=== PATIENT | female | born 1945 | race Caucasian/White ===

== ENCOUNTER 2017-11-12 19:32 | Observation (INO) | payer MEDICARE, SELFPAY ==
[2017-11-12] VITALS (8 sets, daily range): BP systolic 110–133; BP diastolic 57–79; PULSE 63–80; RESP 15–27; TEMP 36.5–36.6; O2SAT 94–100; BMI 25.4; BMI 25.2
--- NOTE | 2017-11-12 19:45 | RAD_ITS ---
STUDY: X-RAY CHEST REASON FOR EXAM: Female, 72 years old. CHEST PAIN TECHNIQUE: Single frontal view of the chest. COMPARISON: June 14, 2017 FINDINGS: Chronic appearing increased interstitial lung markings. There are multiple median sternotomy wires. There is an elevated right hemidiaphragm. There is bilateral basilar infiltrate / atelectasis. There are small bilateral pleural effusions. Normal heart size. Normal mediastinum and mario. Normal visualized pulmonary arteries. There is atherosclerotic calcification of the aortic arch with tortuosity. There are diffuse degenerative changes of the visualized thoracic spine. There is degenerative osteoarthritis of the bilateral shoulders. There is no demonstrated abnormality of the visualized soft tissue structures of the upper abdomen. RAD/Chest 1 View (Portable) IMPRESSION: There is bilateral basilar infiltrate / atelectasis. There are small bilateral pleural effusions. There has been improvement in the size of the bilateral pleural effusion. Electronically Signed: Mohit Duque MD at 20:17 EST , Service support ,
--- NOTE | 2017-11-12 19:45 | EKG12_ITS ---
Test Reason : CP Blood Pressure : / mmHG Vent. Rate : 075 BPM Atrial Rate : 075 BPM P-R Int : 118 ms QRS Dur : 080 ms QT Int : 378 ms P-R-T Axes : 046 040 116 degrees QTc Int : 422 ms Normal sinus rhythm Septal infarct , age undetermined T wave abnormality, consider lateral ischemia Abnormal ECG Confirmed by MONE DONAHUE, PATRICE ([id number]), communications editor RACQUEL MERA ([id number]) on 11/15/2017 3:49:09 PM Referred By: SUSAN Confirmed By:PATRICE SHORE MD
[2017-11-12 19:57] LABS: Absolute Neutrophil Count 6.2 X10^3/uL (2.0-7.7); Basophil# 0.01 X10^3/uL; Basophil% 0.1 % (0-1); Eosinophil# 0.09 X10^3/uL; Eosinophils% 1.1 % (0-5); Hematocrit 43.1 % (37-47); Hemoglobin 13.1 g/dl (12.0-15.0); Mean Corp Hgb Conc 30.4 g/gl (32-36); Mean Corpuscular Hgb 33.2 pg (27.0-32.0); Mean Corpuscular Volume 109.1 fL (81-99); Mean Platelet Vol. 10.9 fl (6.2-12.0); Monocyte# 0.56 X10^3/uL; Monocyte% 6.6 % (0-10); Neutrophil # 6.15 X10^3/uL (2.7-7.7); Neutrophil % 72.2 % (47-70); Platelet Count 170 K/mm3 (150-450); RBC Distribution Width CV 14.1 % (11.6-14.6); RBC Distribution Width SD 56.2 fl (35.1-43.9); Red Blood Count 3.95 M/mm3 (4.2-5.4); White Blood Count 8.5 K/mm3 (4.4-11.0)
[2017-11-12 19:58] LABS: POSITIVE COUNT NO; POSITIVE DIFFERENTIAL NO; POSITIVE MORPHOLOGY NO
--- NOTE | 2017-11-12 20:12 | ED.VISSUMM ---
- ER Visit Summary Date of Service: 11/12/17 Chief Complaint: Chest pain History of Present Illness: The patient is a 72 F who presents with right lower chest pain for the past hour and a half. It started while she was at rest. She describes as sharp and on the right side. Nothing makes it worse or better. She took nitroglycerin at home but it did not help. Denies dyspnea. EMS administered one nitroglycerin and 4 baby aspirin. It lowered her blood pressure but it did not help her symptoms. She has a history of coronary artery disease with a CABG a few years ago. She states it feels similar to right before she had her CABG. Physical Examination: Vital signs reviewed. HEENT exam unremarkable. Heart is regular rate and rhythm without murmurs. Lungs are clear to auscultation. Wall is nontender to palpation. Abdomen is soft and nontender. Extremities reveal no edema. Peripheral pulses are equal. Skin exam normal. Neurologic exam normal. Test Results: EKG is normal sinus rhythm with rate 75. Nonspecific lateral ST changes noted. Chest x-ray reveals bibasilar atelectasis. Laboratory studies show troponin 0 0.04. Patient was given aspirin by EMS. Has a NUNU score of 4. I feel she requires admission for her chest pain due to her history. Discussed the case with the hospitalist for admission Emergency Department Course and Treatment: [] Treatment Plan: Admit Disposition: [] Impression: Chest pain This note was generated with [employer] dictation software. It may contain incorrect words, spelling, and punctuation that were not noted in review of the chart prior to signing ED Disposition - Plan for ED Patient: Chief Complaint: Chest Pain Referrals: Kulwinder Chew MD [Primary Care Provider] -
[2017-11-12 20:14] LABS: Anion Gap 2 (5-15); BUN 15 mg/dL (7-18); BUN/Creat Ratio 34.9 RATIO (10-20); Calcium,Total 8.8 mg/dL (8.5-10.1); Chloride 98 mmol/L (98-107); Creatinine, Serum 0.43 mg/dL (0.55-1.02); EST Glomerular Filtration Rate 153 mL/min (>60); Est Glom Filt Rate - Afr Amer 185 mL/min (>60); Estimated Creatinine Clearance 35.99 ml/min; Glucose 96 mg/dL (74-106); Potassium 4.2 mmol/L (3.5-5.1); Sodium Level 143 mmol/L (136-145)
--- NOTE | 2017-11-12 23:38 | PCM.HP.STD ---
Problem List (1) Essential hypertension Status: Chronic (2) Gallbladder disease Status: Chronic (3) NSTEMI (non-ST elevated myocardial infarction) Status: Acute (4) OAB (overactive bladder) Status: Chronic History of Present Illness Date of Admission: 11/12/17 Chief Complaint: Chest pain The patient is a 72 year old female w/ h/o CAD s/p 2 vessels CABG in May 2017, HTN and overactive bladder admitted for chest pain. She was recently admitted for NSTEMI and had a two vessel CABG in May. After the surgery, she had right sided lower rib pain off and on. However, today pain was persistent and severe. The pain was similar to what she felt when she had the NSTEMI that required CABG. Nothing appeared to make it better or worse. Pain was nonexertional and started at rest. Pain was not improved with nitro or ASA. She has no other symptoms. No cough. No palpitation. . Past Medical History Past Medical History (Chronic Problems): Chronic Problems OAB (overactive bladder) (Chronic) Essential hypertension (Chronic) Gallbladder disease (Chronic) Allergies homatropine Allergy (Verified 11/12/17 19:57) Hives carisoprodol [From Soma] Adverse Reaction (Verified 11/12/17 19:57) DIZZY hydrocodone Adverse Reaction (Verified 11/12/17 19:57) DIZZY metronidazole Adverse Reaction (Verified 11/12/17 19:57) DIZZY pregabalin [From Lyrica] Adverse Reaction (Verified 11/12/17 19:57) MUSCLE ACHES propoxyphene [From Darvon] Adverse Reaction (Verified 11/12/17 19:57) DIZZY Home Medications: Ambulatory Orders Medication Instructions Recorded Atorvastatin Calcium [Lipitor] 40 mg PO QHS 11/12/17 Carvedilol [Coreg] 3.125 mg PO BID 11/12/17 Fomotidine 20 mg PO PRN PRN 11/12/17 Furosemide [Lasix] 20 mg PO DAILY 11/12/17 Lisinopril [Zestril] 10 mg PO DAILY 11/12/17 Oxybutynin [Ditropan] 5 mg PO DAILY 11/12/17 Surgical History: no surgical history Smoking Status: Never smoker - *Family History Maternal History Items: - - Non-contributory. Review of Systems Constitutional: Denies: Chills, Fever, Weight Change HEENT: Denies: Head Aches, Sinus Congestion, Sinus Drainage Cardiovascular: Reports: Chest Pain. Denies: Palpitations Respiratory: Denies: Cough, Shortness of breath at rest, Sputum production Gastrointestinal: Denies: Abdominal Pain, Nausea, Vomiting Genitourinary: Denies: Dysuria Musculoskeletal: Denies: Joint Pain, Joint Tenderness Skin: Denies: Rash, Wounds Neurological: Denies: Numbness, Tingling, Focal weakness Psychiatric: Denies: Anxiety, Depression, Homicidal Ideations, Suicidal Ideations Hematologic/ Lymphatic: Denies: Easy Bruising, Easy Bleeding VTE Information - Inpt Only VTE Present on Admission: No VTE Mechan Device Prophylaxis: SCD's VTE Pharm Prophylaxis ordered?: Yes - Physical Exam General: Alert, Oriented x3, Cooperative HEENT: Atraumatic, PERRLA, EOMI, Normocephalic Neck: Supple, No JVD, Negative Carotid Bruits Lungs: Clear to auscultation, Normal air movement Cardiovascular: Regular rate, No murmurs Abdomen: Bowel Sounds Present, Soft, Non Tender Extremities: No edema, Capillary Refill Less than 3 Seconds Skin: No rashes, No breakdown Musculoskeletal: No Tenderness to Palpation of Joints or Extremities Neurological: Cranial nerves II-XII grossly intact Psych/Mental Status: Normal Affect, Appropriate Vital Signs Temp Pulse Resp BP Pulse Ox 97.7 F L 79 18 133/76 H 99 11/12/17 23:15 11/12/17 23:15 11/12/17 23:15 11/12/17 23:15 11/12/17 23:15 Oxygen Flow Rate 2 Oxygen Delivery Method Nasal Cannula Weight: 56.7 kg Body Mass Index (BMI) 25.2 Assessment/Plan 72 year old female w/ h/o CAD s/p 2 vessels CABG in May 2017, HTN and overactive bladder admitted for chest pain. 1) Chest pain: Heart score [address] elevation / depression. Chest xray disclosed bibasilar atelectasis. Otherwise, unremarkable. Trops negative. Will get serial trops. ECHO in AM. Consulted cards and will defer if she needs stress test to cards given that she recently had CABG. C/w conservative medical management. 2) CAD s/p 2 vessel CABG: C/w meds. Monitor. 3) HTN: Resume home meds. 4) Prophylaxis: Heparin / SCD
[2017-11-13 00:45] LABS: Magnesium 2.4 mg/dL (1.6-2.6)
[2017-11-13 03:00] VITALS: PULSE 85
[2017-11-13 04:51] LABS: Absolute Lymphocyte Count 1.48 X10^3/ul (0.83-4.51); Absolute Neutrophil Count 5.2 X10^3/uL (2.0-7.7); Basophil# 0.01 X10^3/uL; Basophil% 0.1 % (0-1); Eosinophil# 0.09 X10^3/uL; Eosinophils% 1.2 % (0-5); Hematocrit 39.8 % (37-47); Hemoglobin 12.3 g/dl (12.0-15.0); Lymphocyte # 1.48 X10^3/ul (4.0); Lymphocyte % 20.2 % (19-41); Mean Corp Hgb Conc 30.9 g/gl (32-36); Mean Corpuscular Hgb 33.7 pg (27.0-32.0); Mean Platelet Vol. 11.3 fl (6.2-12.0); Monocyte# 0.54 X10^3/uL; Monocyte% 7.4 % (0-10); Neutrophil # 5.18 X10^3/uL (2.7-7.7); Platelet Count 145 K/mm3 (150-450); RBC Distribution Width SD 56.1 fl (35.1-43.9); Red Blood Count 3.65 M/mm3 (4.2-5.4); White Blood Count 7.3 K/mm3 (4.4-11.0)
[2017-11-13 05:01] LABS: POSITIVE COUNT NO; POSITIVE DIFFERENTIAL NO; POSITIVE MORPHOLOGY NO
[2017-11-13 05:04] LABS: ALB/GLOB Ratio 0.5 RATIO (0.9-2.4); AST(SGOT) 27 U/L (15-37); Alanine Aminotransfer ALT/SGPT 34 U/L (13-56); Albumin, Serum 2.5 g/dL (3.2-5.0); Alkaline Phosphatase 52 U/L (45-117); Anion Gap 0 (5-15); BUN 12 mg/dL (7-18); BUN/Creat Ratio 38.3 RATIO (10-20); Calcium,Total 8.3 mg/dL (8.5-10.1); Chloride 102 mmol/L (98-107); Cholesterol 101 mg/dL (200); Creatinine, Serum 0.31 mg/dL (0.55-1.02); EST Glomerular Filtration Rate 220 mL/min (>60); Est Glom Filt Rate - Afr Amer 267 mL/min (>60); Estimated Creatinine Clearance 44.85 ml/min; Globulin 4.6 g/dL (2.2-4.2); Glucose 97 mg/dL (74-106); High Density Lipoprotein 50 mg/dL; Potassium 3.8 mmol/L (3.5-5.1); Protein, Total 7.1 g/dL (6.4-8.2); Sodium Level 143 mmol/L (136-145); Thyroid Stim Hormone (TSH) 0.92 uIU/mL (0.358-3.74); Triglycerides 57 mg/dL; Very Low Density Lipoprotein 11 mg/dL (5-40)
[2017-11-13 05:15] VITALS: BP 97/52; PULSE 77; RESP 18; TEMP 36.5; O2SAT 98
--- NOTE | 2017-11-13 06:58 | PCM.PN.HOSP ---
Subjective: Patient with no acute events overnight per self and RN report. She had not marked telemetry events. She notes still discomfort to her R lower chest, worse with palpation but improved from admission presentation. She was evaluated also per Cardiology and they agreed her discomfort was atypical and likely musculoskeletal in etiology. She notes planned follow-up outpatient to establish with Dr. Marquez. Patient denies fevers, chills, nausea, emesis, abdominal pain or dyspnea. Objective: Physical Examination: General: awake, alert, oriented x 3 and cooperative, seated upright in bedside chair, in no apparent distress. Skin: normal color, turgor, no icterus, cyanosis. HEENT: AT/NC, EOMI, PERRLA, MMM. Lungs: Diminished BS BL, > bases, moderate effort, no rales, ronchi or wheezing. Heart: Regular rate and rhythm; no gallop, rub audible, reproducible R lower lateral chest/rib, intercostal discomfort with palpation. Abdomen: soft, NTTP, ND, normal BS. Extremities: no cyanosis, clubbing, or edema. Neurological: patient awake, alert, oriented x 3; cognitive function intact; pupils equally reactive to light and accomodation; cranial nerves II-XII grossly normal, moving all 4 extremities, no focal deficits, strength mildly globally decreased. Psychiatric: affect appears normal, no acute evidence of depressive or anxiety feelings. Vitals/I&O's: Vital Signs Temp Pulse Resp BP Pulse Ox 97.7 F L 77 18 97/52 L 98 11/13/17 05:15 11/13/17 05:15 11/13/17 05:15 11/13/17 05:15 11/13/17 05:15 Oxygen Flow Rate 2 Oxygen Delivery Method Nasal Cannula Weight: 125 lb 0.034 oz Body Mass Index (BMI) 25.2 Intake and Output for Last 24 Hours 11/11/17 11/12/17 11/13/17 23:59 23:59 23:59 Intake Total / Balance Laboratory Results 11/12/17 23:40: Magnesium 2.4 11/12/17 23:40: Troponin I 0.05 11/13/17 03:42: WBC 7.3, RBC 3.65 L, Hgb 12.3, Hct 39.8, MCV 109.0 H, MCH 33.7 H, MCHC 30.9 L, RDW 14.0, RDW Differential 56.1 H, Plt Count 145 L, MPV 11.3, Immature Gran % (Auto) 0.100, Neut % (Auto) 71.0 H, Lymph % (Auto) 20.2, [place] % (Auto) 7.4, Eos % (Auto) 1.2, Baso % (Auto) 0.1, Absolute Neuts (auto) 5.2, Absolute Lymphs (auto) 1.48, Total Counted Not Reportable 11/13/17 03:42: Sodium Cancelled, Potassium Cancelled, Chloride Cancelled, Carbon Dioxide Cancelled, Anion Gap Cancelled, BUN Cancelled, Creatinine Cancelled, Estim Creat Clear Calc Cancelled, Est GFR (MDRD) Af Amer Cancelled, Est GFR (MDRD) Non-Af Cancelled, BUN/Creatinine Ratio Cancelled, Glucose Cancelled, Calcium Cancelled, Total Bilirubin Cancelled, AST Cancelled, ALT Cancelled, Alkaline Phosphatase Cancelled, Total Protein Cancelled, Albumin Cancelled, Globulin Cancelled, Albumin/Globulin Ratio Cancelled, Triglycerides Cancelled, Cholesterol Cancelled, LDL Cholesterol Cancelled, VLDL Cholesterol Cancelled, HDL Cholesterol Cancelled, TSH Cancelled 11/13/17 03:42: Sodium 143, Potassium 3.8, Chloride 102, Carbon Dioxide 41.0 H, Anion Gap 0 L, BUN 12, Creatinine 0.31 L, Estim Creat Clear Calc 44.85, Est GFR (MDRD) Af Amer 267, Est GFR (MDRD) Non-Af 220, BUN/Creatinine Ratio 38.3 H, Glucose 97, Calcium 8.3 L, Total Bilirubin 0.40, AST 27, ALT 34, Alkaline Phosphatase 52, Troponin I 0.05, Total Protein 7.1, Albumin 2.5 L, Globulin 4.6 H, Albumin/Globulin Ratio 0.5 L, Triglycerides 57, Cholesterol 101, LDL Cholesterol 40, VLDL Cholesterol 11, HDL Cholesterol 50, TSH 0.92 Current Medications Atorvastatin Calcium (Lipitor) 40 mg PO QHS [facility] Carvedilol (Coreg) 3.125 mg PO BID [facility] Furosemide (Lasix) 20 mg PO DAILY [facility] Heparin Sodium (Porcine) (Heparin Na) 5,000 unit SC Q8 [facility] Last Admin: 11/13/17 05:19 Dose: 5,000 units Lisinopril (Zestril) 10 mg PO DAILY [facility] Nutritional Formula (Lactose Free) (Ensure Enlive) 120 ml PO 4X/DAY [facility] Oxybutynin Chloride (Ditropan) 5 mg PO DAILY [facility] Sodium Chloride () 5 - 30 ml IV UD PRN PRN Reason: SALINE FLUSH Assessment/Plan The patient is a 72 y/o F w/ PMHx: HTN, HLD, Hx NSTEMI, OAB, CAD s/p CABG with following intermittent R sided lower rib pain (05/2017) who presents to the [facility] ED on 11/12/17 with persistent severe R lower rib pain which she notes is similar to when she had her NSTEMI onset, started at rest, no improvement w/ ASA or NG administration. (1) Chest Pain w/ Recent NSTEMI, CAD s/p CABG: EKG in ED w/ no acute evidence of ischemia, CXR w/ no acute findings, trop series remains normal 0.04-->0.05-->0.05. Admitted to the PCU, maintained on a monitored bed, continued serial cardiac enzymes and EKGs which remained unchanged and normal/stable, magnesium normal level. Continued medical management w/ asa, BB, statin w/ AM FLP. Cardiology consulted and felt chest pain/rib discomfort was atypical and consistent with muscle pain, not cardiac in etiology with recommendation for discharge with follow-up with [employer] in the office to review admission and consider follow-up echocardiogram as needed with last noted performed 05/2017. During the admission, blood pressure was low normal range therefore lisinopril dose was decreased. Patient discharged to home with encouraged PCP follow-up to further assess and treat her right lower rib pain on an outpatient basis. (2) Hypertension: Continue home regimen including Coreg, Lasix, lisinopril with change as noted, PRN hydralazine. (3) Hyperlipidemia: Continue home statin regimen. (4) JUAN: Maintain on home ditropan regimen. (5) DVT Prophylaxis: SCDs, heparin.
--- NOTE | 2017-11-13 07:03 | PN_ITS ---
Subjective: Patient with no acute events overnight per self and RN report. She had not marked telemetry events. She notes still discomfort to her R lower chest, worse with palpation but improved from admission presentation. She was evaluated also per Cardiology and they agreed her discomfort was atypical and likely musculoskeletal in etiology. She notes planned follow-up outpatient to establish with Dr. Marquez. Patient denies fevers, chills, nausea, emesis, abdominal pain or dyspnea. Objective: Physical Examination: General: awake, alert, oriented x 3 and cooperative, seated upright in bedside chair, in no apparent distress. Skin: normal color, turgor, no icterus, cyanosis. HEENT: AT/NC, EOMI, PERRLA, MMM. Lungs: Diminished BS BL, > bases, moderate effort, no rales, ronchi or wheezing. Heart: Regular rate and rhythm; no gallop, rub audible, reproducible R lower lateral chest/rib, intercostal discomfort with palpation. Abdomen: soft, NTTP, ND, normal BS. Extremities: no cyanosis, clubbing, or edema. Neurological: patient awake, alert, oriented x 3; cognitive function intact; pupils equally reactive to light and accomodation; cranial nerves II-XII grossly normal, moving all 4 extremities, no focal deficits, strength mildly globally decreased. Psychiatric: affect appears normal, no acute evidence of depressive or anxiety feelings. Vitals/I&O's: Vital Signs Temp Pulse Resp BP Pulse Ox 97.7 F L 77 18 97/52 L 98 11/13/17 05:15 11/13/17 05:15 11/13/17 05:15 11/13/17 05:15 11/13/17 05:15 Oxygen Flow Rate 2 Oxygen Delivery Method Nasal Cannula Weight: 125 lb 0.034 oz Body Mass Index (BMI) 25.2 Intake and Output for Last 24 Hours 11/11/17 11/12/17 11/13/17 23:59 23:59 23:59 Intake Total / Balance Laboratory Results 11/12/17 23:40: Magnesium 2.4 11/12/17 23:40: Troponin I 0.05 11/13/17 03:42: WBC 7.3, RBC 3.65 L, Hgb 12.3, Hct 39.8, MCV 109.0 H, MCH 33.7 H , MCHC 30.9 L, RDW 14.0, RDW Differential 56.1 H, Plt Count 145 L, MPV 11.3, Immature Gran % (Auto) 0.100, Neut % (Auto) 71.0 H, Lymph % (Auto) 20.2, [place] % (Auto) 7.4, Eos % (Auto) 1.2, Baso % (Auto) 0.1, Absolute Neuts (auto) 5.2, Absolute Lymphs (auto) 1.48, Total Counted Not Reportable 11/13/17 03:42: Sodium Cancelled, Potassium Cancelled, Chloride Cancelled, Carbon Dioxide Cancelled, Anion Gap Cancelled, BUN Cancelled, Creatinine Cancelled, Estim Creat Clear Calc Cancelled, Est GFR (MDRD) Af Amer Cancelled, Est GFR (MDRD) Non-Af Cancelled, BUN/Creatinine Ratio Cancelled, Glucose Cancelled, Calcium Cancelled, Total Bilirubin Cancelled, AST Cancelled, ALT Cancelled, Alkaline Phosphatase Cancelled, Total Protein Cancelled, Albumin Cancelled, Globulin Cancelled, Albumin/Globulin Ratio Cancelled, Triglycerides Cancelled, Cholesterol Cancelled, LDL Cholesterol Cancelled, VLDL Cholesterol Cancelled, HDL Cholesterol Cancelled, TSH Cancelled 11/13/17 03:42: Sodium 143, Potassium 3.8, Chloride 102, Carbon Dioxide 41.0 H, Anion Gap 0 L, BUN 12, Creatinine 0.31 L, Estim Creat Clear Calc 44.85, Est GFR (MDRD) Af Amer 267, Est GFR (MDRD) Non-Af 220, BUN/Creatinine Ratio 38.3 H, Glucose 97, Calcium 8.3 L, Total Bilirubin 0.40, AST 27, ALT 34, Alkaline Phosphatase 52, Troponin I 0.05, Total Protein 7.1, Albumin 2.5 L, Globulin 4.6 H, Albumin/Globulin Ratio 0.5 L, Triglycerides 57, Cholesterol 101, LDL Cholesterol 40, VLDL Cholesterol 11, HDL Cholesterol 50, TSH 0.92 Current Medications Atorvastatin Calcium (Lipitor) 40 mg PO QHS [facility] Carvedilol (Coreg) 3.125 mg PO BID [facility] Furosemide (Lasix) 20 mg PO DAILY [facility] Heparin Sodium (Porcine) (Heparin Na) 5,000 unit SC Q8 [facility] Last Admin: 11/13/17 05:19 Dose: 5,000 units Lisinopril (Zestril) 10 mg PO DAILY [facility] Nutritional Formula (Lactose Free) (Ensure Enlive) 120 ml PO 4X/DAY [facility] Oxybutynin Chloride (Ditropan) 5 mg PO DAILY [facility] Sodium Chloride () 5 - 30 ml IV UD PRN PRN Reason: SALINE FLUSH Assessment/Plan The patient is a 72 y/o F w/ PMHx: HTN, HLD, Hx NSTEMI, OAB, CAD s/p CABG with following intermittent R sided lower rib pain (05/2017) who presents to the [facility] ED on 11/12/17 with persistent severe R lower rib pain which she notes is similar to when she had her NSTEMI onset, started at rest, no improvement w/ ASA or NG administration. (1) Chest Pain w/ Recent NSTEMI, CAD s/p CABG: EKG in ED w/ no acute evidence of ischemia, CXR w/ no acute findings, trop series remains normal 0.04-->0.05--> 0.05. Admitted to the PCU, maintained on a monitored bed, continued serial cardiac enzymes and EKGs which remained unchanged and normal/stable, magnesium normal level. Continued medical management w/ asa, BB, statin w/ AM FLP. Cardiology consulted and felt chest pain/rib discomfort was atypical and consistent with muscle pain, not cardiac in etiology with recommendation for discharge with follow-up with [employer] in the office to review admission and consider follow-up echocardiogram as needed with last noted performed 2016. During the admission, blood pressure was low normal range therefore lisinopril dose was decreased. Patient discharged to home with encouraged PCP follow-up to further assess and treat her right lower rib pain on an outpatient basis. (2) Hypertension: Continue home regimen including Coreg, Lasix, lisinopril with change as noted, PRN hydralazine. (3) Hyperlipidemia: Continue home statin regimen. (4) JUAN: Maintain on home ditropan regimen. (5) DVT Prophylaxis: SCDs, heparin.
[2017-11-13 07:07] VITALS: PULSE 74
[2017-11-13 07:36] VITALS: O2SAT 99
--- NOTE | 2017-11-13 09:22 | CON.PCM_ITS ---
Problem List (1) Chest pain Status: Acute Qualifiers: Chest pain type: precordial pain Qualified Code(s): R07.2 - Precordial pain Reason for Consult Date of Consultation: 11/13/17 History of Present Illness: The patient is a 72 year old F with past medical history significant for coronary artery disease status post coronary artery bypass graft surgery in May of last year. He also has history of hypertension and ischemic cardiomyopathy. She presented to the emergency room yesterday with complaints of right lower rib/chest pain. Ordering to the patient, it was sharp. She could not identify any precipitating, exacerbating or relieving factors. According to her, she had symptoms like these when she was diagnosed with non- ST elevation myocardial infarction last year. However upon review of chart, at that time she was having anterior chest discomfort radiating into the neck and shoulders. Per patient, her right lower chest pain was not exacerbated with exertion. She could not tell me if it was pleuritic in nature on not. Associated shortness of breath. No diaphoresis. No nausea or vomiting. Presently asymptomatic. [] Past Medical History Allergies/Adverse Reactions: Allergies homatropine Allergy (Verified 11/12/17 19:57) Hives carisoprodol [From Soma] Adverse Reaction (Verified 11/12/17 19:57) DIZZY hydrocodone Adverse Reaction (Verified 11/12/17 19:57) DIZZY metronidazole Adverse Reaction (Verified 11/12/17 19:57) DIZZY pregabalin [From Lyrica] Adverse Reaction (Verified 11/12/17 19:57) MUSCLE ACHES propoxyphene [From Darvon] Adverse Reaction (Verified 11/12/17 19:57) DIZZY Home Medications: Ambulatory Orders Medication Instructions Recorded Atorvastatin Calcium [Lipitor] 40 mg PO QHS 11/12/17 Carvedilol [Coreg] 3.125 mg PO BID 11/12/17 Fomotidine 20 mg PO PRN PRN 11/12/17 Furosemide [Lasix] 20 mg PO DAILY 11/12/17 Lisinopril [Zestril] 10 mg PO DAILY 11/12/17 Oxybutynin [Ditropan] 5 mg PO DAILY 11/12/17 Past Medical History (Chronic Problems): Chronic Problems OAB (overactive bladder) (Chronic) Essential hypertension (Chronic) Gallbladder disease (Chronic) Surgical History: no surgical history, - - CABG - *Family History Maternal History Items: - - Non-contributory. Smoking Status: Never smoker Review of Systems - Review of Systems General: Denies: Fever, Chills Cardiovascular: Reports: - - Right lower rib/chest pain as noted in history of presenting illness. Denies: Shortness of Breath, Shortness of Breath at Rest, Shortness of Breath with Exertion, Orthopnea, PND, Peripheral Edema Genitourinary: Reports: - - Overactive bladder Neurological: Denies: History of TIA, History of CVA Hematologic/ Lymphatic: Denies: Easy Brusing, Easy Bleeding Objective: Vital Signs Temp Pulse Resp BP Pulse Ox 97.7 F L 74 18 97/52 L 99 11/13/17 05:15 11/13/17 07:07 11/13/17 05:15 11/13/17 05:15 11/13/17 07:36 Oxygen Flow Rate 2 Oxygen Delivery Method Nasal Cannula Weight: 56.7 kg Body Mass Index (BMI) 25.2 Intake and Output for Last 24 Hours 11/11/17 11/12/17 11/13/17 23:59 23:59 23:59 Intake Total 90 / 90 Balance 90 / 90 General: Healthy Appearing, Awake, Alert, Oriented x 3, No Acute Distress HEENT: Atraumatic Oral: Moist Mucosa Neck: Supple Chest Wall: - - Positive reproducible tenderness on palpation of the right lower chest. Per patient, this is the same discomfort that brought her to the hospital Lungs: Diminished [place] Bases Cardiovascular: Regular Rhythm, Normal S1, Normal S2 Abdomen: Bowel Sounds Present, Soft, Non Tender Extremities: No edema Neurological: No Focal Motor or Sensory Deficit Psych/Mental Status: Appropriate 11/12/17 23:40: Magnesium 2.4 11/12/17 23:40: Troponin I 0.05 11/13/17 03:42: WBC 7.3, RBC 3.65 L, Hgb 12.3, Hct 39.8, MCV 109.0 H, MCH 33.7 H , MCHC 30.9 L, RDW 14.0, RDW Differential 56.1 H, Plt Count 145 L, MPV 11.3, Immature Gran % (Auto) 0.100, Neut % (Auto) 71.0 H, Lymph % (Auto) 20.2, [place] % (Auto) 7.4, Eos % (Auto) 1.2, Baso % (Auto) 0.1, Absolute Neuts (auto) 5.2, Total Counted Not Reportable 11/13/17 03:42: Sodium Cancelled, Potassium Cancelled, Chloride Cancelled, Carbon Dioxide Cancelled, Anion Gap Cancelled, BUN Cancelled, Creatinine Cancelled, Est GFR (MDRD) Af Amer Cancelled, Est GFR (MDRD) Non-Af Cancelled, BUN/Creatinine Ratio Cancelled, Glucose Cancelled, Calcium Cancelled, Total Bilirubin Cancelled, Triglycerides Cancelled, Cholesterol Cancelled, LDL Cholesterol Cancelled, VLDL Cholesterol Cancelled, HDL Cholesterol Cancelled 11/13/17 03:42: Sodium 143, Potassium 3.8, Chloride 102, Carbon Dioxide 41.0 H, Anion Gap 0 L, BUN 12, Creatinine 0.31 L, Est GFR (MDRD) Af Amer 267, Est GFR ( MDRD) Non-Af 220, BUN/Creatinine Ratio 38.3 H, Glucose 97, Calcium 8.3 L, Total Bilirubin 0.40, Troponin I 0.05, Triglycerides 57, Cholesterol 101, LDL Cholesterol 40, VLDL Cholesterol 11, HDL Cholesterol 50 Rhythm: Normal sinus rhythm EKG: Normal sinus rhythm. Changes consistent with her previous anterolateral myocardial infarction are noted. Same changes noted on EKG from 2017 Assessment/Plan 1. Atypical chest pain. Reproducible. Right lower ribs. Consider musculoskeletal. Also noted bibasilar infiltrates/atelectasis on chest x-ray with small pleural effusions. Manage as per internal medicine 2. History of coronary artery disease status post two-vessel CABG in May of last year. Negative troponin. Atypical pain as noted above. No further workup at present 3. Ischemic cardiomyopathy. Last EF was 25%. An echo has been pending next 4. Dyslipidemia
[2017-11-13 10:05] VITALS: BP 99/58; PULSE 79; RESP 16; TEMP 36.4; O2SAT 99
[2017-11-13] MEDS: Oxybutynin 5 MG Tablet PO (10:11)
[2017-11-13] MEDS: Furosemide 20 MG Tablet PO (10:11)
--- NOTE | 2017-11-13 10:53 | PCM.DC ---
- Discharge Diagnoses Current Active Problems: (1) Chest Pain, Atypical, Reproducible, Musculoskeletal Right Lower Intracostal Pain (2) Recent NSTEMI, CAD s/p CABG (2) Hypertension (3) Hyperlipidemia (4) Overactive Bladder (5) Ischemic Cardiomyopathy (EF prior 25%) You will use the following diet at home:: Cardiac Your food should be the consistency of: Regular Your liquids should be the consistency of: Regular/Thin Discharge Activity: Return to Normal Activity May resume sexual activity in: No Restrictions Weight Bearing Status: Weight bearing as tolerated Call your doctor if you observe: Fever of 101 or Higher, Inability to urinate, Inability to have a bowel movement, Shortness of breath, Dizziness, Fainting spells, Chest pain, Uncontrolled pain Instructions: ED Chest Pain NonCardiac, ED Strain Chest Wall Additional Instructions: During the admission you were evaluated per Cardiology and they felt your chest pain/rib discomfort was atypical and consistent with muscle pain, not cardiac in etiology. Your cardiac enzymes remained normal and your telemetry monitoring was unremarkable. Please plan to follow-up with your Date Puller in the office to review admission and consider follow-up echocardiogram as needed with last noted performed 05/2017. During the admission, your blood pressure was low normal range therefore your lisinopril dose was decreased and script was sent to your pharmacy. Allergies/Adverse Reactions: Allergies homatropine Allergy (Verified 11/12/17 19:57) Hives carisoprodol [From Soma] Adverse Reaction (Verified 11/12/17 19:57) DIZZY hydrocodone Adverse Reaction (Verified 11/12/17 19:57) DIZZY metronidazole Adverse Reaction (Verified 11/12/17 19:57) DIZZY pregabalin [From Lyrica] Adverse Reaction (Verified 11/12/17 19:57) MUSCLE ACHES propoxyphene [From Darvon] Adverse Reaction (Verified 11/12/17 19:57) DIZZY Medications to take at Discharge Atorvastatin Calcium [Lipitor] 40 mg PO QHS 11/12/17 Carvedilol [Coreg (Beta Ron)] 3.125 mg PO BID 11/12/17 Fomotidine 20 mg PO PRN PRN 11/12/17 Furosemide [Lasix] 20 mg PO DAILY 11/12/17 Oxybutynin [Ditropan] 5 mg PO DAILY 11/12/17 Aspirin [Aspirin, Baby] 81 mg PO DAILY@0800 #30 tab.chew 11/13/17 Lisinopril [Zestril] 5 mg PO DAILY #30 tab 11/13/17 The following prescriptions were given: Aspirin [Aspirin, Baby] 81 mg PO DAILY@0800 #30 tab.chew Lisinopril [Zestril] 5 mg PO DAILY #30 tab Primary Care Physician: Kulwinder Chew MD [Primary Care Provider] - Please follow up with your Primary Care Physician in: Follow-up within 3-5 days to review admission. Please Follow Up With: Date Puller When: Please follow-up with your Cardiology office within 1-2 weeks, may see SALES AND MARKETING COORDINATOR. Proposed Discharge Date: 11/13/17
--- NOTE | 2017-11-13 11:00 | PCM.DC.SUM ---
Discharge Date and Diagnosis Date of Admission: 11/12/17 Date of Discharge: 11/13/17 - Primary Discharge Diagnosis (1) Chest Pain, Atypical, Reproducible, Musculoskeletal Right Lower Intracostal Pain (2) Recent NSTEMI, CAD s/p CABG (2) Hypertension (3) Hyperlipidemia (4) Overactive Bladder (5) Ischemic Cardiomyopathy (EF prior 25%) - Secondary Discharge Diagnosis Chronic Problems OAB (overactive bladder) (Chronic) Essential hypertension (Chronic) Gallbladder disease (Chronic) Hospital Course and Treatment Imaging Results: 11/13/17 05:55 Echo Complete [ECHO] AM (NON MEDS) Dr. Abdalla Cardiology Operations: None Procedures: EKG Summary of Care Provided: The patient is a 72 y/o F w/ PMHx: HTN, HLD, Hx NSTEMI, OAB, CAD s/p CABG with following intermittent R sided lower rib pain (05/2017) who presented to the [facility] ED on 11/12/17 with persistent severe R lower rib pain which she notes is similar to when she had her NSTEMI onset, started at rest, no improvement w/ ASA or NG administration. EKG in ED w/ no acute evidence of ischemia, CXR w/ no acute findings, trop series remains normal 0.04-->0.05-->0.05. Admitted to the PCU, maintained on a monitored bed, continued serial cardiac enzymes and EKGs which remained unchanged and normal/stable, magnesium normal level. Continued medical management w/ asa, BB, statin w/ AM FLP. Cardiology consulted and felt chest pain/rib discomfort was atypical and consistent with muscle pain, not cardiac in etiology with recommendation for discharge with follow-up with your Network Engineering Advisor in the office to review admission and consider follow-up echocardiogram as needed with last noted performed 05/2017. During the admission, blood pressure was low normal range therefore lisinopril dose was decreased. Patient discharged to home with encouraged PCP follow-up to further assess and treat her right lower rib pain on an outpatient basis. Discharge Activity: Return to Normal Activity May resume sexual activity in: No Restrictions Weight Bearing Status: Weight bearing as tolerated Call your doctor if you observe: Fever of 101 or Higher, Inability to urinate, Inability to have a bowel movement, Shortness of breath, Dizziness, Fainting spells, Chest pain, Uncontrolled pain Home Medications: Medications to take at Discharge Atorvastatin Calcium [Lipitor] 40 mg PO QHS 11/12/17 Carvedilol [Coreg (Beta Ron)] 3.125 mg PO BID 11/12/17 Fomotidine 20 mg PO PRN PRN 11/12/17 Furosemide [Lasix] 20 mg PO DAILY 11/12/17 Oxybutynin [Ditropan] 5 mg PO DAILY 11/12/17 Aspirin [Aspirin, Baby] 81 mg PO DAILY@0800 #30 tab.chew 11/13/17 Lisinopril [Zestril] 5 mg PO DAILY #30 tab 11/13/17 Following Prescrptions Were Given to Patient: Aspirin [Aspirin, Baby] 81 mg PO DAILY@0800 #30 tab.chew Lisinopril [Zestril] 5 mg PO DAILY #30 tab Primary Care Physician: Kulwinder Chew MD [Primary Care Provider] - Please follow up with your Primary Care Physician in: Follow-up within 3-5 days to review admission. Please Follow Up With: Network Engineering Advisor When: Please follow-up with your Cardiology office within 1-2 weeks, may see REIMBURSEMENT ANALYST. Patient Instructions: ED Chest Pain NonCardiac, ED Strain Chest Wall Disposition: Home Minutes spent on discharge:: 25 Patient Condition:: Fair Meaningful Use Info Meaningful Use Diagnoses (Choose all that apply): None applicable Code Visit OBSV E&M: 48298 Observation care discharge
--- NOTE | 2017-11-13 11:05 | DS.PCM_ITS ---
Discharge Date and Diagnosis Date of Admission: 11/12/17 Date of Discharge: 11/13/17 - Primary Discharge Diagnosis (1) Chest Pain, Atypical, Reproducible, Musculoskeletal Right Lower Intracostal Pain (2) Recent NSTEMI, CAD s/p CABG (2) Hypertension (3) Hyperlipidemia (4) Overactive Bladder (5) Ischemic Cardiomyopathy (EF prior 25%) - Secondary Discharge Diagnosis Chronic Problems OAB (overactive bladder) (Chronic) Essential hypertension (Chronic) Gallbladder disease (Chronic) Hospital Course and Treatment Imaging Results: 11/13/17 05:55 Echo Complete [ECHO] AM (NON MEDS) Dr. Abdalla Cardiology Operations: None Procedures: EKG Summary of Care Provided: The patient is a 72 y/o F w/ PMHx: HTN, HLD, Hx NSTEMI, OAB, CAD s/p CABG with following intermittent R sided lower rib pain (05/2017) who presented to the [facility] ED on 11/12/17 with persistent severe R lower rib pain which she notes is similar to when she had her NSTEMI onset, started at rest, no improvement w/ ASA or NG administration. EKG in ED w/ no acute evidence of ischemia, CXR w/ no acute findings, trop series remains normal 0.04-->0.05-->0.05. Admitted to the PCU, maintained on a monitored bed, continued serial cardiac enzymes and EKGs which remained unchanged and normal/stable, magnesium normal level. Continued medical management w/ asa, BB, statin w/ AM FLP. Cardiology consulted and felt chest pain/rib discomfort was atypical and consistent with muscle pain, not cardiac in etiology with recommendation for discharge with follow-up with your Pension Adviser in the office to review admission and consider follow-up echocardiogram as needed with last noted performed 05/2017. During the admission , blood pressure was low normal range therefore lisinopril dose was decreased. Patient discharged to home with encouraged PCP follow-up to further assess and treat her right lower rib pain on an outpatient basis. Discharge Activity: Return to Normal Activity May resume sexual activity in: No Restrictions Weight Bearing Status: Weight bearing as tolerated Call your doctor if you observe: Fever of 101 or Higher, Inability to urinate, Inability to have a bowel movement, Shortness of breath, Dizziness, Fainting spells, Chest pain, Uncontrolled pain Home Medications: Medications to take at Discharge Atorvastatin Calcium [Lipitor] 40 mg PO QHS 11/12/17 Carvedilol [Coreg (Beta Ron)] 3.125 mg PO BID 11/12/17 Fomotidine 20 mg PO PRN PRN 11/12/17 Furosemide [Lasix] 20 mg PO DAILY 11/12/17 Oxybutynin [Ditropan] 5 mg PO DAILY 11/12/17 Aspirin [Aspirin, Baby] 81 mg PO DAILY@0800 #30 tab.chew 11/13/17 Lisinopril [Zestril] 5 mg PO DAILY #30 tab 11/13/17 Following Prescrptions Were Given to Patient: Aspirin [Aspirin, Baby] 81 mg PO DAILY@0800 #30 tab.chew Lisinopril [Zestril] 5 mg PO DAILY #30 tab Primary Care Physician: Kulwinder Chew MD [Primary Care Provider] - Please follow up with your Primary Care Physician in: Follow-up within 3-5 days to review admission. Please Follow Up With: Pension Adviser When: Please follow-up with your Cardiology office within 1-2 weeks, may see LEAD BUSINESS ANALYST. Patient Instructions: ED Chest Pain NonCardiac, ED Strain Chest Wall Disposition: Home Minutes spent on discharge:: 25 Patient Condition:: Fair Meaningful Use Info Meaningful Use Diagnoses (Choose all that apply): None applicable Code Visit OBSV E&M: 52679 Observation care discharge
[2017-11-13 11:24] VITALS: PULSE 81
== END 2017-11-13 13:19 | disposition home or self-care (01) ==
LOC: ED 20:28 → PCU 23:02
PROVIDERS: Admitting Provider Internal Medicine; Emergency Provider Emergency Medicine; Family Provider Family Medicine; PCP Family Medicine; Visit Provider Family Medicine
DX: R07.89 Other chest pain (principal); I25.2 Old myocardial infarction; I25.10 Atherosclerotic heart disease of native coronary artery without angina pectoris; I10 Essential (primary) hypertension; E78.5 Hyperlipidemia, unspecified; N32.81 Overactive bladder; I25.5 Ischemic cardiomyopathy; Z95.1 Presence of aortocoronary bypass graft; Z79.899 Other long term (current) drug therapy
CPT/HCPCS: 36415; 71045; 80048; 80053; 80061; 83735; 84443; 84484; 85025; 93005; 96372; 97162; 97166; 97802; 99218; 99285; A4216; G0378; G8978; G8979; G8987; G8988

== ENCOUNTER → 2018-01-04 12:56 | Outpatient (CLI) | payer MEDICARE, SELFPAY ==
--- NOTE | 2018-01-04 12:59 | PCM.CR.HP2 ---
CR - History & Physical - General Arrival date:: 01/04/18 Arrival time:: 13:00 Date of Referral:: 12/30/17 Date of CR Evaluation:: 01/04/18 Referring Physician: Dr. Konstantin Marquez Primary Diagnosis: Z95.1 Presence of aortocoronary bypass 06/01/2017 - History of Present Cardiac Event Onset Date: Enter Onset Date of cardiac illnesses in Comment field below Acute Myocardial Infarction within 12 months:: Yes Coronary Artery Bypass Graft:: Yes Were there any complications?: During the initial eval pt complained of CP. Pt taken to ED. HG notified. - Medications Home Medications: Ambulatory Orders Medication Instructions Recorded Atorvastatin Calcium [Lipitor] 40 mg PO QHS 11/12/17 Carvedilol [Coreg (Beta Ron)] 3.125 mg PO BID 11/12/17 Furosemide [Lasix] 20 mg PO DAILY 11/12/17 Oxybutynin [Ditropan] 5 mg PO DAILY 11/12/17 Aspirin [Aspirin, Baby] 81 mg PO DAILY@0800 #30 tab.chew 11/13/17 Lisinopril [Zestril] 5 mg PO DAILY #30 tab 11/13/17 famotidine 20 mg tablet 20 mg PO QDAY PRN 11/16/17 meclizine 25 mg tablet 25 mg PO Q6H PRN tab 11/16/17 escitalopram 5 mg tablet 5 mg PO QDAY 12/29/17 - Allergies Allergies/Adverse Reactions: Allergies homatropine Allergy (Verified 12/29/17 13:38) Hives carisoprodol [From Soma] Adverse Reaction (Verified 12/29/17 13:38) DIZZY hydrocodone Adverse Reaction (Verified 12/29/17 13:38) DIZZY metronidazole Adverse Reaction (Verified 12/29/17 13:38) DIZZY pregabalin [From Lyrica] Adverse Reaction (Verified 12/29/17 13:38) MUSCLE ACHES propoxyphene [From Darvon] Adverse Reaction (Verified 12/29/17 13:38) DIZZY - Sleep Disorder Evaluation Hx of Sleep Apnea: No Do you snore loudly (louder than talking or can be heard through closed doors)?: No Do you often feel tired/ fatigued/ sleepy during daytime?: No Has anyone observed you stop breathing during sleep?: No History of Hypertension (for STOP score): Yes STOP Results: Negative Advanced Directives - Advanced Directives Power of Psychological Assistant: Yes Living Will: Yes Advance Directives Information Provided: Yes Advance Directives on File: No DNR Order?:: No Past Medical History - Past Medical Illness Medical History: Past Medical History (Last Reviewed 12/29/17 @ 13:45 by Kmai Tucker) Chronic systolic congestive heart failure (Chronic) I50.22 Atherosclerotic heart disease of [place] coronary artery without angina pectoris (Chronic) I25.10 CABG x2- ACHARYA to LAD and SVG to OM 05/29/17 Chest pain (Acute) R07.9 Essential hypertension (Chronic) I10 NSTEMI (non-ST elevated myocardial infarction) (Acute) I21.4 History of basal cell carcinoma Z85.828 right calf and lower back Respiratory failure J96.90 Gallbladder disease K82.9 OAB (overactive bladder) N32.81 Spinal stenosis M48.00 Pleural effusion, bilateral J90 - Past Surgical History Surgical History: Past Surgical History (Last Reviewed 12/29/17 @ 13:45 by Kami Tucker) S/P CABG (coronary artery bypass graft) (Chronic) Onset Date: ~05/29/17 Z95.1 CABG x2- ACHARYA to LAD and SVG to OM 05/29/17 History of tonsillectomy Z98.890, Z90.89 History of back surgery Z98.890 History of thoracentesis Z98.890 Surgical History: no surgical history, - - CABG - Family History Summary Family History: Family History (Last Reviewed 12/29/17 @ 13:45 by Kami Tucker) Father Heart disease Hypertension Social History - Smoking History Smoking Status: Never smoker Hx Tobacco Use: No Hx Smoking Exposure: No - Alcohol Use Alcohol Usage: No - Substance Abuse Hx Substance Use: No - Occupation Occupation (List type of work in comments):: Retired - Hobbies, Recreation, Social Activities Hobbies: Sewing, Reading, Other - gardening Recreational Activities: I am able to engage in a few activities Social Environment - Status Marital Status: - Current Living Arrangements Living Environment:: Alone - Children Do any of your children live nearby?: Yes - Safety Do you feel safe in your surroundings?: Yes - Assistance Do you need any assistance at home?: has friends and neighbors Review of Systems - Review of Systems Hints: Right click = Denies ([place]ash). Left click = Reports ([place]) Review of Present Symptoms: Reports: Shortness of Breath with Exertion, Angina, Fatigue, Sleep - Normal. Denies: Shortness of Breath at Rest, PVD, Operative Discomfort, Wound Healing, Dizziness/Lightheadedness, Heart Arrhythmia/Irregularities, Appetite - Normal, Appetite - Special Diet, Sexual Changes - Pain Is Patient Pain Free?: No Pain Location: chest, back Pain Level: 01/19 Risk Factor Assessment - Chief Complaint Chief Complaint: CABG - Vital Signs Pulse Ox: 98 - Pulse Pulse Rate: 74 Pulse Rhythm: Regular - Hypertension Blood Pressure Sitting - Left Arm: 80/48 - Diabetes Nutrition Referral for Diabetes: No - Obesity Height: 1.5 m Weight:: 53.977 kg Weight in Pounds: 119.0 lbs Body Mass Index (BMI): 24.0 Nutritional Referral for Obesity: No - Physical Inactivity Physical Inactivity: Recreational activity - Risk Stratification Risk Guidelines: Lowest Risk: Risk Factor for Smoking, Risk Factor for Diabetes, Risk Factor for Obesity, Risk Factor for Depression, Moderate Risk: Risk Factor for Dyslipidemia, Risk Factor for Hypertension, Risk Factor for Sedentary Lifestyle - For Smoking Smoking Risk Guidelines: Smoking Low Risk: None or quit greater than 6 months ago. Smoking Moderate Risk: Smoker or quit 6 months or less ago. Smoking High Risk: Smoker - For Dyslipidemia Dyslipidemia Risk Guidelines: Low Risk: Moderate Risk: High Risk: 15-25% fat 25.1-29% fat >/= 30% fat. <7% sat fat 7-9% sat fat >9% sat fat. <150 mg chol 150-299 mg chol >/= 300 mg chol. LDL <100 LDL 100-129 LDL >/= 130. Chol/HDL ratio <5.0 Chol/HDL ratio 5.0-6.0 Chol/HDL ratio >6.0. Triglycerides <100 Triglycerides 100-149 Triglycerides >/= 150 - For Diabetes Mellitus Diabetes Risk Guidelines: Diabetes Low Risk: HgA1c <6.5% and/or FBG <120. Diabetes Moderate Risk: HgA1c 6.6-7.9% and/or FBG 120-180. Diabetes High Risk: HgA1c >/= 8% and/or FBG >180 - For Obesity/Overweight Obesity/Overweight Risk Guidelines: Obesity Low Risk: BMI <25.0. Obesity Moderate Risk: BMI 25-29.9. Obesity High Risk: BMI >/= 30.0 - For Hypertension Hypertension Risk Guidelines: Hypertension Low Risk: Systolic <120 and Diastolic <80. Hypertension Moderate Risk: Systolic 120-139 and Diastolic 80-89. Hypertension High Risk: Systolic >/= 140 and Diastolic >/= 90 - For Sedentary Lifestyle Sedentary Lifestyle Risk Guidelines: Sedentary Lifestyle Low Risk: >/= 1,500 kcal/week. Sedentary Lifestyle Moderate Risk: 700-1,499 kcal/week. Sedentary Lifestyle High Risk: < 700 kcal/week - For Depression Depression Risk Guidelines: Depression Low Risk: Not clinically depressed. Depression Moderate Risk: Mildly depressed. Depression High Risk: Clinically depressed - Family History Family History: Family History (Last Reviewed 12/29/17 @ 13:45 by Kami Tucker) Father Heart disease Hypertension Motivation - Motivation to Participate On a scale of 1 to 10, how prepared are you to commit to attending program?: 8 What do you see as barriers to successfully being able to complete the program?: lack of motivation What do you see as the benefits of succesfully completing the program? In other words, what do you hope to get out of participating in the program?: off of O2 Are there issues you are dealing with that will interfere with completing the program?: none Do you have a spouse or signficant other, family or friends who will help support you to complete the program?: yes
--- NOTE | 2018-01-04 13:09 | CR.ITP_ITS ---
General Information - General Information Admitting Diagnosis: Z95.1 Presence of aortocoronary bypass 06/01/2017 Special Needs: Pt developed CP during eval. Pt to ED. HG notified. - Education/Goals Barriers to Learning: Vision Impairment Individual Counseling: Initial Assessment: Abnormal Cholesterol Levels, High Blood Pressure Cardiac Rehabilitation Goals: 1. Maintain the individual as the primary focus of care. 2. To improve the patient's quality of life. 3. Identification of cardiac risk factors and provide cardiac risk factor management. 4. Enhance the psychosocial status of the patient. 5. Reconditioning enough to allow the patient to resume customary activities. 6. Control symptoms of cardiac disease Scale for measuring improvement of personal goals: Enter appropriate number in Comments. 2 = Unchanged. 3 = Slightly Better. 4 = Moderate Improvement. 5 = Met my Goal Exercise - Initial Assessment - Visit Date of Eval: 01/04/18 - initial eval - Stages of Change Stages of Change:: Contemplate - Exercise Prescription Mode:: Biodyne, NuStep, Arm Ergometer Angina with exercise?: No Target Heart Rate:: 94-109 - Hypertension Do any of the following apply?: Yes - Intervention Home Exercise/Activity Goal:: Sitting Time <3 hrs/day - Education Goals:: Warm-up, RPE CHUNG Scale, S/S, Safe Exercise, Self-Monitoring - Exercise Program Goals Exercise Program Goals: Aerobic Activity >30 min, B/P <130/80 Nutrition - Initial Assessment - Program Goals Nutrition Program Goals: LDL <70. Total Cholesterol <200. HDL >45. Triglycerides <150. HgbA1C <7%. BMI <25 - Visit Date of Assessment:: 01/04/18 - Stages of Change Stages of Change:: Contemplate - Diabetes Diabetes:: No - Weight Management Height: 1.5 m Weight:: 53.977 kg - Intervention Referral to dietitian:: No Referral to Diabetic Clinic:: No Will attend diet classes:: Yes - Education Gave educational materials for:: Signs & symptoms of hypoglycemia, Signs & symptoms of hyperglycemia, Relate diabetes to coronary artery disease, Healthy eating Tobacco - Initial Assessment - Program Goals Tobacco Program Goals: Complete smoking cessation. Attend education classes. Improve Knowledge Test score - Stage of Change Stages of Change:: Contemplate - Learning Barriers Learning Barriers: Vision - Family Support Do you have family support?: Yes - Tobacco Use Tobacco Use: Non-smoker Do you use smokeless tobacco?: No - Intervention Smoking Cessation Referral:: No Individual Education/Counseling:: No Education Schedule Given:: Yes - Education Gave educational material for:: Tobacco triggers, Coronary artery disease, Risk factors, Sexuality, Medical compliance, Cardiac A&P, Angina signs & symptoms Psychosocial - Initial Assess - Target Goals Target Goals: Assess presence or absence of depression. Using a valid screening tool, maximizes coping skills. Positive support system - Stages of Change Stages of Change:: Contemplate - Psychosocial Test Tool Used:: HANDS Depression Questionnaire - Intervention PS - Interventions: Yes Attend Stress Management Classes, Yes Uses Stress Management Skills, No Referral to Mental Health, No Referral to [facility] Case Management, No Referral to Physician - Education Gave educational materials for:: Coping techniques, Signs & symptoms of depression, Stress management, Relaxation techniques - Assistive Devices Assistive Devices:: None Fall Risk Assessed:: Yes
--- NOTE | 2018-01-04 13:10 | CR.HP_ITS ---
CR - History & Physical - General Arrival date:: 01/04/18 Arrival time:: 13:00 Date of Referral:: 12/30/17 Date of CR Evaluation:: 01/04/18 Referring Physician: Dr. Konstantin Marquez Primary Diagnosis: Z95.1 Presence of aortocoronary bypass 06/01/2017 - History of Present Cardiac Event Onset Date: Enter Onset Date of cardiac illnesses in Comment field below Acute Myocardial Infarction within 12 months:: Yes Coronary Artery Bypass Graft:: Yes Were there any complications?: During the initial eval pt complained of CP. Pt taken to ED. HG notified. - Medications Home Medications: Ambulatory Orders Medication Instructions Recorded Atorvastatin Calcium [Lipitor] 40 mg PO QHS 11/12/17 Carvedilol [Coreg (Beta Ron)] 3.125 mg PO BID 11/12/17 Furosemide [Lasix] 20 mg PO DAILY 11/12/17 Oxybutynin [Ditropan] 5 mg PO DAILY 11/12/17 Aspirin [Aspirin, Baby] 81 mg PO DAILY@0800 #30 tab.chew 11/13/17 Lisinopril [Zestril] 5 mg PO DAILY #30 tab 11/13/17 famotidine 20 mg tablet 20 mg PO QDAY PRN 11/16/17 meclizine 25 mg tablet 25 mg PO Q6H PRN tab 11/16/17 escitalopram 5 mg tablet 5 mg PO QDAY 12/29/17 - Allergies Allergies/Adverse Reactions: Allergies homatropine Allergy (Verified 12/29/17 13:38) Hives carisoprodol [From Soma] Adverse Reaction (Verified 12/29/17 13:38) DIZZY hydrocodone Adverse Reaction (Verified 12/29/17 13:38) DIZZY metronidazole Adverse Reaction (Verified 12/29/17 13:38) DIZZY pregabalin [From Lyrica] Adverse Reaction (Verified 12/29/17 13:38) MUSCLE ACHES propoxyphene [From Darvon] Adverse Reaction (Verified 12/29/17 13:38) DIZZY - Sleep Disorder Evaluation Hx of Sleep Apnea: No Do you snore loudly (louder than talking or can be heard through closed doors)? : No Do you often feel tired/ fatigued/ sleepy during daytime?: No Has anyone observed you stop breathing during sleep?: No History of Hypertension (for STOP score): Yes STOP Results: Negative Advanced Directives - Advanced Directives Power of Talent Program Manager: Yes Living Will: Yes Advance Directives Information Provided: Yes Advance Directives on File: No DNR Order?:: No Past Medical History - Past Medical Illness Medical History: Past Medical History (Last Reviewed 12/29/17 @ 13:45 by Kami Tucker) Chronic systolic congestive heart failure (Chronic) I50.22 Atherosclerotic heart disease of [place] coronary artery without angina pectoris (Chronic) I25.10 CABG x2- ACHARYA to LAD and SVG to OM 05/29/17 Chest pain (Acute) R07.9 Essential hypertension (Chronic) I10 NSTEMI (non-ST elevated myocardial infarction) (Acute) I21.4 History of basal cell carcinoma Z85.828 right calf and lower back Respiratory failure J96.90 Gallbladder disease K82.9 OAB (overactive bladder) N32.81 Spinal stenosis M48.00 Pleural effusion, bilateral J90 - Past Surgical History Surgical History: Past Surgical History (Last Reviewed 12/29/17 @ 13:45 by Kami Tucker) S/P CABG (coronary artery bypass graft) (Chronic) Onset Date: ~05/29/17 Z95.1 CABG x2- ACHARYA to LAD and SVG to OM 05/29/17 History of tonsillectomy Z98.890, Z90.89 History of back surgery Z98.890 History of thoracentesis Z98.890 Surgical History: no surgical history, - - CABG - Family History Summary Family History: Family History (Last Reviewed 12/29/17 @ 13:45 by Kami Tucker) Father Heart disease Hypertension Social History - Smoking History Smoking Status: Never smoker Hx Tobacco Use: No Hx Smoking Exposure: No - Alcohol Use Alcohol Usage: No - Substance Abuse Hx Substance Use: No - Occupation Occupation (List type of work in comments):: Retired - Hobbies, Recreation, Social Activities Hobbies: Sewing, Reading, Other - gardening Recreational Activities: I am able to engage in a few activities Social Environment - Status Marital Status: - Current Living Arrangements Living Environment:: Alone - Children Do any of your children live nearby?: Yes - Safety Do you feel safe in your surroundings?: Yes - Assistance Do you need any assistance at home?: has friends and neighbors Review of Systems - Review of Systems Hints: Right click = Denies (Slash). Left click = Reports ([place]) Review of Present Symptoms: Reports: Shortness of Breath with Exertion, Angina, Fatigue, Sleep - Normal. Denies: Shortness of Breath at Rest, PVD, Operative Discomfort, Wound Healing, Dizziness/Lightheadedness, Heart Arrhythmia/ Irregularities, Appetite - Normal, Appetite - Special Diet, Sexual Changes - Pain Is Patient Pain Free?: No Pain Location: chest, back Pain Level: 01/19 Risk Factor Assessment - Chief Complaint Chief Complaint: CABG - Vital Signs Pulse Ox: 98 - Pulse Pulse Rate: 74 Pulse Rhythm: Regular - Hypertension Blood Pressure Sitting - Left Arm: 80/48 - Diabetes Nutrition Referral for Diabetes: No - Obesity Height: 1.5 m Weight:: 53.977 kg Weight in Pounds: 119.0 lbs Body Mass Index (BMI): 24.0 Nutritional Referral for Obesity: No - Physical Inactivity Physical Inactivity: Recreational activity - Risk Stratification Risk Guidelines: Lowest Risk: Risk Factor for Smoking, Risk Factor for Diabetes , Risk Factor for Obesity, Risk Factor for Depression, Moderate Risk: Risk Factor for Dyslipidemia, Risk Factor for Hypertension, Risk Factor for Sedentary Lifestyle - For Smoking Smoking Risk Guidelines: Smoking Low Risk: None or quit greater than 6 months ago. Smoking Moderate Risk: Smoker or quit 6 months or less ago. Smoking High Risk: Smoker - For Dyslipidemia Dyslipidemia Risk Guidelines: Low Risk: Moderate Risk: High Risk: 15-25% fat 25.1-29% fat >/= 30% fat. <7% sat fat 7-9% sat fat >9% sat fat. <150 mg chol 150-299 mg chol >/= 300 mg chol. LDL <100 LDL 100-129 LDL >/= 130. Chol/HDL ratio <5.0 Chol/HDL ratio 5.0-6.0 Chol/HDL ratio >6.0. Triglycerides <100 Triglycerides 100-149 Triglycerides >/= 150 - For Diabetes Mellitus Diabetes Risk Guidelines: Diabetes Low Risk: HgA1c <6.5% and/or FBG <120. Diabetes Moderate Risk: HgA1c 6.6-7.9% and/or FBG 120-180. Diabetes High Risk: HgA1c >/= 8% and/or FBG >180 - For Obesity/Overweight Obesity/Overweight Risk Guidelines: Obesity Low Risk: BMI <25.0. Obesity Moderate Risk: BMI 25-29.9. Obesity High Risk: BMI >/= 30.0 - For Hypertension Hypertension Risk Guidelines: Hypertension Low Risk: Systolic <120 and Diastolic <80. Hypertension Moderate Risk: Systolic 120-139 and Diastolic 80-89. Hypertension High Risk: Systolic >/= 140 and Diastolic >/= 90 - For Sedentary Lifestyle Sedentary Lifestyle Risk Guidelines: Sedentary Lifestyle Low Risk: >/= 1 ,500 kcal/week. Sedentary Lifestyle Moderate Risk: 700-1,499 kcal/week. Sedentary Lifestyle High Risk: < 700 kcal/week - For Depression Depression Risk Guidelines: Depression Low Risk: Not clinically depressed. Depression Moderate Risk: Mildly depressed. Depression High Risk: Clinically depressed - Family History Family History: Family History (Last Reviewed 12/29/17 @ 13:45 by Kami Tucker) Father Heart disease Hypertension Motivation - Motivation to Participate On a scale of 1 to 10, how prepared are you to commit to attending program?: 8 What do you see as barriers to successfully being able to complete the program? : lack of motivation What do you see as the benefits of succesfully completing the program? In other words, what do you hope to get out of participating in the program?: off of O2 Are there issues you are dealing with that will interfere with completing the program?: none Do you have a spouse or signficant other, family or friends who will help support you to complete the program?: yes
[2018-01-04 14:00] VITALS: BP 80/48; PULSE 74; O2SAT 98; BMI 24.0
== END ==
PROVIDERS: Family Provider Family Medicine; PCP Family Medicine; Visit Provider Internal Medicine Cardiovascular Disease
DX: I25.10 Atherosclerotic heart disease of native coronary artery without angina pectoris (principal); I25.2 Old myocardial infarction; Z95.1 Presence of aortocoronary bypass graft

== ENCOUNTER 2018-01-04 13:55 | Emergency (ER) | payer MEDICARE, SELFPAY ==
[2018-01-04 13:55] VITALS: BP 126/83; PULSE 72; RESP 25; TEMP 36.8; O2SAT 96; BMI 24.0
--- NOTE | 2018-01-04 14:47 | EKG12_ITS ---
Test Reason : CP Blood Pressure : / mmHG Vent. Rate : 066 BPM Atrial Rate : 066 BPM P-R Int : 126 ms QRS Dur : 088 ms QT Int : 396 ms P-R-T Axes : 051 057 102 degrees QTc Int : 415 ms Normal sinus rhythm Septal infarct , age undetermined T wave abnormality, consider anterolateral ischemia Abnormal ECG Confirmed by MONE DONAHUE, PATRICE ([id number]), editorial assistant RACQUEL MERA ([id number]) on 01/06/2018 1:09:03 PM Referred By: MELANY Confirmed By:PATRICE SHORE MD
--- NOTE | 2018-01-04 14:47 | RAD_ITS ---
STUDY: X-RAY CHEST REASON FOR EXAM: Female, 72 years old. Short of breath and dyspnea. Status post CABG in May 2017. TECHNIQUE: Single portable frontal chest. COMPARISON: November 12, 2017. FINDINGS: Again seen is mild asymmetric elevation of the right hemidiaphragm of indeterminate etiology and unknown clinical significance. There is a small amount of atelectasis versus early pneumonitis in the peridiaphragmatic right lateral lung base there is a stable when considering differences in technique opacity within the left lung base with partial obscuration of the left hemidiaphragm and blunting of the left lateral costophrenic angle. There is no pneumothorax. Sternal cerclage wires and vascular clips are present from a prior sternotomy and coronary artery bypass graft procedure (CABG). There is no demonstrated mediastinal lymphadenopathy or mediastinal mass lesion. There is no vascular congestion. There is atherosclerotic tortuosity of the aortic arch and descending thoracic aorta. There is no evident acute osseous abnormality. There is no demonstrated abnormality of the visualized soft tissue structures of the upper abdomen. RAD/Chest 1 View (Portable) IMPRESSION: Mild improvement of previously identified right basilar atelectasis. Stable left basilar atelectasis versus pneumonitis. Small left basal pleural effusion. No pneumothorax. Status post CABG. Senescent changes of the descending thoracic aorta. Electronically Signed: Austin Parker MD at 15:56 EDT , Service support ,
[2018-01-04 14:49] VITALS: O2SAT 98
[2018-01-04 15:00] LABS: Absolute Lymphocyte Count 1.49 X10^3/ul (0.83-4.51); Absolute Neutrophil Count 4.9 X10^3/uL (2.0-7.7); Basophil# 0.01 X10^3/uL; Basophil% 0.1 % (0-1); Eosinophil# 0.08 X10^3/uL; Eosinophils% 1.1 % (0-5); Hemoglobin 13.7 g/dl (12.0-15.0); Lymphocyte # 1.49 X10^3/ul (4.0); Lymphocyte % 21.4 % (19-41); Mean Corp Hgb Conc 31.1 g/gl (32-36); Mean Corpuscular Hgb 33.2 pg (27.0-32.0); Mean Corpuscular Volume 106.5 fL (81-99); Mean Platelet Vol. 10.9 fl (6.2-12.0); Monocyte# 0.47 X10^3/uL; Monocyte% 6.7 % (0-10); Neutrophil # 4.91 X10^3/uL (2.7-7.7); Neutrophil % 70.6 % (47-70); POSITIVE COUNT NO; POSITIVE DIFFERENTIAL NO; POSITIVE MORPHOLOGY NO; Platelet Count 152 K/mm3 (150-450); RBC Distribution Width CV 13.3 % (11.6-14.6); RBC Distribution Width SD 51.6 fl (35.1-43.9); Red Blood Count 4.13 M/mm3 (4.2-5.4)
[2018-01-04] MEDS: Aspirin 81 MG TAB.CHEW 324 MG PO (15:00)
[2018-01-04] MEDS: 0.9% Normal Saline 1,000 ML 150 ML IV (15:00)
[2018-01-04 15:01] VITALS: BP 141/84; PULSE 79; RESP 30; O2SAT 98
[2018-01-04 15:13] LABS: Anion Gap -1 (5-15); BUN 19 mg/dL (7-18); BUN/Creat Ratio 44.7 RATIO (10-20); Calcium,Total 8.7 mg/dL (8.5-10.1); Chloride 97 mmol/L (98-107); Creatinine, Serum 0.42 mg/dL (0.55-1.02); EST Glomerular Filtration Rate 155 mL/min (>60); Est Glom Filt Rate - Afr Amer 187 mL/min (>60); Estimated Creatinine Clearance 42.69 ml/min; Glucose 108 mg/dL (74-106); Potassium 4.1 mmol/L (3.5-5.1); Sodium Level 140 mmol/L (136-145)
[2018-01-04 15:48] LABS: D-Dimer Quantitative (DVT/PE) 1.15 FEU/ug/m (0.27-0.49)
--- NOTE | 2018-01-04 15:50 | CT_ITS ---
STUDY: CTA CHEST REASON FOR EXAM: Female, 72 years old. RADIATION DOSAGE (If Supplied By Facility): CTDIvol = ( 10.56 ) mGy, DLP = ( 265.36 ) mGycm TECHNIQUE: The examination was performed with the intravenous administration of 75 ml of Isovue 370 contrast material. Post-processing of the angiographic images was performed, with multiplanar reformation and 3D reconstruction. Individualized dose optimization techniques were used for this CT. COMPARISON: 06/14/2017. FINDINGS: Normal enhancement of the main pulmonary artery and right and left pulmonary arteries. Normal enhancement of the bilateral peripheral pulmonary arteries. There is no demonstrated pulmonary embolism. Normal thoracic aorta and visualized great vessels. There is no demonstrated aortic dissection. There is mild cardiomegaly. Normal mediastinum. Normal hilar regions. Normal visualized trachea and bronchi. There is elevation of the right hemidiaphragm and only moderate lung volumes. There is a jijwu-pn-chrawocb left pleural effusion. There is mild atelectasis in the right lung base and moderate atelectasis in the left lower lobe. Normal chest wall structures. There are degenerative changes of thoracic spine. Normal visualized upper abdomen. CT/CTA Chest W/WO Contrast IMPRESSION: Normal CTA chest examination, without a demonstrated pulmonary embolism or arterial dissection. [id number] left pleural effusion. Atelectasis in both lower lobes especially on the left. Electronically Signed: Hung Johns MD at 16:46 EDT , Service support ,
--- NOTE | 2018-01-04 15:52 | ED.RN ---
PER SHELDON DEWITT D-DIMER=1.15. SHELDON DEWITT REPORTS SHE INFORMED DR MOSLEY.
[2018-01-04 16:26] VITALS: BP 130/73; PULSE 84; RESP 27; O2SAT 100
--- NOTE | 2018-01-04 16:27 | ED.DCSUM_ITS ---
- ER Visit Summary Date of Service: 01/04/18 Chief Complaint: [Chest pain] History of Present Illness: The patient is a 72 F [presents with chest pain that started around 1:45 PM today. Patient states that she was registering upstairs for cardiac rehab when she developed discomfort in her chest that kind of radiated into her neck. Patient has a hard time describing the pain but did feel somewhat short of breath with it. Patient denies any nausea or vomiting with it. Patient states that since her two-vessel CABG in May she has had some intermittent discomfort in her chest. Patient does not seem to think the pain is been exertional. Patient denies recent travel or surgery. She denies any fever or cough.] Physical Examination: [HEENT-PERRLA, EOMI. Cranial nerves II through XII grossly intact. TMs clear. Mucous membranes moist. No adenopathy. Cardiovascular-regular rate and rhythm without murmur or ectopy Lungs-clear to auscultation, chest wall stable without crepitus or subcu emphysema Abdomen-normoactive bowel sounds, soft, nontender, no rebound or rigidity, no peritoneal signs. Extremities-intact ?4, normal range of motion, normal pulses, atraumatic] Test Results: [EKG obtained on arrival showed a sinus rhythm with a ventricular rate of 66 bpm with old septal infarct noted and nonspecific ST changes. When compared with prior EKG from November 12, 2017 no new changes noted.] CBC with differential 7.0, hemoglobin 13.7, hematocrit 44, platelets 152. Chemistries unremarkable. Troponin was 0.03. D-dimer was elevated 1.15. Chest x-ray showed nothing acute. CTA chest pending Emergency Department Course and Treatment: [Patient received aspirin in the emergency department ] Treatment Plan: [Admits pending results of CT scan] Disposition: [Pending results of CT scan] Impression: [Chest pain] This note was generated with [employer] dictation software. It may contain incorrect words, spelling, and punctuation that were not noted in review of the chart prior to signing ED Disposition - Plan for ED Patient: Chief Complaint: Chest Pain Referrals: Kulwinder Chew MD [Primary Care Provider] -
[2018-01-04 17:15] VITALS: BP 127/79; PULSE 84; RESP 22; O2SAT 100
--- NOTE | 2018-01-04 18:03 | ED.DCSUM_ITS ---
- ER Visit Summary Date of Service: 01/04/18 Chief Complaint: [] History of Present Illness: The patient is a 72 F [] Physical Examination: [] Test Results: [] Emergency Department Course and Treatment: [] Treatment Plan: [] Disposition: [] Impression: [] This note was generated with [employer] dictation software. It may contain incorrect words, spelling, and punctuation that were not noted in review of the chart prior to signing ED Disposition - Plan for ED Patient: Disposition: Home or Assisted Living Chief Complaint: Chest Pain Instructions: ED Chest Pain Atypical Unkn Cause Referrals: Kulwinder Chew MD [Primary Care Provider] - 3-5 Days
== END 2018-01-04 18:19 | disposition home or self-care (01) ==
PROVIDERS: Emergency Provider Emergency Medicine; Family Provider Family Medicine; PCP Family Medicine
DX: R07.89 Other chest pain (principal); R06.02 Shortness of breath; I25.10 Atherosclerotic heart disease of native coronary artery without angina pectoris; I10 Essential (primary) hypertension; I25.2 Old myocardial infarction; Z95.1 Presence of aortocoronary bypass graft; Z79.899 Other long term (current) drug therapy
CPT/HCPCS: 71045; 71275; 80048; 84484; 85025; 85379; 93005; 96360; 96361; 99285; J7030; Q9967; A4216

== ENCOUNTER → 2018-01-23 08:47 | Outpatient (CLI) | payer MEDICARE, SELFPAY ==
--- NOTE | 2018-01-23 08:48 | RAD_ITS ---
STUDY: X-RAY CHEST REASON FOR EXAM: Female, 72 years old. Increasing shortness of breath. TECHNIQUE: AP and lateral views of the chest. COMPARISON: Comparison is made with prior study dated January 04, 2018. FINDINGS: Stable pleural parenchymal changes of the left lung base suggestive of small left pleural effusion with underlying infiltration and/or atelectasis. Stable blunting of the right costophrenic angle. Sternal cerclage wires and vascular clips are present from a prior sternotomy and coronary artery bypass graft procedure (CABG). Normal mediastinum and mario. Normal visualized pulmonary arteries. There is atherosclerotic tortuosity of the aortic arch and descending thoracic aorta. Normal visualized thoracic spine. Normal visualized ribs, clavicles, and shoulders. There is no demonstrated abnormality of the visualized soft tissue structures of the upper abdomen. RAD/Chest PA and Lateral IMPRESSION: Stable pleural parenchymal changes at the left lung base. Electronically Signed: Lewis Bruner MD at 14:32 EDT Tel [phone], Service support ,
--- NOTE | 2018-01-23 09:00 | ECHOD_ITS ---
Reason For Study: CAD/ASHD Procedure This was a 2D Doppler, Color Flow transthoracic echocardiogram. The exam was of fair technical quality due to diminished acoustic windows. The study was technically difficult. Exam performed in department. Left Ventricle Normal LV size. Moderate segmental systolic dysfunction (see wall motion). The estimated ejection fraction is 35 %. There is evidence of diastolic dysfunction. Anterio-Basal: Hypokinetic. Basal inferoseptal: Hypokinetic. Basal anteroseptal: Severely Hypokinetic. Mid-Anterior : Akinetic. Mid- Lateral : Hypokinetic. Mid-Inferior: Hypokinetic. Mid-inferoseptal : Hypokinetic. Mid- anteroseptal : Akinetic. [place] : Akinetic. Right Ventricle Normal RV size. Normal systolic function. Atria The left atrium is mildly enlarged. Normal right atrium. No doppler evidence for ASD. Mitral Valve There is no mitral annular calcification. Mild diffuse mitral valve thickening. Mild focal mitral valve calcification, bileaflet. Trivial mitral valve insufficiency. Tricuspid Valve Normal tricuspid valve. Mild tricuspid valve insufficiency. Right ventricular systolic pressure estimated to be 32 mmHg. Aortic Valve Trisinus/trileaflet aortic valve. Mild diffuse aortic valve thickening. Pulmonic Valve The pulmonic valve is not well visualized. Trivial pulmonic valve insufficiency. Great Vessels Normal sized aortic root. Pericardium/Pleural No pericardial effusion. MMode/2D Measurements & Calculations LVIDd: 4.8 cm IVSd: 1.0 cm Ao root diam: 3.2 cm LVIDs: 3.5 cm LVPWd: 0.92 cm RVDd: 2.8 cm FS: 26.9 % LAV(MOD-bp): 39.7 ml EDV(MOD-sp4): 66.8 ml EDV(MOD-sp2): 78.8 ml LAV(MOD-bp) Indexed: 26.5 ml/m2 ESV(MOD-sp4): 45.1 ml EF(MOD-sp2): 37.5 % LAV(MOD-sp2): 42.6 ml EF(MOD-sp4): 32.5 % LAV(MOD-sp4): 36.4 ml SV(MOD-sp4): 21.7 ml SV(MOD-sp2): 29.6 ml LA A4 area: 14.5 cm2 RA A4 area: 9.8 cm2 Time Measurements MV dec time: 0.17 sec Doppler Measurements & Calculations MV E max marcel: 69.1 cm/sec Lat Peak E' Marcel: 8.3 cm/sec Med Peak E' Marcel: 4.9 cm/sec MV A max marcel: 64.3 cm/sec E/E' lat: 8.3 E/E' med: 14.1 MV E/A: 1.1 Ao V2 max: 125.6 cm/sec LV V1 max: 98.0 cm/sec PA V2 max: 99.4 cm/sec Ao max P.3 mmHg LV V1 max P.8 mmHg TR max marcel: 241.9 cm/sec TR max P.5 mmHg Interpretation Summary The study was technically difficult. Moderate segmental systolic dysfunction (see wall motion). The estimated ejection fraction is 35 %. The left atrium is mildly enlarged. Mild diffuse mitral valve thickening. Mild focal mitral valve calcification, bileaflet. Trivial mitral valve insufficiency. Mild tricuspid valve insufficiency. Mild diffuse aortic valve thickening. Trivial pulmonic valve insufficiency. Right ventricular systolic pressure estimated to be 32 mmHg. There is evidence of diastolic dysfunction. Ordering Physician: Konstantin Marquez Referring Physician: RAZA LOPEZ Performed By: Megan Hess RDCS
== END ==
PROVIDERS: Family Provider Family Medicine; PCP Family Medicine; Visit Provider Internal Medicine Cardiovascular Disease
DX: I50.22 Chronic systolic (congestive) heart failure (principal); I25.10 Atherosclerotic heart disease of native coronary artery without angina pectoris; Z95.1 Presence of aortocoronary bypass graft; I25.2 Old myocardial infarction
CPT/HCPCS: 71046; 93306

== ENCOUNTER 2018-02-09 17:19 | Inpatient (IN) | payer MEDICARE, SELFPAY ==
[2018-02-09] VITALS (13 sets, daily range): BP systolic 129–164; BP diastolic 75–99; PULSE 80–91; RESP 12–36; TEMP 36.6–37.2; O2SAT 82–100; BMI 21.2; BMI 22.4
--- NOTE | 2018-02-09 17:48 | EKG12_ITS ---
Test Reason : SOB Blood Pressure : / mmHG Vent. Rate : 083 BPM Atrial Rate : 083 BPM P-R Int : 120 ms QRS Dur : 090 ms QT Int : 362 ms P-R-T Axes : 068 060 093 degrees QTc Int : 425 ms Normal sinus rhythm T wave abnormality, consider lateral ischemia Abnormal ECG Confirmed by ELIANA SHARP ([id number]), assistant film editor RACQUEL MERA ([id number]) on 02/20/2018 6:28:03 PM Referred By: JULES Confirmed By:ELIANA SHARP
--- NOTE | 2018-02-09 17:48 | RAD_ITS ---
STUDY: X-RAY CHEST REASON FOR EXAM: Female, 72 years old. Short of breath TECHNIQUE: Frontal view of the chest COMPARISON: 01/23/2018 FINDINGS: There is stable opacity at the left lung base. The lungs are otherwise clear. There is no right pleural effusion. There is no pneumothorax. The heart is normal in size. The patient is status post sternotomy. The visualized osseous structures are within normal limits. RAD/Chest 1 View (Portable) IMPRESSION: Stable opacity at the left lung base which may be due to atelectasis, infiltrate and/or effusion. Electronically Signed: Murali Gonzalez, at 18:54 EDT Tel , Service support ,
[2018-02-09] MEDS: Ipratropium/Albuterol Sulfate 3 ML AMPUL.NEB INHALATION ×2 (18:07→22:58)
[2018-02-09 18:15] LABS: Absolute Lymphocyte Count 1.11 X10^3/ul (0.83-4.51); Absolute Neutrophil Count 5.7 X10^3/uL (2.0-7.7); Basophil# 0.01 X10^3/uL; Basophil% 0.1 % (0-1); Eosinophil# 0.06 X10^3/uL; Eosinophils% 0.8 % (0-5); Hematocrit 43.2 % (37-47); Hemoglobin 13.9 g/dl (12.0-15.0); Lymphocyte # 1.11 X10^3/ul (4.0); Lymphocyte % 14.8 % (19-41); Mean Corp Hgb Conc 32.2 g/gl (32-36); Mean Corpuscular Hgb 34.5 pg (27.0-32.0); Mean Corpuscular Volume 107.2 fL (81-99); Mean Platelet Vol. 10.2 fl (6.2-12.0); Monocyte# 0.61 X10^3/uL; Monocyte% 8.1 % (0-10); Neutrophil # 5.71 X10^3/uL (2.7-7.7); Neutrophil % 76.1 % (47-70); Platelet Count 144 K/mm3 (150-450); RBC Distribution Width CV 13.7 % (11.6-14.6); RBC Distribution Width SD 53.9 fl (35.1-43.9); Red Blood Count 4.03 M/mm3 (4.2-5.4); White Blood Count 7.5 K/mm3 (4.4-11.0)
[2018-02-09 18:25] LABS: POSITIVE COUNT NO; POSITIVE DIFFERENTIAL NO; POSITIVE MORPHOLOGY NO
[2018-02-09 18:29] LABS: BUN 21 mg/dL (7-18); BUN/Creat Ratio 51.3 RATIO (10-20); Calcium,Total 9.4 mg/dL (8.5-10.1); Chloride 92 mmol/L (98-107); Creatinine, Serum 0.41 mg/dL (0.55-1.02); EST Glomerular Filtration Rate 162 mL/min (>60); Est Glom Filt Rate - Afr Amer 196 mL/min (>60); Estimated Creatinine Clearance 35.99 ml/min; Glucose 136 mg/dL (74-106); Potassium 3.4 mmol/L (3.5-5.1); Sodium Level 140 mmol/L (136-145)
[2018-02-09 18:30] LABS: Carbon Dioxide > 45.0 mmol/L (21.0-32.0)
[2018-02-09 18:53] LABS: BNP,B-Type NATRIURETIC PEPTIDE 146.4 pg/mL (0-100)
--- NOTE | 2018-02-09 19:19 | PCM.HP.STD ---
Problem List (1) Elevation of cardiac enzymes Status: Acute (2) Acute respiratory failure with hypoxia and hypercapnia Status: Acute (3) Ischemic cardiomyopathy Status: Chronic (4) Chronic systolic congestive heart failure Status: Chronic (5) Atherosclerotic heart disease of [place] coronary artery without angina pectoris Status: Chronic Qualifiers: [place] vs. transplanted heart: unspecified whether hopi or transplanted heart Qualified Code(s): I25.10 - Atherosclerotic heart disease of hop[place] coronary artery without angina pectoris Comment: CABG x2- ACHARYA to LAD and SVG to OM 05/29/17 (6) S/P CABG (coronary artery bypass graft) Status: Chronic Comment: CABG x2- ACHARYA to LAD and SVG to OM 05/29/17 (7) Essential hypertension Status: Chronic (8) JUAN (obstructive sleep apnea) Status: Chronic History of Present Illness Date of Admission: 02/09/18 Chief Complaint: Shortness of breath, abdominal pain. The patient is a 72 y/o F w/ PMHx: HTN, HLD, Hx NSTEMI, OAB, CAD s/p CABG (ACHARYA to LAD and SVG to OM 05/29/17) w/ chronic R sided rib discomfort, Ischemic Mediated Cardiomyopathy, CHF Chronic Systolic, Chronic Hypoxic Respiratory Failure following w/ Dr. Francois Pulmonary Medicine who presents to the [facility] ED on 02/09/18 with worsening dyspnea from baseline over the last several days with progressively increasing weakness, noted to require family assist w/ wheelchair to even make it to the ED and currently residing by herself. In the ED work-up included T 98.9, HR 89, BP 134/95, RR 18-->32, 82% on 2L NC-->99% on 2L NC, CBC w/ WBC 7.5, Hgb 13.9, Plts 144 without marked shift, BMP w/ K 3.4, Chl 92, CO2 >45, BUN/Cr 21/0.41, glucose 136, trop 0.047, BNP 146.4, CXR w/ stable opacity at the left lung base which may be due to atelectasis infiltrate and/or effusion, EKG w/ V2-V4 elevations w/ lateral T wave inversions similar to prior. 01/23/18 ECHO w/ moderate segmental systolic dysfunction, EF 35%, mildly enlarged LA, mild diffuse MV thickening, mild focal MV calcification, bileaflet, trivial MV insufficiency, mild TV insufficiency, mild diffuse AV thickening, trivial PV insufficiency, RVSP 32 mmHg, evidence of diastolic dysfunction. In the ED patient administered duoneb and IV lasix for possible mild overload although ED physician suspected moreso atelectasis. ABG obtained and notable PCO2 in the 90s following transition from ED to floor. Past Medical History Past Medical History (Chronic Problems): Chronic Problems (Last Updated 01/30/18 @ 11:45 by Kami Tucker) JUAN (obstructive sleep apnea) (Chronic) Ischemic cardiomyopathy (Chronic) Chronic systolic congestive heart failure (Chronic) Atherosclerotic heart disease of hopi coronary artery without angina pectoris (Chronic) CABG x2- ACHARYA to LAD and SVG to OM 05/29/17 S/P CABG (coronary artery bypass graft) (Chronic ~05/29/17) CABG x2- ACHARYA to LAD and SVG to OM 05/29/17 Essential hypertension (Chronic) Medical History: Medical History (Last Updated 01/30/18 @ 11:45 by Kami Tucker) Ischemic cardiomyopathy (Chronic) I25.5 Chronic systolic congestive heart failure (Chronic) I50.22 Atherosclerotic heart disease of hopi coronary artery without angina pectoris (Chronic) I25.10 CABG x2- ACHARYA to LAD and SVG to OM 05/29/17 Essential hypertension (Chronic) I10 NSTEMI (non-ST elevated myocardial infarction) (Acute) I21.4 History of basal cell carcinoma Z85.828 right calf and lower back Respiratory failure J96.90 Gallbladder disease K82.9 OAB (overactive bladder) N32.81 Spinal stenosis M48.00 Pleural effusion, bilateral J90 Allergies homatropine Allergy (Verified 02/09/18 17:21) Hives carisoprodol [From Soma] Adverse Reaction (Verified 02/09/18 17:21) DIZZY escitalopram Adverse Reaction (Verified 02/09/18 17:25) Other hydrocodone Adverse Reaction (Verified 02/09/18 17:21) DIZZY metronidazole Adverse Reaction (Verified 02/09/18 17:21) DIZZY pregabalin [From Lyrica] Adverse Reaction (Verified 02/09/18 17:21) MUSCLE ACHES propoxyphene [From Darvon] Adverse Reaction (Verified 02/09/18 17:21) DIZZY Home Medications: Ambulatory Orders Medication Instructions Recorded Atorvastatin Calcium [Lipitor] 40 mg PO QHS 11/12/17 Carvedilol [Coreg (Beta Ron)] 3.125 mg PO BID 11/12/17 Furosemide [Lasix] 20 mg PO DAILY 11/12/17 Oxybutynin [Ditropan] 5 mg PO TID 11/12/17 Aspirin [Aspirin, Baby] 81 mg PO DAILY@0800 #30 tab.chew 11/13/17 Lisinopril [Zestril] 5 mg PO DAILY #30 tab 11/13/17 famotidine 20 mg tablet 20 mg PO QDAY PRN 11/16/17 Calcium Carbonate [Calcium] 500 mg PO DAILY 01/04/18 Psyllium Husk [Metamucil] 0.4 gm PO DAILY 01/04/18 Priddy-3 Fatty Acids [Fish Oil] 500 mg PO DAILY 02/09/18 Surgical History: Surgical History (Last Reviewed 12/29/17 @ 13:45 by Kami Tucker) S/P CABG (coronary artery bypass graft) (Chronic) Onset Date: ~05/29/17 Z95.1 CABG x2- ACHARYA to LAD and SVG to OM 05/29/17 History of tonsillectomy Z98.890, Z90.89 History of back surgery Z98.890 History of thoracentesis Z98.890 Surgical History: - - CABG x 2, bilateral ring trigger finger intervention, herniated lumbar disc surgery, tonsillectomy. Psychiatric History: No pertinent psych hx [employer]ING ENG[employer]ER History: No pertinent [employer]ING [employer]ER history Lives: Alone Smoking Status: Never smoker Tobacco Use: Non-smoker Alcohol: None Drugs: None - *Family History Maternal Family History: Family History (Last Reviewed 12/29/17 @ 13:45 by Kami Tucker) Father Heart disease Hypertension History Items: - - Noted eye disease specifically corneal disease. Paternal Family History: Family History (Last Reviewed 12/29/17 @ 13:45 by Kami Tucker) Father Heart disease Hypertension History Items: Heart Disease, Hypertension Review of Systems Constitutional: Reports: Malaise, Weakness, Fatigue. Denies: Chills, Fever, Weight Change HEENT: Reports: - - Bilateral eye discharge and irritation.. Denies: Head Aches, Sinus Congestion, Sinus Drainage Cardiovascular: Denies: Chest Pain, Palpitations Respiratory: Reports: Shortness of Breath, Shortness of breath at rest, Shortness of breath upon exertion. Denies: Cough, Sputum production Gastrointestinal: Denies: Abdominal Pain, Nausea, Vomiting Genitourinary: Denies: Dysuria Musculoskeletal: Reports: Back Pain. Denies: Joint Pain, Joint Tenderness Skin: Denies: Rash, Wounds Neurological: Denies: Numbness, Tingling, Focal weakness Psychiatric: Denies: Anxiety, Depression, Homicidal Ideations, Suicidal Ideations Hematologic/ Lymphatic: Denies: Easy Bruising, Easy Bleeding VTE Information - Inpt Only VTE Present on Admission: No VTE Mechan Device Prophylaxis: SCD's VTE Pharm Prophylaxis ordered?: Yes Patient Problems: Active and Suspected Problems (Last Updated 01/30/18 @ 11:45 by Kami Tucker) Acute respiratory failure with hypoxia and hypercapnia (Acute) Elevation of cardiac enzymes (Acute) Subjective: Seated upright in the ED bed, fatigued appearance, notes minimal improvement with aerosols ministrations. Objective: Physical Examination: General: awake, alert, oriented x 3 and cooperative, seated upright in the ED bed in no apparent distress, markedly fatigued appearance. Skin: normal color, turgor, no icterus, cyanosis. HEENT: AT/NC, EOMI, PERRLA, MMM, no carotid bruits or JVD noted,, bilateral eye scleral mild injection and discharge noted bilaterally. Lungs: Severely diffusely diminished, greater bilateral bases, mild effort, occasional distant wheezes noted, no rales. Heart: regular rate and rhythm; no gallop, rub audible. Abdomen: soft, NTTP, ND, normal BS, no HSM. Extremities: no cyanosis, clubbing, or edema. Neurological: patient awake, alert, oriented x 3; cognitive function intact; pupils equally reactive to light and accomodation; cranial nerves II-XII grossly normal, moving all 4 extremities, no focal deficits, strength severely globally decreased secondary to acute presentation. Psychiatric: affect appears fatigued, no acute evidence of depressive or anxiety feelings. - Physical Exam Vital Signs Temp Pulse Resp BP Pulse Ox 98.9 F 89 32 H 149/92 H 99 02/09/18 17:22 02/09/18 18:52 02/09/18 18:52 02/09/18 18:52 02/09/18 18:52 Oxygen Flow Rate (L/min) 2 Oxygen Delivery Method Nasal Cannula Weight: 108 lb 14.534 oz Body Mass Index (BMI) 21.2 Laboratory Tests Past 24 Hrs 02/09/18 02/09/18 02/09/18 17:35 17:35 17:35 WBC 7.5 RBC 4.03 L Hgb 13.9 Hct 43.2 MCV 107.2 H MCH 34.5 H MCHC 32.2 RDW 13.7 RDW Differential 53.9 H Plt Count 144 L MPV 10.2 Immature Gran % (Auto) 0.100 Neut % (Auto) 76.1 H Lymph % (Auto) 14.8 L [place] % (Auto) 8.1 Eos % (Auto) 0.8 Baso % (Auto) 0.1 Absolute Neuts (auto) 5.7 Absolute Lymphs (auto) 1.11 Total Counted Not Reportable Sodium 140 Potassium 3.4 L Chloride 92 L Carbon Dioxide > 45.0 H* Anion Gap TNP BUN 21 H Creatinine 0.41 L Estim Creat Clear Calc 35.99 Est GFR (MDRD) Af Amer 196 Est GFR (MDRD) Non-Af 162 BUN/Creatinine Ratio 51.3 H Glucose 136 H Calcium 9.4 Troponin I 0.047 H B-Natriuretic Peptide 146.4 H Assessment/Plan All Active Problems (Last Updated 01/30/18 @ 11:45 by Kami Tucker) Acute respiratory failure with hypoxia and hypercapnia (Acute) Elevation of cardiac enzymes (Acute) NSTEMI (non-ST elevated myocardial infarction) (Acute) The patient is a 72 y/o F w/ PMHx: HTN, HLD, Hx NSTEMI, OAB, CAD s/p CABG (ACHARYA to LAD and SVG to OM 05/29/17) w/ chronic R sided rib discomfort, Ischemic Mediated Cardiomyopathy, CHF Chronic Systolic, Chronic Hypoxic Respiratory Failure following w/ Dr. Francois Pulmonary Medicine who presents to the [facility] ED on 02/09/18 with worsening dyspnea from baseline over the last several days with progressively increasing weakness, noted to require family assist w/ wheelchair to even make it to the ED and currently residing by herself. (1) Acute on Chronic Hypoxic and Hypercarbic Respiratory Failure: Unclear Etiology, following w/ Dr. Francois, worsening status from baseline, CBC w/ WBC 7.5, Hgb 13.9, Plts 144 without marked shift, BMP w/ K 3.4, Chl 92, CO2 >45, BUN/Cr 21/0.41, glucose 136, trop 0.047, BNP 146.4, CXR w/ stable opacity at the left lung base which may be due to atelectasis infiltrate and/or effusion, EKG w/ V2-V4 elevations w/ lateral T wave inversions similar to prior. Will admit to PCU, , obtained ABG and notable elevation pCO2 w/ placement on BIPAP and transition once improvement to NC oxygen with wean as tolerated to home oxygen supplementation, continue ATC duonebs, PRN albuterol, HOB, IS parameters, obtain sputum cx, obtain respiratory viral panel. Dr. Francois consulted, pending. (2) Indeterminant Cardiac Enzyme: Trop 0.047, BNP 146.4, CXR w/ stable opacity at the left lung base which may be due to atelectasis infiltrate and/or effusion, EKG w/ V2-V4 elevations w/ lateral T wave inversions similar to prior. Will place on a monitored bed to assure no acute myocardial infarction with serial cardiac enzymes and EKGs. ASA, NG, morphine. Cardiology consulted, pending. (3) Hx NSTEMI, CAD, Ischemic Mediated Cardiomyopathy: s/p CABG w/ ACHARYA to LAD and SVG to OM 05/29/17 w/ chronic R sided rib discomfort, maintain on aspirin, statin, Coreg. As noted trending cardiac enzymes secondary to indeterminate cardiac enzymes although has been more elevated prior. (4) CHF Chronic Systolic: Given IV lasix x 1 in the ED, low suspicion per ED physician for exacerbation, trop 0.047, BNP 146.4, CXR w/ stable opacity at the left lung base which may be due to atelectasis infiltrate and/or effusion, EKG w/ V2-V4 elevations w/ lateral T wave inversions similar to prior. 01/23/18 ECHO w/ moderate segmental systolic dysfunction, EF 35%, mildly enlarged LA, mild diffuse MV thickening, mild focal MV calcification, bileaflet, trivial MV insufficiency, mild TV insufficiency, mild diffuse AV thickening, trivial PV insufficiency, RVSP 32 mmHg, evidence of diastolic dysfunction. Will repeat ECHO, continue home regimen aspirin, statin, Coreg, Lasix, lisinopril regimen. (5) Hypertension: Continue home regimen including Coreg, Lasix, lisinopril, PRN hydralazine. (6) Hyperlipidemia: Continue home statin regimen. AM FLP. (7) Chronic Hypoxic Respiratory Failure following w/ Dr. Francois Pulmonary Medicine (8) JUAN: Will place on BIPAP given ABG as noted. (9) Acute bilateral conjunctivitis: Notable discharge and mild scleral icterus, ongoing for several weeks intermittently she notes, start erythromycin ointment bilaterally, supposed to have upcoming eye surgery which will need to be deferred until infection cleared. (10) DVT Prophylaxis: SCDs, lovenox. (11) CODE status: Discussed CODE status at length including difference between FULL code, DNR-CCA and DNR-CC status. Following discussions about the differences in these status, requested FULL CODE status. Advanced Care Planning Face to Face Time: 20 minutes. Code Visit Inpatient E&M: 59598 Init Hosp L3 Procedures: 75846 Advncd Care Plan 30 Min
--- NOTE | 2018-02-09 19:39 | HP.PCM_ITS ---
Problem List (1) Elevation of cardiac enzymes Status: Acute (2) Acute respiratory failure with hypoxia and hypercapnia Status: Acute (3) Ischemic cardiomyopathy Status: Chronic (4) Chronic systolic congestive heart failure Status: Chronic (5) Atherosclerotic heart disease of [place] coronary artery without angina pectoris Status: Chronic Qualifiers: [place] vs. transplanted heart: unspecified whether [place] or transplanted heart Qualified Code(s): I25.10 - Atherosclerotic heart disease of [place] coronary artery without angina pectoris Comment: CABG x2- ACHARYA to LAD and SVG to OM 05/29/17 (6) S/P CABG (coronary artery bypass graft) Status: Chronic Comment: CABG x2- ACHARYA to LAD and SVG to OM 05/29/17 (7) Essential hypertension Status: Chronic (8) JUAN (obstructive sleep apnea) Status: Chronic History of Present Illness Date of Admission: 02/09/18 Chief Complaint: Shortness of breath, abdominal pain. The patient is a 72 y/o F w/ PMHx: HTN, HLD, Hx NSTEMI, OAB, CAD s/p CABG (ACHARYA to LAD and SVG to OM 05/29/17) w/ chronic R sided rib discomfort, Ischemic Mediated Cardiomyopathy, CHF Chronic Systolic, Chronic Hypoxic Respiratory Failure following w/ Dr. Farncois Pulmonary Medicine who presents to the [facility] ED on 02/09/18 with worsening dyspnea from baseline over the last several days with progressively increasing weakness, noted to require family assist w/ wheelchair to even make it to the ED and currently residing by herself. In the ED work-up included T 98.9, HR 89, BP 134/95, RR 18-->32, 82% on 2L NC-->99% on 2L NC, CBC w/ WBC 7.5, Hgb 13.9, Plts 144 without marked shift, BMP w/ K 3.4, Chl 92, CO2 > 45, BUN/Cr 21/0.41, glucose 136, trop 0.047, BNP 146.4, CXR w/ stable opacity at the left lung base which may be due to atelectasis infiltrate and/or effusion , EKG w/ V2-V4 elevations w/ lateral T wave inversions similar to prior. ECHO w/ moderate segmental systolic dysfunction, EF 35%, mildly enlarged LA, mild diffuse MV thickening, mild focal MV calcification, bileaflet, trivial MV insufficiency, mild TV insufficiency, mild diffuse AV thickening, trivial PV insufficiency, RVSP 32 mmHg, evidence of diastolic dysfunction. In the ED patient administered duoneb and IV lasix for possible mild overload although ED physician suspected moreso atelectasis. ABG obtained and notable PCO2 in the 90s following transition from ED to floor. Past Medical History Past Medical History (Chronic Problems): Chronic Problems (Last Updated 01/30/18 @ 11:45 by Kami Tucker) JUAN (obstructive sleep apnea) (Chronic) Ischemic cardiomyopathy (Chronic) Chronic systolic congestive heart failure (Chronic) Atherosclerotic heart disease of [place] coronary artery without angina pectoris (Chronic) CABG x2- ACHARYA to LAD and SVG to OM 05/29/17 S/P CABG (coronary artery bypass graft) (Chronic ~05/29/17) CABG x2- ACHARYA to LAD and SVG to OM 05/29/17 Essential hypertension (Chronic) Medical History: Medical History (Last Updated 01/30/18 @ 11:45 by Kami Tucker) Ischemic cardiomyopathy (Chronic) I25.5 Chronic systolic congestive heart failure (Chronic) I50.22 Atherosclerotic heart disease of [place] coronary artery without angina pectoris (Chronic) I25.10 CABG x2- ACHARYA to LAD and SVG to OM 05/29/17 Essential hypertension (Chronic) I10 NSTEMI (non-ST elevated myocardial infarction) (Acute) I21.4 History of basal cell carcinoma Z85.828 right calf and lower back Respiratory failure J96.90 Gallbladder disease K82.9 OAB (overactive bladder) N32.81 Spinal stenosis M48.00 Pleural effusion, bilateral J90 Allergies homatropine Allergy (Verified 02/09/18 17:21) Hives carisoprodol [From Soma] Adverse Reaction (Verified 02/09/18 17:21) DIZZY escitalopram Adverse Reaction (Verified 02/09/18 17:25) Other hydrocodone Adverse Reaction (Verified 02/09/18 17:21) DIZZY metronidazole Adverse Reaction (Verified 02/09/18 17:21) DIZZY pregabalin [From Lyrica] Adverse Reaction (Verified 02/09/18 17:21) MUSCLE ACHES propoxyphene [From Darvon] Adverse Reaction (Verified 02/09/18 17:21) DIZZY Home Medications: Ambulatory Orders Medication Instructions Recorded Atorvastatin Calcium [Lipitor] 40 mg PO QHS 11/12/17 Carvedilol [Coreg (Beta Ron)] 3.125 mg PO BID 11/12/17 Furosemide [Lasix] 20 mg PO DAILY 11/12/17 Oxybutynin [Ditropan] 5 mg PO TID 11/12/17 Aspirin [Aspirin, Baby] 81 mg PO DAILY@0800 #30 tab.chew 11/13/17 Lisinopril [Zestril] 5 mg PO DAILY #30 tab 11/13/17 famotidine 20 mg tablet 20 mg PO QDAY PRN 11/16/17 Calcium Carbonate [Calcium] 500 mg PO DAILY 01/04/18 Psyllium Husk [Metamucil] 0.4 gm PO DAILY 01/04/18 [place]-3 Fatty Acids [Fish Oil] 500 mg PO DAILY 02/09/18 Surgical History: Surgical History (Last Reviewed 12/29/17 @ 13:45 by Kami Tucker) S/P CABG (coronary artery bypass graft) (Chronic) Onset Date: ~05/29/17 Z95.1 CABG x2- ACHARYA to LAD and SVG to OM 05/29/17 History of tonsillectomy Z98.890, Z90.89 History of back surgery Z98.890 History of thoracentesis Z98.890 Surgical History: - - CABG x 2, bilateral ring trigger finger intervention, herniated lumbar disc surgery, tonsillectomy. Psychiatric History: No pertinent psych hx [employer] History: No pertinent [employer] history Lives: Alone Smoking Status: Never smoker Tobacco Use: Non-smoker Alcohol: None Drugs: None - *Family History Maternal Family History: Family History (Last Reviewed 12/29/17 @ 13:45 by Kami Tucker) Father Heart disease Hypertension History Items: - - Noted eye disease specifically corneal disease. Paternal Family History: Family History (Last Reviewed 12/29/17 @ 13:45 by Kami Tucker) Father Heart disease Hypertension History Items: Heart Disease, Hypertension Review of Systems Constitutional: Reports: Malaise, Weakness, Fatigue. Denies: Chills, Fever, Weight Change HEENT: Reports: - - Bilateral eye discharge and irritation.. Denies: Head Aches , Sinus Congestion, Sinus Drainage Cardiovascular: Denies: Chest Pain, Palpitations Respiratory: Reports: Shortness of Breath, Shortness of breath at rest, Shortness of breath upon exertion. Denies: Cough, Sputum production Gastrointestinal: Denies: Abdominal Pain, Nausea, Vomiting Genitourinary: Denies: Dysuria Musculoskeletal: Reports: Back Pain. Denies: Joint Pain, Joint Tenderness Skin: Denies: Rash, Wounds Neurological: Denies: Numbness, Tingling, Focal weakness Psychiatric: Denies: Anxiety, Depression, Homicidal Ideations, Suicidal Ideations Hematologic/ Lymphatic: Denies: Easy Bruising, Easy Bleeding VTE Information - Inpt Only VTE Present on Admission: No VTE Mechan Device Prophylaxis: SCD's VTE Pharm Prophylaxis ordered?: Yes Patient Problems: Active and Suspected Problems (Last Updated 01/30/18 @ 11:45 by Kami Tucker ) Acute respiratory failure with hypoxia and hypercapnia (Acute) Elevation of cardiac enzymes (Acute) Subjective: Seated upright in the ED bed, fatigued appearance, notes minimal improvement with aerosols ministrations. Objective: Physical Examination: General: awake, alert, oriented x 3 and cooperative, seated upright in the ED bed in no apparent distress, markedly fatigued appearance. Skin: normal color, turgor, no icterus, cyanosis. HEENT: AT/NC, EOMI, PERRLA, MMM, no carotid bruits or JVD noted,, bilateral eye scleral mild injection and discharge noted bilaterally. Lungs: Severely diffusely diminished, greater bilateral bases, mild effort, occasional distant wheezes noted, no rales. Heart: regular rate and rhythm; no gallop, rub audible. Abdomen: soft, NTTP, ND, normal BS, no HSM. Extremities: no cyanosis, clubbing, or edema. Neurological: patient awake, alert, oriented x 3; cognitive function intact; pupils equally reactive to light and accomodation; cranial nerves II-XII grossly normal, moving all 4 extremities, no focal deficits, strength severely globally decreased secondary to acute presentation. Psychiatric: affect appears fatigued, no acute evidence of depressive or anxiety feelings. - Physical Exam Vital Signs Temp Pulse Resp BP Pulse Ox 98.9 F 89 32 H 149/92 H 99 02/09/18 17:22 02/09/18 18:52 02/09/18 18:52 02/09/18 18:52 02/09/18 18:52 Oxygen Flow Rate (L/min) 2 Oxygen Delivery Method Nasal Cannula Weight: 108 lb 14.534 oz Body Mass Index (BMI) 21.2 Laboratory Tests Past 24 Hrs 02/09/18 02/09/18 02/09/18 17:35 17:35 17:35 WBC 7.5 RBC 4.03 L Hgb 13.9 Hct 43.2 MCV 107.2 H MCH 34.5 H MCHC 32.2 RDW 13.7 RDW Differential 53.9 H Plt Count 144 L MPV 10.2 Immature Gran % (Auto) 0.100 Neut % (Auto) 76.1 H Lymph % (Auto) 14.8 L [place] % (Auto) 8.1 Eos % (Auto) 0.8 Baso % (Auto) 0.1 Absolute Neuts (auto) 5.7 Absolute Lymphs (auto) 1.11 Total Counted Not Reportable Sodium 140 Potassium 3.4 L Chloride 92 L Carbon Dioxide > 45.0 H* Anion Gap TNP BUN 21 H Creatinine 0.41 L Estim Creat Clear Calc 35.99 Est GFR (MDRD) Af Amer 196 Est GFR (MDRD) Non-Af 162 BUN/Creatinine Ratio 51.3 H Glucose 136 H Calcium 9.4 Troponin I 0.047 H B-Natriuretic Peptide 146.4 H Assessment/Plan All Active Problems (Last Updated 01/30/18 @ 11:45 by Kami Tucker) Acute respiratory failure with hypoxia and hypercapnia (Acute) Elevation of cardiac enzymes (Acute) NSTEMI (non-ST elevated myocardial infarction) (Acute) The patient is a 72 y/o F w/ PMHx: HTN, HLD, Hx NSTEMI, OAB, CAD s/p CABG (ACHARYA to LAD and SVG to OM 05/29/17) w/ chronic R sided rib discomfort, Ischemic Mediated Cardiomyopathy, CHF Chronic Systolic, Chronic Hypoxic Respiratory Failure following w/ Dr. Francois Pulmonary Medicine who presents to the [facility] ED on 02/09/18 with worsening dyspnea from baseline over the last several days with progressively increasing weakness, noted to require family assist w/ wheelchair to even make it to the ED and currently residing by herself. (1) Acute on Chronic Hypoxic and Hypercarbic Respiratory Failure: Unclear Etiology, following w/ Dr. Francois, worsening status from baseline, CBC w/ WBC 7.5, Hgb 13.9, Plts 144 without marked shift, BMP w/ K 3.4, Chl 92, CO2 >45, BUN /Cr 21/0.41, glucose 136, trop 0.047, BNP 146.4, CXR w/ stable opacity at the left lung base which may be due to atelectasis infiltrate and/or effusion, EKG w / V2-V4 elevations w/ lateral T wave inversions similar to prior. Will admit to PCU, , obtained ABG and notable elevation pCO2 w/ placement on BIPAP and transition once improvement to NC oxygen with wean as tolerated to home oxygen supplementation, continue ATC duonebs, PRN albuterol, HOB, IS parameters, obtain sputum cx, obtain respiratory viral panel. Dr. Francois consulted, pending. (2) Indeterminant Cardiac Enzyme: Trop 0.047, BNP 146.4, CXR w/ stable opacity at the left lung base which may be due to atelectasis infiltrate and/or effusion , EKG w/ V2-V4 elevations w/ lateral T wave inversions similar to prior. Will place on a monitored bed to assure no acute myocardial infarction with serial cardiac enzymes and EKGs. ASA, NG, morphine. Cardiology consulted, pending. (3) Hx NSTEMI, CAD, Ischemic Mediated Cardiomyopathy: s/p CABG w/ ACHARYA to LAD and SVG to OM 05/29/17 w/ chronic R sided rib discomfort, maintain on aspirin, statin, Coreg. As noted trending cardiac enzymes secondary to indeterminate cardiac enzymes although has been more elevated prior. (4) CHF Chronic Systolic: Given IV lasix x 1 in the ED, low suspicion per ED physician for exacerbation, trop 0.047, BNP 146.4, CXR w/ stable opacity at the left lung base which may be due to atelectasis infiltrate and/or effusion, EKG w / V2-V4 elevations w/ lateral T wave inversions similar to prior. 01/23/18 ECHO w / moderate segmental systolic dysfunction, EF 35%, mildly enlarged LA, mild diffuse MV thickening, mild focal MV calcification, bileaflet, trivial MV insufficiency, mild TV insufficiency, mild diffuse AV thickening, trivial PV insufficiency, RVSP 32 mmHg, evidence of diastolic dysfunction. Will repeat ECHO , continue home regimen aspirin, statin, Coreg, Lasix, lisinopril regimen. (5) Hypertension: Continue home regimen including Coreg, Lasix, lisinopril, PRN hydralazine. (6) Hyperlipidemia: Continue home statin regimen. AM FLP. (7) Chronic Hypoxic Respiratory Failure following w/ Dr. Francois Pulmonary Medicine (8) JUAN: Will place on BIPAP given ABG as noted. (9) Acute bilateral conjunctivitis: Notable discharge and mild scleral icterus, ongoing for several weeks intermittently she notes, start erythromycin ointment bilaterally, supposed to have upcoming eye surgery which will need to be deferred until infection cleared. (10) DVT Prophylaxis: SCDs, lovenox. (11) CODE status: Discussed CODE status at length including difference between FULL code, DNR-CCA and DNR-CC status. Following discussions about the differences in these status, requested FULL CODE status. Advanced Care Planning Face to Face Time: 20 minutes. Code Visit Inpatient E&M: 29633 Init Hosp L3 Procedures: 30301 Advncd Care Plan 30 Min
--- NOTE | 2018-02-09 19:51 | ED.VISSUMM ---
- ER Visit Summary Date of Service: 02/09/18 Chief Complaint: Shortness of breath History of Present Illness: The patient is a [address] Francois, Dr. Marquez, and Dr. Chew. She reports that she has chronic shortness of breath is worsened over the past few days. States it is moderate currently. Is worsened with walking or laying flat, but she states it is not severe. She reports that she sleeps propped up since having pneumonia last fall. She does not take daily weights. She complains of chronic ankle swelling that is unchanged. She is on 20 mg's of Lasix a day. Friends report that they brought the patient to the emergency department today because she was so weak that she could not walk to the bathroom. They had to bring her in in a wheelchair. The patient denies any other complaints. No fever, chills, cough, chest pain. Physical Examination: Vitals: 98.9, 134/95, 89, 18, 100% on 2 L nasal cannula which is her home O2.. General: Well-nourished and well-developed. Head: Normocephalic atraumatic. Neck: Supple, no lymphadenopathy. No JVD. Nontender. Cardiovascular: Regular rate and rhythm. 2 out of 6 systolic murmur. Respiratory: No respiratory distress. Clear to auscultation bilaterally. Very poor air movement. Abdominal: Soft, nontender, nondistended, normal bowel sounds. No guarding, rebound, or peritoneal signs. Back: Nontender. Extremities: Nontender, 2+ pitting edema of her lower extremities bilaterally. Skin: Normal color, no rash. Neurologic: Alert and oriented ?3. Cranial nerves II through XII are intact. Normal strength and sensation. Psych: Normal affect. Test Results: EKG is sinus at [address] elevation in leads V2 to V4 and T-wave inversions laterally. This is unchanged from January 04, 2018. Chest x-ray shows increased markings in the left lower lung which I feel or atelectasis. CBC is more for platelets 144, 7 neutrophils 76, lymphocytes 15. Chem-7 is more frequent potassium 3.4, chloride 92, CO2 of greater than 45, glucose 136, BUN of 21, creatinine 0.41. Her CO2 was 44 January 04. Plan is 0.047. Her troponins range between 0.03 and 0.05 and 2018. PT MAINTENANCE TECHNICIAN 3RD SHIFT is 146.4. Emergency Department Course and Treatment: Initially patient was given albuterol Atrovent aerosols. She reports that she got no relief from this. She was given 40 mg of Lasix IV. Treatment Plan: Patient was discussed with Dr. Mullins. She will be admitted to the hospital for further evaluation and treatment. Disposition: Admitted in stable condition. Impression: 1. Dyspnea, uncertain cause. 2. Weakness, generalized. 3. Indeterminate troponin. This note was generated with [employer] dictation software. It may contain incorrect words, spelling, and punctuation that were not noted in review of the chart prior to signing ED Disposition - Plan for ED Patient: Chief Complaint: Shortness of Breath Referrals: Kulwinder Chew MD [Primary Care Provider] -
[2018-02-09] MEDS: Furosemide 40 MG/4 ML Vial IV (20:02)
--- NOTE | 2018-02-09 20:12 | DT_ITS ---
This patient was seen during an EMR downtime February 13, 2018 - February 20, 2018. This patient may have a combination of paper and electronic documentation or all paper documentation. All documentation is viewable within the e-chart portion of [facility] for each patient visit.
[2018-02-09 21:54] LABS: Magnesium 2.2 mg/dL (1.6-2.6)
[2018-02-10] VITALS (19 sets, daily range): BP systolic 97–131; BP diastolic 54–70; PULSE 73–101; RESP 12–26; TEMP 36.9–37.1; O2SAT 94–100
[2018-02-10] MEDS: Carvedilol 3.125 MG TABLET PO ×3 (00:26→21:34)
[2018-02-10] MEDS: Atorvastatin Calcium 40 MG Tablet PO ×2 (00:26→21:34)
[2018-02-10] MEDS: Erythromycin Base 1 OPTH.TUBE 1 APPLIC EACH EYE ×5 (00:26→21:34)
[2018-02-10] MEDS: Oxybutynin 5 MG Tablet PO ×3 (00:26→21:34)
[2018-02-10] MEDS: Famotidine 20 MG Tablet PO ×3 (00:27→21:34)
[2018-02-10] MEDS: Ipratropium/Albuterol Sulfate 3 ML AMPUL.NEB INHALATION ×6 (02:34→23:33)
[2018-02-10 05:04] LABS: Hematocrit 41.8 % (37-47); Hemoglobin 12.8 g/dl (12.0-15.0); Mean Corp Hgb Conc 30.6 g/gl (32-36); Mean Corpuscular Hgb 33.2 pg (27.0-32.0); Mean Corpuscular Volume 108.6 fL (81-99); Mean Platelet Vol. 10.4 fl (6.2-12.0); Platelet Count 145 K/mm3 (150-450); RBC Distribution Width CV 13.6 % (11.6-14.6); RBC Distribution Width SD 53.2 fl (35.1-43.9); Red Blood Count 3.85 M/mm3 (4.2-5.4); White Blood Count 7.2 K/mm3 (4.4-11.0)
[2018-02-10 05:08] LABS: Scan Indicated on CBC? Y/N NO
[2018-02-10 05:41] LABS: BUN 19 mg/dL (7-18); BUN/Creat Ratio 50.3 RATIO (10-20); Carbon Dioxide > 45.0 mmol/L (21.0-32.0); Chloride 92 mmol/L (98-107); Cholesterol 135 mg/dL (200); Creatinine, Serum 0.38 mg/dL (0.55-1.02); EST Glomerular Filtration Rate 177 mL/min (>60); Est Glom Filt Rate - Afr Amer 214 mL/min (>60); Estimated Creatinine Clearance 35.99 ml/min; Glucose 93 mg/dL (74-106); High Density Lipoprotein 54 mg/dL; Sodium Level 143 mmol/L (136-145); Triglycerides 95 mg/dL; Very Low Density Lipoprotein 19 mg/dL (5-40)
[2018-02-10 06:35] LABS: Allen Test POS; Base Excess > 30 mmol/L (-2 to +2); Bicarbonate 58.3 mmol/L (22-26); Blood Gas Specimen Type ART; O2 Delivery Device Nasal Can; PO2 146 mmHG (75-100); SITE R Radial; SO2 99 % (95-99); Time Given 2205; Total Carbon Dioxide > 50 mmol/L; pCO2 97.6 mmHg (35-45); pH 7.38 (7.35-7.45)
[2018-02-10] MEDS: Aspirin 81 MG TAB.CHEW PO (08:39)
[2018-02-10] MEDS: Furosemide 20 MG Tablet PO (08:40)
[2018-02-10] MEDS: Lisinopril 5 MG Tablet PO (08:40)
--- NOTE | 2018-02-10 08:54 | PCM.CONS.GEN ---
Problem List (1) Acute respiratory failure with hypoxia and hypercapnia Status: Acute (2) Elevation of cardiac enzymes Status: Acute (3) Ischemic cardiomyopathy Status: Chronic (4) Chronic systolic congestive heart failure Status: Chronic (5) S/P CABG (coronary artery bypass graft) Status: Chronic Comment: CABG x2- ACHARYA to LAD and SVG to OM 05/29/17 (6) Essential hypertension Status: Chronic Reason for Consult Date of Consultation: 02/10/18 Reason for Consultation: worsening respiratory failure History of Present Illness: The patient is a 72 year old F with a past medical history as below, presented to the ED on 02/09/18 with complaints of progressive shortness of breath and weakness over the last few days. Patient's friend brought her to the ED in a wheelchair secondary to inability to walk, which has been occurring intermittently at home. She has chronic orthopnea but is able to sleep with 2 pillows in bed. She denies any recent sick contacts, cough, sputum production, hemoptysis, dizziness, or chest discomfort. She denies any nocturia. She does admit to chronic mild lower extremity edema, no worsening. The patient lives home alone in the [facility] at [facility]. She does have good family/friend support. Patient has had persistent breathing issues since having pneumonia last fall and having an extensive and complicated ICU stay at [facility], including myocardial infarction, pleural effusions requiring multiple thoracentesis and pneumothorax requiring chest tube. Patient also had a bronchoscopy secondary to endotracheal mucous plugging leading to left lung collapse. Initial vital signs BP 134/95, pulse 89, RR 18, 90.9?F, and 82% on 2 L of oxygen. Blood work revealed no leukocytosis, hemoglobin of 13.9 with elevated MCV/MCH, platelet 144. Chemistry remarkable for a potassium of 3.4, chloride 92, serum bicarb greater than 45.0, BUN of 21 and creatinine 0.41. Glucose was elevated at 136. Troponin 0 0.050 and peaked at 0.059. BNP mildly elevated at 146. An ABG was obtained on the 2 L of oxygen and revealed a pH of 7.38, PCO2 97.6, PO2 of 146, and base excess greater than 30. It appears the ABG reflects patient's baseline. A plain film chest x-ray showed a stable opacity at the left lung base, likely atelectasis however may be infiltrate and/or effusion. The patient did have a recent echocardiogram on 01/23/18 that showed moderate segmental systolic dysfunction, estimated EF of 35%, mildly enlarged left atrium, mild diffuse mitral valve thickening, mild focal MV calcification, bileaflet. Trivial MVI, mild TVI, mild diffuse AV thickening, trivial PVI, and RVSP estimated at 32 mmHg. There was evidence of diastolic dysfunction. A CTA of the chest was obtained in December 2017 and demonstrated small to moderate left pleural effusion, bibasilar atelectasis, otherwise normal. She was last seen in the pulmonary clinic by Dr. Francois on 02/02/18 at which time pulmonary function tests, pulmonary exercise test, and polysomnogram were ordered. These tests have not yet been completed. Past Medical History Past Medical History (Chronic Problems): Chronic Problems (Last Updated 01/30/18 @ 11:45 by Kami Tucker) JUAN (obstructive sleep apnea) (Chronic) Ischemic cardiomyopathy (Chronic) Chronic systolic congestive heart failure (Chronic) Atherosclerotic heart disease of [place] coronary artery without angina pectoris (Chronic) CABG x2- ACHARYA to LAD and SVG to OM 05/29/17 S/P CABG (coronary artery bypass graft) (Chronic ~05/29/17) CABG x2- ACHARYA to LAD and SVG to OM 05/29/17 Essential hypertension (Chronic) Medical History: Medical History (Last Updated 01/30/18 @ 11:45 by Kami Tucker) Ischemic cardiomyopathy (Chronic) I25.5 Chronic systolic congestive heart failure (Chronic) I50.22 Atherosclerotic heart disease of [place] coronary artery without angina pectoris (Chronic) I25.10 CABG x2- ACHARYA to LAD and SVG to OM 05/29/17 Essential hypertension (Chronic) I10 NSTEMI (non-ST elevated myocardial infarction) (Acute) I21.4 History of basal cell carcinoma Z85.828 right calf and lower back Respiratory failure J96.90 Gallbladder disease K82.9 OAB (overactive bladder) N32.81 Spinal stenosis M48.00 Pleural effusion, bilateral J90 Allergies homatropine Allergy (Verified 02/09/18 17:21) Hives carisoprodol [From Soma] Adverse Reaction (Verified 02/09/18 17:21) DIZZY escitalopram Adverse Reaction (Verified 02/09/18 17:25) Other hydrocodone Adverse Reaction (Verified 02/09/18 17:21) DIZZY metronidazole Adverse Reaction (Verified 02/09/18 17:21) DIZZY pregabalin [From Lyrica] Adverse Reaction (Verified 02/09/18 17:21) MUSCLE ACHES propoxyphene [From Darvon] Adverse Reaction (Verified 02/09/18 17:21) DIZZY Home Medications: Ambulatory Orders Medication Instructions Recorded Atorvastatin Calcium [Lipitor] 40 mg PO QHS 11/12/17 Carvedilol [Coreg (Beta Ron)] 3.125 mg PO BID 11/12/17 Furosemide [Lasix] 20 mg PO DAILY 11/12/17 Oxybutynin [Ditropan] 5 mg PO TID 11/12/17 Aspirin [Aspirin, Baby] 81 mg PO DAILY@0800 #30 tab.chew 11/13/17 Lisinopril [Zestril] 5 mg PO DAILY #30 tab 11/13/17 famotidine 20 mg tablet 20 mg PO QDAY PRN 11/16/17 Calcium Carbonate [Calcium] 500 mg PO DAILY 01/04/18 Psyllium Husk [Metamucil] 0.4 gm PO DAILY 01/04/18 [place]-3 Fatty Acids [Fish Oil] 500 mg PO DAILY 02/09/18 Surgical History: Surgical History (Last Reviewed 12/29/17 @ 13:45 by Kami Tucker) S/P CABG (coronary artery bypass graft) (Chronic) Onset Date: ~05/29/17 Z95.1 CABG x2- ACHARYA to LAD and SVG to OM 05/29/17 History of tonsillectomy Z98.890, Z90.89 History of back surgery Z98.890 History of thoracentesis Z98.890 Surgical History: - - CABG x 2, bilateral ring trigger finger intervention, herniated lumbar disc surgery, tonsillectomy. Psychiatric History: No pertinent psych hx [employer] History: No pertinent [employer] history Lives: Alone Smoking Status: Never smoker Tobacco Use: Non-smoker Alcohol: None Drugs: None - *Family History Maternal Family History: Family History (Last Reviewed 12/29/17 @ 13:45 by Kami Tucker) Father Heart disease Hypertension History Items: - - Noted eye disease specifically corneal disease. Paternal Family History: Family History (Last Reviewed 12/29/17 @ 13:45 by Kami Tucker) Father Heart disease Hypertension History Items: Heart Disease, Hypertension Review of Systems Constitutional: Reports: Weakness, Fatigue - Daytime sleepiness. Denies: Anorexia, Chills, Fever, Night Sweats, Malaise, Weight Change Eyes: Reports: Cataracts, Conjunctivae Inflammation, Drainage - Clear to yellow, right eye, Redness - Right eye injected. Denies: Double vision, Pain HEENT: Denies: Difficulty Hearing, Difficulty Swallowing, Dysphasia, Nasal bleeding, Nasal Congestion, Post Nasal Drip, Sinus Congestion, Sinus Drainage, Sore Throat Cardiovascular: Reports: Edema, Orthopnea. Denies: Chest Pain, Chest Tightness, Heaviness, Light Headedness, Palpitations, Paroxysmal Noc. Dyspnea, Syncope Respiratory: Reports: Shortness of breath upon exertion. Denies: Cough, Hemoptysis, Shortness of breath at rest, Sputum production, Wheezing Gastrointestinal: Denies: Abdominal Pain, Constipation, Diarrhea, Dyspepsia, Hematemesis, Hematochezia, Nausea, Melena, Vomiting Genitourinary: Reports: Incontinence - Stress. Denies: Dysuria, Frequency, Hematuria, Nocturia, Retention Musculoskeletal: Denies: Back Pain, Leg Pain, Muscle pain, Neck Pain Skin: Denies: Rash, Wounds Neurological: Denies: Balance problems, Change in Speech, Confusion, Difficulty swallowing, Focal weakness, Headaches, Numbness, Tingling, Tremor, Seizures Psychiatric: Reports: Anxiety. Denies: Depression, Suicidal Ideations Endocrine: Denies: Change in Body Habitus, Polydipsia, Polyuria Hematologic/ Lymphatic: Reports: Easy Bruising, Hx of blood transfusion. Denies: Adenopathy, Anemia, Easy Bleeding, Hx of blood clot Patient Problems: Active and Suspected Problems (Last Updated 01/30/18 @ 11:45 by Kami Tucker) Acute respiratory failure with hypoxia and hypercapnia (Acute) Elevation of cardiac enzymes (Acute) Subjective: The patient was seen and examined. She is sitting up in the chair in no acute distress, wearing 2 L of oxygen and eating her breakfast. There is no conversational dyspnea. She has no complaints. Objective: Clinical Impression(s) from Imaging Studies Chest X-Ray 02/09/18 17:48 IMPRESSION: Stable opacity at the left lung base which may be due to atelectasis, infiltrate and/or effusion. Electronically Signed: Murali Gonzalez, at 18:54 EDT Tel , Service support , - Physical Exam General: Alert, Oriented x3, Cooperative, No apparent distress, Well developed, Well nourished HEENT: Atraumatic, Normocephalic Oral: Moist Mucosa, No Gingival or Mucosal Lesions/ Ulcerations Neck: Supple, No JVD, No Nodes, Trachea Midline Lungs: No rhonchi, No wheeze, No rales, Diminished Cardiovascular: Regular rate, Regular Rhythm, Normal S1, Normal S2, No murmurs, No rub noted, No Gallop Abdomen: Bowel Sounds Present, Soft, Non Tender, Non-Distended Extremities: No clubbing, No cyanosis, Edema - 1-2+ pitting edema bilat LEs, L>R Skin: No rashes, No breakdown Musculoskeletal: No Tenderness to Palpation of Joints or Extremities, No Muscle Wasting, Arthritic Changes Lymphatic: No Cervical, Supraclavicular, or Inguinal Adenopathy Neurological: Cranial nerves II-XII grossly intact, Neuro grossly intact, Motor Exam 5/5 strength throughout Psych/Mental Status: Alert and oriented to time, place, person, mood and affect Vital Signs Temp Pulse Resp BP Pulse Ox 98.5 F 76 22 H 109/68 95 02/10/18 03:15 02/10/18 05:40 02/10/18 05:40 02/10/18 03:15 02/10/18 05:40 Oxygen Flow Rate (L/min) 2 Oxygen Delivery Method Bi-pap Weight: 114 lb 13.773 oz Body Mass Index (BMI) 22.4 Laboratory Tests Past 24 Hrs 02/09/18 02/09/18 02/09/18 22:05 22:11 22:41 WBC RBC Hgb Hct MCV MCH MCHC RDW RDW Differential Plt Count MPV Specimen Type ART ART Sample Site R RADIAL R Radial pH 7.38 7.38 Bicarbonate Actual 58.3 H 58.3 H POC Total CO2 > 50 > 50 Base Excess > 30 H > 30 H O2 Saturation 99 99 ABG pCO2 97.6 H* 97.6 H* ABG pO2 146 H 146 H Panda Test POS POS O2 Delivery Device NC Nasal Can Liter Flow 2.0 2.0 Vent Mode O2 Blood Gas Notified Whom HOSP MD HOSP MD Blood Gas Notified Time 2204 2204 Sodium Potassium Chloride Carbon Dioxide Anion Gap BUN Creatinine Estim Creat Clear Calc Est GFR (MDRD) Af Amer Est GFR (MDRD) Non-Af BUN/Creatinine Ratio Glucose Calcium Troponin I 0.050 H Triglycerides Cholesterol LDL Cholesterol VLDL Cholesterol HDL Cholesterol 02/10/18 02/10/18 02/10/18 01:07 04:44 04:44 WBC 7.2 RBC 3.85 L Hgb 12.8 Hct 41.8 MCV 108.6 H MCH 33.2 H MCHC 30.6 L RDW 13.6 RDW Differential 53.2 H Plt Count 145 L MPV 10.4 Specimen Type Sample Site pH Bicarbonate Actual POC Total CO2 Base Excess O2 Saturation ABG pCO2 ABG pO2 Panda Test O2 Delivery Device Liter Flow Vent Mode Blood Gas Notified Whom Blood Gas Notified Time Sodium 143 Potassium 4.0 Chloride 92 L Carbon Dioxide > 45.0 H* Anion Gap TNP BUN 19 H Creatinine 0.38 L Estim Creat Clear Calc 35.99 Est GFR (MDRD) Af Amer 214 Est GFR (MDRD) Non-Af 177 BUN/Creatinine Ratio 50.3 H Glucose 93 Calcium 9.0 Troponin I 0.059 H Triglycerides 95 Cholesterol 135 LDL Cholesterol 62 VLDL Cholesterol 19 HDL Cholesterol 54 02/10/18 04:44 WBC RBC Hgb Hct MCV MCH MCHC RDW RDW Differential Plt Count MPV Specimen Type Sample Site pH Bicarbonate Actual POC Total CO2 Base Excess O2 Saturation ABG pCO2 ABG pO2 Panda Test O2 Delivery Device Liter Flow Vent Mode Blood Gas Notified Whom Blood Gas Notified Time Sodium Potassium Chloride Carbon Dioxide Anion Gap BUN Creatinine Estim Creat Clear Calc Est GFR (MDRD) Af Amer Est GFR (MDRD) Non-Af BUN/Creatinine Ratio Glucose Calcium Troponin I 0.051 H Triglycerides Cholesterol LDL Cholesterol VLDL Cholesterol HDL Cholesterol Assessment/Plan All Active Problems (Last Updated 01/30/18 @ 11:45 by Kami Tucker) Acute respiratory failure with hypoxia and hypercapnia (Acute) Elevation of cardiac enzymes (Acute) NSTEMI (non-ST elevated myocardial infarction) (Acute) RECOMMENDATIONS 1. Wean oxygen supplementation to keep saturations 88-92%, to prevent paradoxical CO2 retention. 2. BiPAP with any sleep and PRN during the day 3. Encourage incentive spirometer 4. Increase activity as tolerated, PT consult 5. Continue bronchodilators, no indication for steroids or antibiotics at this time 6. Continue home dose of Lasix 7. Ambulatory pulse ox prior to discharge 8. Follow-up and outpatient testing as previously scheduled IMPRESSIONS 1. Acute on chronic hypoxic and hypercarbic respiratory failure Chest x-ray with likely atelectasis which is chronic. Suspect element of cor pulmonale secondary to noncompliance with home oxygen, patient admits to not always wearing her 2 L with ambulation. She is a chronic CO2 retainer with her bicarb typically in the 90s. BNP was essentially normal. She did have a mild elevation in her troponins, which is likely demand ischemia secondary to hypoxia. She appears to be back to her baseline respiratory status at this time and is on her current home dose of Lasix therapy. Respiratory panel was negative. She has no cough or sputum production. Recommend obtaining pulmonary function tests, walking oximetry, and polysomnogram as an outpatient as previously planned. Patient is scheduled for follow-up in the pulmonary clinic after testing. Recommend continuing 2 L of oxygen at rest, may require higher flow with exertion. Obtain ambulatory pulse ox prior to discharge. Patient would benefit from placement in a prison facility, as she is no longer able to care for herself at home. 2. Suspected obstructive sleep apnea Patient does have excessive daytime sleepiness. She is likely hypoxic at night. Obtain PSG as previously planned. Patient will require noninvasive positive pressure therapy, whether that be PAP or Trilogy. Await studies as outpatient. If patient is placed in a skilled facility, BiPAP can be initiated there as well. 3. History of ischemic cardiomyopathy/chronic CHF/CABG/hypertension/NSTEMI/weakness Complicates care, management, recovery, and prognosis. Recommend evaluation for usp placement, patient is in agreement during our discussion. It appeared to be in an acute CHF exacerbation at this time. Continue home medications as indicated per hospitalist recommendations. Thank you for the opportunity to participate in this patient's care, please do not hesitate to contact us with any further questions or concerns. This note was generated with [employer] software. It may contain incorrect words, spelling, and punctuation that were not noted in checking the note before signing.
[2018-02-10] MEDS: Enoxaparin 40 MG/0.4 ML Syringe SC (09:16)
--- NOTE | 2018-02-10 09:54 | CASEMGMT ---
Patient Access told SW patient has [employer] and would like it canceled until she returns home. SW called [employer] and spoke with Liat letting her know patient is in the hospital so she would like to cancel her meals. SUSAN told them we will let them know when she is discharged. Carie WEEKS
--- NOTE | 2018-02-10 11:02 | PCM.CONS.C ---
Problem List (1) Elevation of cardiac enzymes Status: Acute (2) Ischemic cardiomyopathy Status: Chronic (3) Chronic systolic congestive heart failure Status: Chronic (4) Atherosclerotic heart disease of [place] coronary artery without angina pectoris Status: Chronic Qualifiers: [place] vs. transplanted heart: unspecified whether shawnee or transplanted heart Qualified Code(s): I25.10 - Atherosclerotic heart disease of [place] coronary artery without angina pectoris Comment: CABG x2- ACHARYA to LAD and SVG to OM 05/29/17 (5) S/P CABG (coronary artery bypass graft) Status: Chronic Comment: CABG x2- ACHARYA to LAD and SVG to OM 05/29/17 (6) Essential hypertension Status: Chronic (7) NSTEMI (non-ST elevated myocardial infarction) Status: Acute Reason for Consult Date of Consultation: 02/10/18 Reason for Consultation: Ischemic heart myopathy, coronary artery disease, non-STEMI, shortness of breath, LV dysfunction, CO2 retention. History of Present Illness: The patient is a 72 year old F, patient of Dr. Gilmore, with a history of cardiomyopathy with an EF of 35%, hypertension, hypercholesterolemia, severe COPD, chronic CO2 retention, who was brought to the emergency room by concerned friend on 02/09/18 for shortness of breath and weakness. She was found to have a markedly elevated PCO2 on ABG, and underwent BiPAP therapy. She is remained on BiPAP overnight and was recently taken off this morning to nasal cannula. In addition she reports she had bypass surgery in May 2017 I believe at [facility] but has not had a repeat catheterization since that time. At that time she received an urgent coronary bypass grafting with a free ACHARYA to the LAD and a reverse saphenous vein graft to the OM. Patient's care was complicated by ventilator dependent respiratory failure after returning from a assisted. She underwent tracheostomy on 06/20/17 which was subsequently reversed at some point going forward. Patient's most recent echocardiogram was on 01/23/18 which showed an EF of 35%, trivial MR, trivial TR, an RVSP of 32 mmHg. Currently the patient is sitting in a chair, with moderate respiratory distress, some air hunger, and conversational dyspnea. She denies any chest pain. Chest x-ray on admission showed no definitive or vascular redistribution. EKG showed normal sinus rhythm with old septal wall myocardial infarction and old lateral wall myocardial infarction as well. No acute changes. Peak troponin is 0.05. [] Past Medical History Allergies/Adverse Reactions: Allergies homatropine Allergy (Verified 02/09/18 17:21) Hives carisoprodol [From Soma] Adverse Reaction (Verified 02/09/18 17:21) DIZZY escitalopram Adverse Reaction (Verified 02/09/18 17:25) Other hydrocodone Adverse Reaction (Verified 02/09/18 17:21) DIZZY metronidazole Adverse Reaction (Verified 02/09/18 17:21) DIZZY pregabalin [From Lyrica] Adverse Reaction (Verified 02/09/18 17:21) MUSCLE ACHES propoxyphene [From Darvon] Adverse Reaction (Verified 02/09/18 17:21) DIZZY Home Medications: Ambulatory Orders Medication Instructions Recorded Atorvastatin Calcium [Lipitor] 40 mg PO QHS 11/12/17 Carvedilol [Coreg (Beta Ron)] 3.125 mg PO BID 11/12/17 Furosemide [Lasix] 20 mg PO DAILY 11/12/17 Oxybutynin [Ditropan] 5 mg PO TID 11/12/17 Aspirin [Aspirin, Baby] 81 mg PO DAILY@0800 #30 tab.chew 11/13/17 Lisinopril [Zestril] 5 mg PO DAILY #30 tab 11/13/17 famotidine 20 mg tablet 20 mg PO QDAY PRN 11/16/17 Calcium Carbonate [Calcium] 500 mg PO DAILY 01/04/18 Psyllium Husk [Metamucil] 0.4 gm PO DAILY 01/04/18 [place]-3 Fatty Acids [Fish Oil] 500 mg PO DAILY 02/09/18 Past Medical History (Chronic Problems): Chronic Problems (Last Updated 01/30/18 @ 11:45 by Kami Tucker) JUAN (obstructive sleep apnea) (Chronic) Ischemic cardiomyopathy (Chronic) Chronic systolic congestive heart failure (Chronic) Atherosclerotic heart disease of [place] coronary artery without angina pectoris (Chronic) CABG x2- ACHARYA to LAD and SVG to OM 05/29/17 S/P CABG (coronary artery bypass graft) (Chronic ~05/29/17) CABG x2- ACHARYA to LAD and SVG to OM 05/29/17 Essential hypertension (Chronic) Surgical History: - - CABG x 2, bilateral ring trigger finger intervention, herniated lumbar disc surgery, tonsillectomy. Psychiatric History: No pertinent psych hx COMMERCIAL GLAZIER History: No pertinent COMMERCIAL GLAZIER history - *Family History Maternal Family History: Family History (Last Reviewed 12/29/17 @ 13:45 by Kami Tucker) Father Heart disease Hypertension History Items: - - Noted eye disease specifically corneal disease. Paternal Family History: Family History (Last Reviewed 12/29/17 @ 13:45 by Kami Tucker) Father Heart disease Hypertension History Items: Heart Disease, Hypertension Lives: Alone Smoking Status: Never smoker Tobacco Use: Non-smoker Alcohol: None Drugs: None Review of Systems - Review of Systems General: Denies: Fever, Night Sweats, Fatigue Cardiovascular: Reports: Shortness of Breath, Shortness of Breath at Rest. Denies: Chest Discomfort, Orthopnea, PND, Peripheral Edema, Palpitations, Lightheadedness, Dizziness, Near Syncope, Syncope Respiratory: Denies: Cough, Sputum Production, Hemoptysis Gastrointestinal: Denies: Hematemesis, Hematochezia, Melena Genitourinary: Denies: Dysuria, Hematuria Skin: Denies: Rash Subjectve: Patient sitting in a chair, mild to moderate respiratory distress with conversational dyspnea. Accessory muscle use. Objective: Vital Signs Temp Pulse Resp BP Pulse Ox 98.6 F 97 20 H 131/70 H 94 02/10/18 09:00 02/10/18 09:00 02/10/18 09:00 02/10/18 09:00 02/10/18 09:00 Oxygen Flow Rate (L/min) 2 Oxygen Delivery Method Nasal Cannula Weight: 114 lb 13.773 oz Body Mass Index (BMI) 22.4 General: Awake, Alert, Oriented x 3 HEENT: PERRL, EOMI, Sclera Non Icteric Neck: Supple, Good ROM, No Lymph Node Enlargement Lungs: Clear to auscultation Cardiovascular: Regular Rhythm, Normal S1, Normal S2, No Murmurs, No Rubs, No Gallops Vascular: No Carotid Bruits, Normal Femoral Pulses, Normal Radial Pulses, Normal Dorsalis Pedal Pulse, Normal Posterior Tibial Pulses Abdomen: Bowel Sounds Present, Soft, Non Tender, No HSM, No Organomegaly Extremities: No Cyanosis, No Clubbing, No edema Neurological: No Focal Motor or Sensory Deficit 02/09/18 22:05: pH Cancelled, Bicarbonate Actual Cancelled, POC Total CO2 Cancelled, Base Excess Cancelled, O2 Saturation Cancelled, ABG pCO2 Cancelled, ABG pO2 Cancelled, Panda Test Cancelled 02/09/18 22:11: pH 7.38, Bicarbonate Actual 58.3 H, POC Total CO2 > 50, Base Excess > 30 H, O2 Saturation 99, ABG pCO2 97.6 H*, ABG pO2 146 H, Panda Test POS 02/09/18 22:41: Troponin I 0.050 H 02/10/18 01:07: Troponin I 0.059 H 02/10/18 04:44: WBC 7.2, RBC 3.85 L, Hgb 12.8, Hct 41.8, MCV 108.6 H, MCH 33.2 H, MCHC 30.6 L, RDW 13.6, RDW Differential 53.2 H, Plt Count 145 L, MPV 10.4 02/10/18 04:44: Sodium 143, Potassium 4.0, Chloride 92 L, Carbon Dioxide > 45.0 H*, Anion Gap TNP, BUN 19 H, Creatinine 0.38 L, Est GFR (MDRD) Af Amer 214, Est GFR (MDRD) Non-Af 177, BUN/Creatinine Ratio 50.3 H, Glucose 93, Calcium 9.0, Triglycerides 95, Cholesterol 135, LDL Cholesterol 62, VLDL Cholesterol 19, HDL Cholesterol 54 02/10/18 04:44: Troponin I 0.051 H Rhythm: EKG: ECHO: Stress Test: Cardiac Cath: PCI: CT Surgery: Holter monitor: EPS: PPM: CXR: Chest CT Scan: Assessment/Plan 1. Ischemic cardiomyopathy: The patient has a known ischemic cardiomyopathy despite bypass surgery in 2016 with an EF around 35%. Patient's bypass surgery was complicated by respiratory distress requiring tracheostomy. Her most recent echo on January 23, 2018 showed an EF around 35%. Her chest x-ray does not show any significant pulmonary edema at this time. Her troponins are weakly positive, and would not recommend repeat catheterization at this time particularly given the patient's respiratory distress and hypercapnic spells. Patient may require repeat placement of BiPAP therapy until her respiratory status can be temporized. Patient was seen by pulmonary, and await their recommendations. Patient does have bilateral lower extremity edema and recommend Osvaldo bandages and a 1500 cc fluid restriction. Recommend IV Lasix 40 mg daily to achieve a negative fluid balance per day of approximately 1-2 L in an attempt to maximize her pulmonary function. Given her baseline cardiomyopathy, she is a poor candidate for dobutamine echocardiogram. Nuclear stress testing is unavailable at this time. We may want to consider repeat catheterization to ensure that her grafts are patent then proceed with intervention particularly of her circumflex system if her vein graft has failed to that territory. This can be achieved once the patient's pulmonary status has been stabilized. Would have a low threshold for steroid based therapy at this time. 2. Hyperlipidemia: Her LDL and HDL cholesterol are at goal. Continue Lipitor. 3. Thank you very much for the opportunity to participate in the cardiac care of your patient. Consultation time took place between 1030 and 11 AM. Code Visit Inpatient E&M: 88259 Init Hosp L2
--- NOTE | 2018-02-10 11:12 | CON.PCM_ITS ---
Problem List (1) Elevation of cardiac enzymes Status: Acute (2) Ischemic cardiomyopathy Status: Chronic (3) Chronic systolic congestive heart failure Status: Chronic (4) Atherosclerotic heart disease of [place] coronary artery without angina pectoris Status: Chronic Qualifiers: [place] vs. transplanted heart: unspecified whether [place] or transplanted heart Qualified Code(s): I25.10 - Atherosclerotic heart disease of [place] coronary artery without angina pectoris Comment: CABG x2- ACHARYA to LAD and SVG to OM 05/29/17 (5) S/P CABG (coronary artery bypass graft) Status: Chronic Comment: CABG x2- ACHARYA to LAD and SVG to OM 05/29/17 (6) Essential hypertension Status: Chronic (7) NSTEMI (non-ST elevated myocardial infarction) Status: Acute Reason for Consult Date of Consultation: 02/10/18 Reason for Consultation: Ischemic heart myopathy, coronary artery disease, non- STEMI, shortness of breath, LV dysfunction, CO2 retention. History of Present Illness: The patient is a 72 year old F, patient of Dr. Gilmore, with a history of cardiomyopathy with an EF of 35%, hypertension, hypercholesterolemia, severe COPD, chronic CO2 retention, who was brought to the emergency room by concerned friend on 02/09/18 for shortness of breath and weakness. She was found to have a markedly elevated PCO2 on ABG, and underwent BiPAP therapy. She is remained on BiPAP overnight and was recently taken off this morning to nasal cannula. In addition she reports she had bypass surgery in May 2017 I believe at [facility] but has not had a repeat catheterization since that time. At that time she received an urgent coronary bypass grafting with a free ACHARYA to the LAD and a reverse saphenous vein graft to the OM. Patient's care was complicated by ventilator dependent respiratory failure after returning from a skilled nursing. She underwent tracheostomy on 06/20/17 which was subsequently reversed at some point going forward. Patient's most recent echocardiogram was on 01/23/18 which showed an EF of 35%, trivial MR, trivial TR, an RVSP of 32 mmHg. Currently the patient is sitting in a chair, with moderate respiratory distress , some air hunger, and conversational dyspnea. She denies any chest pain. Chest x-ray on admission showed no definitive or vascular redistribution. EKG showed normal sinus rhythm with old septal wall myocardial infarction and old lateral wall myocardial infarction as well. No acute changes. Peak troponin is 0.05. [] Past Medical History Allergies/Adverse Reactions: Allergies homatropine Allergy (Verified 02/09/18 17:21) Hives carisoprodol [From Soma] Adverse Reaction (Verified 02/09/18 17:21) DIZZY escitalopram Adverse Reaction (Verified 02/09/18 17:25) Other hydrocodone Adverse Reaction (Verified 02/09/18 17:21) DIZZY metronidazole Adverse Reaction (Verified 02/09/18 17:21) DIZZY pregabalin [From Lyrica] Adverse Reaction (Verified 02/09/18 17:21) MUSCLE ACHES propoxyphene [From Darvon] Adverse Reaction (Verified 02/09/18 17:21) DIZZY Home Medications: Ambulatory Orders Medication Instructions Recorded Atorvastatin Calcium [Lipitor] 40 mg PO QHS 11/12/17 Carvedilol [Coreg (Beta Ron)] 3.125 mg PO BID 11/12/17 Furosemide [Lasix] 20 mg PO DAILY 11/12/17 Oxybutynin [Ditropan] 5 mg PO TID 11/12/17 Aspirin [Aspirin, Baby] 81 mg PO DAILY@0800 #30 tab.chew 11/13/17 Lisinopril [Zestril] 5 mg PO DAILY #30 tab 11/13/17 famotidine 20 mg tablet 20 mg PO QDAY PRN 11/16/17 Calcium Carbonate [Calcium] 500 mg PO DAILY 01/04/18 Psyllium Husk [Metamucil] 0.4 gm PO DAILY 01/04/18 [place]-3 Fatty Acids [Fish Oil] 500 mg PO DAILY 02/09/18 Past Medical History (Chronic Problems): Chronic Problems (Last Updated 01/30/18 @ 11:45 by Kami Tucker) JUAN (obstructive sleep apnea) (Chronic) Ischemic cardiomyopathy (Chronic) Chronic systolic congestive heart failure (Chronic) Atherosclerotic heart disease of [place] coronary artery without angina pectoris (Chronic) CABG x2- ACHARYA to LAD and SVG to OM 05/29/17 S/P CABG (coronary artery bypass graft) (Chronic ~05/29/17) CABG x2- ACHARYA to LAD and SVG to OM 05/29/17 Essential hypertension (Chronic) Surgical History: - - CABG x 2, bilateral ring trigger finger intervention, herniated lumbar disc surgery, tonsillectomy. 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 Paternal Family History: Family History (Last Reviewed 12/29/17 @ 13:45 by Kami Tucker) Father Heart disease Hypertension History Items: Heart Disease, Hypertension Lives: Alone Smoking Status: Never smoker Tobacco Use: Non-smoker Alcohol: None Drugs: None Review of Systems - Review of Systems General: Denies: Fever, Night Sweats, Fatigue Cardiovascular: Reports: Shortness of Breath, Shortness of Breath at Rest. Denies: Chest Discomfort, Orthopnea, PND, Peripheral Edema, Palpitations, Lightheadedness, Dizziness, Near Syncope, Syncope Respiratory: Denies: Cough, Sputum Production, Hemoptysis Gastrointestinal: Denies: Hematemesis, Hematochezia, Melena Genitourinary: Denies: Dysuria, Hematuria Skin: Denies: Rash Subjectve: Patient sitting in a chair, mild to moderate respiratory distress with conversational dyspnea. Accessory muscle use. Objective: Vital Signs Temp Pulse Resp BP Pulse Ox 98.6 F 97 20 H 131/70 H 94 02/10/18 09:00 02/10/18 09:00 02/10/18 09:00 02/10/18 09:00 02/10/18 09:00 Oxygen Flow Rate (L/min) 2 Oxygen Delivery Method Nasal Cannula Weight: 114 lb 13.773 oz Body Mass Index (BMI) 22.4 General: Awake, Alert, Oriented x 3 HEENT: PERRL, EOMI, Sclera Non Icteric Neck: Supple, Good ROM, No Lymph Node Enlargement Lungs: Clear to auscultation Cardiovascular: Regular Rhythm, Normal S1, Normal S2, No Murmurs, No Rubs, No Gallops Vascular: No Carotid Bruits, Normal Femoral Pulses, Normal Radial Pulses, Normal Dorsalis Pedal Pulse, Normal Posterior Tibial Pulses Abdomen: Bowel Sounds Present, Soft, Non Tender, No HSM, No Organomegaly Extremities: No Cyanosis, No Clubbing, No edema Neurological: No Focal Motor or Sensory Deficit 02/09/18 22:05: pH Cancelled, Bicarbonate Actual Cancelled, POC Total CO2 Cancelled, Base Excess Cancelled, O2 Saturation Cancelled, ABG pCO2 Cancelled, ABG pO2 Cancelled, Panda Test Cancelled 02/09/18 22:11: pH 7.38, Bicarbonate Actual 58.3 H, POC Total CO2 > 50, Base Excess > 30 H, O2 Saturation 99, ABG pCO2 97.6 H*, ABG pO2 146 H, Panda Test POS 02/09/18 22:41: Troponin I 0.050 H 02/10/18 01:07: Troponin I 0.059 H 02/10/18 04:44: WBC 7.2, RBC 3.85 L, Hgb 12.8, Hct 41.8, MCV 108.6 H, MCH 33.2 H , MCHC 30.6 L, RDW 13.6, RDW Differential 53.2 H, Plt Count 145 L, MPV 10.4 02/10/18 04:44: Sodium 143, Potassium 4.0, Chloride 92 L, Carbon Dioxide > 45.0 H*, Anion Gap TNP, BUN 19 H, Creatinine 0.38 L, Est GFR (MDRD) Af Amer 214, Est GFR (MDRD) Non-Af 177, BUN/Creatinine Ratio 50.3 H, Glucose 93, Calcium 9.0, Triglycerides 95, Cholesterol 135, LDL Cholesterol 62, VLDL Cholesterol 19, HDL Cholesterol 54 02/10/18 04:44: Troponin I 0.051 H Rhythm: EKG: ECHO: Stress Test: Cardiac Cath: PCI: CT Surgery: Holter monitor: EPS: PPM: CXR: Chest CT Scan: Assessment/Plan 1. Ischemic cardiomyopathy: The patient has a known ischemic cardiomyopathy despite bypass surgery in 2016 with an EF around 35%. Patient's bypass surgery was complicated by respiratory distress requiring tracheostomy. Her most recent echo on January 23, 2018 showed an EF around 35%. Her chest x-ray does not show any significant pulmonary edema at this time. Her troponins are weakly positive, and would not recommend repeat catheterization at this time particularly given the patient's respiratory distress and hypercapnic spells. Patient may require repeat placement of BiPAP therapy until her respiratory status can be temporized. Patient was seen by pulmonary, and await their recommendations. Patient does have bilateral lower extremity edema and recommend Osvaldo bandages and a 1500 cc fluid restriction. Recommend IV Lasix 40 mg daily to achieve a negative fluid balance per day of approximately 1-2 L in an attempt to maximize her pulmonary function. Given her baseline cardiomyopathy, she is a poor candidate for dobutamine echocardiogram. Nuclear stress testing is unavailable at this time. We may want to consider repeat catheterization to ensure that her grafts are patent then proceed with intervention particularly of her circumflex system if her vein graft has failed to that territory. This can be achieved once the patient' s pulmonary status has been stabilized. Would have a low threshold for steroid based therapy at this time. 2. Hyperlipidemia: Her LDL and HDL cholesterol are at goal. Continue Lipitor. 3. Thank you very much for the opportunity to participate in the cardiac care of your patient. Consultation time took place between 1030 and 11 AM. Code Visit Inpatient E&M: 28179 Init Hosp L2
--- NOTE | 2018-02-10 11:13 | CASEMGMT ---
SW was told that patient would like to go to group home for rehab. SW met with patient and she does not want to go to [facility] as she went there for therapy before and did not like it. SW told her [facility], [facility], and [facility] are all in network. She asked SW to make a referral to [facility]. SUSAN spoke with Clinical Handle And Vent Machine Operator, Gail and she will work on referral. Plan: SNF, possibly [facility] pending their acceptance. Pre-cert will need to be obtained as well. Carie JACOB WARNING ANALYST
--- NOTE | 2018-02-10 11:22 | CASEMGMT ---
REFERRAL FAXED TO VENTURA AT [facility]. WILL SEND THERAPY NOTES TO [facility] WHEN AVAILABLE. JEANIE PALENCIA, CLINICAL SUPPORT
--- NOTE | 2018-02-10 12:53 | CASEMGMT ---
[facility] is able to take patient. Clinical Performance Specialist is sending information to [facility] to obtain pre-cert. Patient may be ready over the weekend so as long as we get pre-cert she can go. A green sheet will be placed on her chart. Plan: [facility] under skilled level of care. Carie JACOB MSW
--- NOTE | 2018-02-10 12:57 | CASEMGMT ---
PT/OT evals faxed to Shala at [place]. Packet faxed to Edna at [facility] for pre-cert. Gail Gunderson, Clinical Support
--- NOTE | 2018-02-10 13:59 | CASEMGMT ---
Call to Svetlana at [facility], Svetlana gave verbal pre-approval for pt to go to [facility] upon discharge. Call to Shala at [facility], updated on verbal pre-approval from [facility]. Gail Gunderson, Clinical Support
--- NOTE | 2018-02-10 16:20 | CASEMGMT ---
SW received a call from patient's sister, Maame. She said she thought family would be a part of the d/c planning. She asked what the plan is. SUSAN told her SW spoke with patient and she is alert and oriented and chose [facility]. She said she is the POA and why didn't anyone talk with her. SUSAN told her at this time patient appears to be alert and oriented and has been making her own decisions here. SUSAN asked her where she would like patient to go and she was thinking maybe [facility]. She wanted to talk with her daughter and they would like to talk with a [facility]. They cannot come in today. SUSAN told her the name and number of the SW working on Tuesday. She said for right now leave things like they are and they will talk about it. SW spoke with patient and she said she will go wherever they want her to go. SW told her the SW will meet with them tomorrow. Plan: was [facility], now family may want a different facility. Insurance approved [facility] and [facility] accepted patient. SW to meet with family and patient Tuesday. Carie JACOB MSW
--- NOTE | 2018-02-10 20:30 | PCM.PROGNOTE ---
Patient Problems: Active and Suspected Problems (Last Updated 01/30/18 @ 11:45 by Kami Tucker) Acute respiratory failure with hypoxia and hypercapnia (Acute) Elevation of cardiac enzymes (Acute) Subjective: Patient is a 72-year-old female with a past medical history of ischemic cardiomyopathy with a 35% ejection fraction, chronic systolic congestive heart failure, CAD with history of CABG, hypertension and obstructive sleep apnea who presented to the emergency department at [facility] on 02/09/2018 complaining of increasing shortness of breath and abdominal discomfort. She was admitted to the hospital with a diagnosis of acute on chronic hypoxic and hypercapnic respiratory failure of uncertain etiology. She required BiPAP overnight. She was seen in consultation by Dr. Francois today who suspects cor pulmonale secondary to noncompliance with oxygen at home. She has decreased her oxygen to 1 L/min from [address] Francois feels she is at her baseline respiratory status and recommends compliance with home oxygen. She was also seen in consultation by Dr. Lopez who recommends diuresis to help improve her pulmonary status. In the future if her breathing improves she may be a candidate for a repeat cardiac catheterization to ensure that her grafts are patent and proceed with intervention if indicated. She tells me that she now realizes that she is no longer able to care for herself and she thinks she needs placement. This was discussed with the SW and she will be contacting [facility]. She has been afebrile since admission. Vital signs are stable and she is 100% saturated on 2 L nasal cannula. White blood cell count remains within normal limits. Platelets are mildly decreased at 145,000. Serum bicarb is greater than 45 and her PCO2 is chronically in the 90s. Troponins are indeterminate and not trending. It is likely due to the stress of acute respiratory failure. - Physical Exam General: Alert, Oriented x3, Cooperative, - - She had mild conversational dyspnea when walking back from the bathroom. When she is using her walker she walks bent over at almost a 90? angle. HEENT: Atraumatic, Normocephalic Oral: Moist Mucosa, No Gingival or Mucosal Lesions/ Ulcerations Neck: Supple, No Nodes, Trachea Midline Lungs: No rhonchi, No wheeze, No rales, Diminished Cardiovascular: Regular rate, Regular Rhythm, Normal S1, Normal S2, No murmurs, No rub noted, No Gallop Abdomen: Bowel Sounds Present, Soft, Non Tender, Non-Distended Extremities: No clubbing, No cyanosis, Edema - her legs are wrapped in IVETH's BL for compression for swelling that is likely chronic due to pulmoanry HTN Skin: No rashes, No breakdown Neurological: Cranial nerves II-XII grossly intact, Neuro grossly intact Psych/Mental Status: Normal Affect, Appropriate Vital Signs Temp Pulse Resp BP Pulse Ox 98.7 F 80 18 104/69 100 02/10/18 19:52 02/10/18 19:52 02/10/18 19:52 02/10/18 19:52 02/10/18 19:52 Oxygen Flow Rate (L/min) 2 Oxygen Delivery Method Nasal Cannula Weight: 114 lb 13.773 oz Body Mass Index (BMI) 22.4 Intake and Output for Last 24 Hours 02/08/18 02/09/18 02/10/18 23:59 23:59 23:59 Intake Total 960 / 960 Output Total 200 / 200 Balance 760 / 760 Microbiology Past 72 Hours 02/09/18 23:09 Respiratory Panel (PCR) - Final Mucosa - Nasopharyngeal Laboratory Tests Past 24 Hrs 02/09/18 02/09/18 02/09/18 22:05 22:11 22:41 WBC RBC Hgb Hct MCV MCH MCHC RDW RDW Differential Plt Count MPV Specimen Type Cancelled ART Sample Site Cancelled R Radial pH Cancelled 7.38 Bicarbonate Actual Cancelled 58.3 H POC Total CO2 Cancelled > 50 Base Excess Cancelled > 30 H O2 Saturation Cancelled 99 O2 % Cancelled ABG pCO2 Cancelled 97.6 H* ABG pO2 Cancelled 146 H Panda Test Cancelled POS Respiration Rate Cancelled O2 Delivery Device Cancelled Nasal Can Liter Flow Cancelled 2.0 Minute Volume Cancelled Vent Mode Cancelled Tidal Volume Cancelled POC PEEP Cancelled POC Pressure Suppt Cancelled Pressure High Cancelled Pressure Low Cancelled Time High Cancelled Time Low Cancelled EPAP Cancelled IPAP Cancelled Blood Gas Notified Whom Cancelled HOSP Blood Gas Notified Time Cancelled 2205 Sodium Potassium Chloride Carbon Dioxide Anion Gap BUN Creatinine Estim Creat Clear Calc Est GFR (MDRD) Af Amer Est GFR (MDRD) Non-Af BUN/Creatinine Ratio Glucose Calcium Troponin I 0.050 H Triglycerides Cholesterol LDL Cholesterol VLDL Cholesterol HDL Cholesterol 0602/10/18 02/10/18 01:07 04:44 04:44 WBC 7.2 RBC 3.85 L Hgb 12.8 Hct 41.8 MCV 108.6 H MCH 33.2 H MCHC 30.6 L RDW 13.6 RDW Differential 53.2 H Plt Count 145 L MPV 10.4 Specimen Type Sample Site pH Bicarbonate Actual POC Total CO2 Base Excess O2 Saturation O2 % ABG pCO2 ABG pO2 Panda Test Respiration Rate O2 Delivery Device Liter Flow Minute Volume Vent Mode Tidal Volume POC PEEP POC Pressure Suppt Pressure High Pressure Low Time High Time Low EPAP IPAP Blood Gas Notified Whom Blood Gas Notified Time Sodium 143 Potassium 4.0 Chloride 92 L Carbon Dioxide > 45.0 H* Anion Gap TNP BUN 19 H Creatinine 0.38 L Estim Creat Clear Calc 35.99 Est GFR (MDRD) Af Amer 214 Est GFR (MDRD) Non-Af 177 BUN/Creatinine Ratio 50.3 H Glucose 93 Calcium 9.0 Troponin I 0.059 H Triglycerides 95 Cholesterol 135 LDL Cholesterol 62 VLDL Cholesterol 19 HDL Cholesterol 54 02/10/18 04:44 WBC RBC Hgb Hct MCV MCH MCHC RDW RDW Differential Plt Count MPV Specimen Type Sample Site pH Bicarbonate Actual POC Total CO2 Base Excess O2 Saturation O2 % ABG pCO2 ABG pO2 Panda Test Respiration Rate O2 Delivery Device Liter Flow Minute Volume Vent Mode Tidal Volume POC PEEP POC Pressure Suppt Pressure High Pressure Low Time High Time Low EPAP IPAP Blood Gas Notified Whom Blood Gas Notified Time Sodium Potassium Chloride Carbon Dioxide Anion Gap BUN Creatinine Estim Creat Clear Calc Est GFR (MDRD) Af Amer Est GFR (MDRD) Non-Af BUN/Creatinine Ratio Glucose Calcium Troponin I 0.051 H Triglycerides Cholesterol LDL Cholesterol VLDL Cholesterol HDL Cholesterol Medical Necessity - Tobacco Use Smoking Status: Never smoker Tobacco Use: Non-smoker Assessment/Plan All Active Problems (Last Updated 01/30/18 @ 11:45 by Kami Tucker) Acute respiratory failure with hypoxia and hypercapnia (Acute) Elevation of cardiac enzymes (Acute) NSTEMI (non-ST elevated myocardial infarction) (Acute) Impressions 1. Acute on chronic hypoxic and hypercarbic respiratory failure due to noncompliance with home oxygen with increased cor pulmonale. 2. Suspected JUAN 3. Coronary artery disease 4. Ischemic cardiomyopathy with a 35% ejection fraction 5. History of CABG 6. Dxtecjqxqkfwle-[id number] 7. Indeterminate troponin 8. Hypokalemia Lasix 40 mg IV daily Continue aerosolized bronchodilators Continue BiPAP at night PSG as an outpatient Ambulatory pulse ox prior to discharge Potassium has been supplemented Plan on DC to an ECF as she is no longer adequately able to care for herslf without assitance Code Visit Inpatient E&M: 42336 Subs Hosp L2
[2018-02-11] VITALS (19 sets, daily range): BP systolic 90–102; BP diastolic 49–66; PULSE 69–94; RESP 12–30; TEMP 36.6–37.1; O2SAT 95–100
[2018-02-11] MEDS: Oxybutynin 5 MG Tablet PO ×3 (05:23→22:57)
--- NOTE | 2018-02-11 07:07 | PCM.PROGNOTE ---
Patient Problems: Active and Suspected Problems (Last Updated 01/30/18 @ 11:45 by Kami Tucker) Acute respiratory failure with hypoxia and hypercapnia (Acute) Elevation of cardiac enzymes (Acute) Subjective: The patient was seen and examined at the bedside this morning. Events from the last 24 hours have been reviewed. The patient is currently afebrile, hemodynamically stable and maintaining appropriate oxygen saturations on 2 L/min via nasal cannula. The patient tolerated BiPAP overnight with a pressure setting of 16/7 cm of water with an FiO2 of 30%. She is currently resting comfortably in her bedside recliner without specific complaints. Objective: The patient's most recent lab work, culture data and imaging studies have all been personally reviewed. Respiratory viral panel was negative. - Physical Exam General: Alert, Cooperative, No apparent distress HEENT: Atraumatic, PERRLA, Normocephalic Oral: No Gingival or Mucosal Lesions/ Ulcerations Neck: Supple, No Nodes, Trachea Midline Lungs: No rhonchi, No wheeze, No rales, Diminished Cardiovascular: Regular rate, Regular Rhythm, Normal S1, Normal S2, No murmurs Abdomen: Bowel Sounds Present, Soft, Non Tender Extremities: No clubbing, No cyanosis, Edema Skin: No breakdown Musculoskeletal: No Tenderness to Palpation of Joints or Extremities Lymphatic: No Cervical, Supraclavicular, or Inguinal Adenopathy Neurological: Neuro grossly intact Psych/Mental Status: Normal Affect, Appropriate Vital Signs Temp Pulse Resp BP Pulse Ox 98.4 F 75 18 102/66 98 02/11/18 03:30 02/11/18 03:30 02/11/18 03:30 02/11/18 03:30 02/11/18 03:30 Oxygen Flow Rate (L/min) 2 Oxygen Delivery Method Nasal Cannula Weight: 117 lb 4.575 oz Body Mass Index (BMI) 22.4 Intake and Output for Last 24 Hours 02/09/18 02/10/18 02/11/18 23:59 23:59 23:59 Intake Total 960 / 960 240 / 240 Output Total 200 / 200 150 / 150 Balance 760 / 760 90 / 90 Microbiology Past 72 Hours 02/09/18 23:09 Respiratory Panel (PCR) - Final Mucosa - Nasopharyngeal Laboratory Tests Past 24 Hrs 02/09/18 22:05 Specimen Type Cancelled Sample Site Cancelled pH Cancelled Bicarbonate Actual Cancelled POC Total CO2 Cancelled Base Excess Cancelled O2 Saturation Cancelled O2 % Cancelled ABG pCO2 Cancelled ABG pO2 Cancelled Panda Test Cancelled Respiration Rate Cancelled O2 Delivery Device Cancelled Liter Flow Cancelled Minute Volume Cancelled Vent Mode Cancelled Tidal Volume Cancelled POC PEEP Cancelled POC Pressure Suppt Cancelled Pressure High Cancelled Pressure Low Cancelled Time High Cancelled Time Low Cancelled EPAP Cancelled IPAP Cancelled Blood Gas Notified Whom Cancelled Blood Gas Notified Time Cancelled Clinical Impression(s) from Imaging Studies Chest X-Ray 02/09/18 17:48 IMPRESSION: Stable opacity at the left lung base which may be due to atelectasis, infiltrate and/or effusion. Electronically Signed: Murali Lisa, at 18:54 EDT Tel , Service support , Medical Necessity - Tobacco Use Smoking Status: Never smoker Tobacco Use: Non-smoker Assessment/Plan All Active Problems (Last Updated 01/30/18 @ 11:45 by Kami Tucker) Acute respiratory failure with hypoxia and hypercapnia (Acute) Elevation of cardiac enzymes (Acute) NSTEMI (non-ST elevated myocardial infarction) (Acute) RECOMMENDATIONS: 1. Continue supplemental oxygen at 2 L/min. Obtain walking oximetry study prior to consideration for discharge from the hospital. 2. Continue aerosol treatments and diuretics. 3. Continue empiric bilevel therapy nightly. 4. Outpatient pulmonary function testing, walking oximetry and polysomnogram as previously indicated. 5. Close outpatient follow-up in the pulmonary medicine clinic within 2 weeks of her discharge from the hospital. 6. Maintain oxygen saturations 88-92%, to prevent paradoxical CO2 retention. IMPRESSIONS: 1. Acute on chronic hypoxic and hypercarbic respiratory failure Suspect element of cor pulmonale secondary to noncompliance with home oxygen, patient admits to not always wearing her 2 L with ambulation. She is a chronic CO2 retainer. She did have a mild elevation in her troponins, which is likely demand ischemia secondary to hypoxia. She appears to be back to her baseline respiratory status at this time and is on her current home dose of Lasix therapy. Respiratory panel was negative. She has no cough or sputum production. Recommend obtaining pulmonary function tests, walking oximetry, and polysomnogram as an outpatient as previously planned. Patient is scheduled for follow-up in the pulmonary clinic after testing. Recommend continuing 2 L of oxygen at rest, may require higher flow with exertion. Obtain ambulatory pulse ox prior to discharge. Patient would benefit from placement in a snf facility, as she is no longer able to care for herself at home. 2. Suspected obstructive sleep apnea Obtain PSG as previously planned. Patient will require noninvasive positive pressure therapy, whether that be PAP or Trilogy. Await studies as outpatient. If patient is placed in a skilled facility, BiPAP can be initiated there as well. 3. History of ischemic cardiomyopathy/chronic CHF/CABG/hypertension/NSTEMI/weakness Complicates care, management, recovery, and prognosis. Recommend evaluation for penitentiary placement, patient is in agreement during our discussion. This note was generated with [employer] dictation software. It may contain incorrect words, spelling, and punctuation that were not noted in checking the note before signing. Code Visit Inpatient E&M: 04676 Subs Hosp L2
[2018-02-11] MEDS: Ipratropium/Albuterol Sulfate 3 ML AMPUL.NEB INHALATION ×4 (07:27→23:05)
--- NOTE | 2018-02-11 09:23 | PCM.PN.CARD ---
Subjectve: Patient reports feeling much better today. Her breathing is much better. No conversational dyspnea. No chest pain. Telemetry shows normal sinus rhythm, no ectopy. Objective: Vital Signs Temp Pulse Resp BP Pulse Ox 98.4 F 88 16 102/66 98 02/11/18 03:30 02/11/18 07:27 02/11/18 07:27 02/11/18 03:30 02/11/18 07:27 Oxygen Flow Rate (L/min) 2 Oxygen Delivery Method Nasal Cannula Weight: 117 lb 4.575 oz Body Mass Index (BMI) 22.4 Intake and Output for Last 24 Hours 02/09/18 02/10/18 02/11/18 23:59 23:59 23:59 Intake Total 960 / 960 240 / 240 Output Total 200 / 200 150 / 150 Balance 760 / 760 90 / 90 General: Awake, Alert, Oriented x 3 HEENT: PERRL, EOMI, Sclera Non Icteric Neck: Supple, Good ROM, No Lymph Node Enlargement Lungs: Clear to auscultation Cardiovascular: Regular Rhythm, Normal S1, Normal S2, No Murmurs, No Rubs, No Gallops Vascular: No Carotid Bruits, Normal Femoral Pulses, Normal Radial Pulses, Normal Dorsalis Pedal Pulse, Normal Posterior Tibial Pulses Abdomen: Bowel Sounds Present, Soft, Non Tender, No HSM, No Organomegaly Extremities: No Cyanosis, No Clubbing, No edema Neurological: No Focal Motor or Sensory Deficit 02/09/18 22:05: pH Cancelled, Bicarbonate Actual Cancelled, POC Total CO2 Cancelled, Base Excess Cancelled, O2 Saturation Cancelled, ABG pCO2 Cancelled, ABG pO2 Cancelled, Panda Test Cancelled Rhythm: EKG: ECHO: Stress Test: Cardiac Cath: PCI: CT Surgery: Holter monitor: EPS: PPM: CXR: Chest CT Scan: Medical Necessity - Tobacco Use Smoking Status: Never smoker Tobacco Use: Non-smoker Assessment/Plan 1. Ischemic cardiomyopathy: The patient has a known ischemic cardiomyopathy despite bypass surgery in 2015 with an EF around 35%. Patient's bypass surgery was complicated by respiratory distress requiring tracheostomy. Her most recent echo on January 23, 2018 showed an EF around 35%. Her chest x-ray does not show any significant pulmonary edema at this time. Her troponins are weakly positive, and would not recommend repeat catheterization at this time particularly given the patient's respiratory distress and hypercapnic spells. Patient may require repeat catheterization once her pulmonary status has improved in order to check her bypass grafts. Patient's lower extremity edema has completely resolved. Recommend discontinuation of IV Lasix and switching her to Lasix 40 mg daily going forward. She was on 20 mg a day, but this does not appear to be adequate enough given her LV dysfunction. I have also changed her lisinopril to Cozaar 25 mg daily given her significant pulmonary dysfunction and to avoid the dry hacking cough side effect of lisinopril. Given her baseline cardiomyopathy, she is a poor candidate for dobutamine echocardiogram. We may want to consider repeat catheterization to ensure that her grafts are patent then proceed with intervention particularly of her circumflex system if her vein graft has failed to that territory. This can be achieved once the patient's pulmonary status has been stabilized. Would have a low threshold for steroid based therapy at this time. 2. Hyperlipidemia: Her LDL and HDL cholesterol are at goal. Continue Lipitor. 3. Thank you very much for the opportunity to participate in the cardiac care of your patient. Code Visit Inpatient E&M: 53764 Subs Hosp L2
[2018-02-11] MEDS: Famotidine 20 MG Tablet PO ×2 (09:38→22:57)
[2018-02-11] MEDS: Carvedilol 3.125 MG TABLET PO ×2 (09:38→22:57)
[2018-02-11] MEDS: Enoxaparin 40 MG/0.4 ML Syringe SC (09:39)
[2018-02-11] MEDS: Aspirin 81 MG TAB.CHEW PO (09:39)
[2018-02-11] MEDS: Erythromycin Base 1 OPTH.TUBE 1 APPLIC EACH EYE ×4 (09:39→22:57)
[2018-02-11] MEDS: Psyllium 1 PACKET PO (09:39)
--- NOTE | 2018-02-11 11:36 | CASEMGMT ---
Social Work Note PCU Received handoff from NIDIA Darnell regarding family's wish for a family meeting today. Received call from patient's sister Maame Jarrett, who is the patient's [facility]. Meeting set up for 1100 today. Maame expresses concern that patient cannot be making own decisions as patient has short term memory loss. Met with patient, sister Maame, and niece Melody in patient's room. Reviewed with patient reason for meeting today. Patient states remembers talking with Carie earlier in the week for discharge planning. Maame brought up again in meeting about wanting to be part of discharge planning process. Educated family, that if patient's present as alert and oriented, are making sense with decision making, then patient's are typically the ones to make own health care decisions. Patient interjected that wants Maame and Melody to make decisions, as the family will have to be traveling to see patient and patient would like for the facility to be convenient for the family. Discussed family's wishes for patient's discharge destination. This job specification writer looked up, in patient's room, list of facilities the family mentioned to see if in-network. The family expressing interest in [facility] and [facility]. Patient voiced that did not care for the therapy at [facility] and does not really wish to return to this facility (had been there previously). [facility] broached with patient, by family, as this job specification writer asking for a 2nd choice if [facility] cannot accept patient. Patient also voiced that does not want to go to [facility]. Family respected patient's voiced input and did not push for [facility] or [facility]. Patient does agree to go to [facility] however. This job specification writer agreed that social work will keep family updated to discharge planning. Conferred with Dr. Borja about timing of discharge plan. Not anticipating patient will be ready this weekend, so will be feasible to look into another facility. Called [facility] at [phone]. Spoke with German about need to talk with someone for referral. German took this job specification writer's name and number and will have someone call this job specification writer back. Updated patient and sister to conversation with physician, likely time frame of discharge early next week, and need to get a new precert if [facility] ends up being an option. The sister reports plan to go and look at [place] this weekend to see if this may be okay should [facility] not work out. Sister expressed appreciation for time and looking at a new plan. Plan: Waiting to hear back from [facility] regarding bed availability and then whether could accept this patient. SNF at discharge, facility pending. Social work to follow. -FAINA De Souza, QA SOFTWARE TEST ENGINEER
--- NOTE | 2018-02-11 15:00 | PN_ITS ---
Patient Problems: Active and Suspected Problems (Last Updated 01/30/18 @ 11:45 by Kami Tucker ) Acute respiratory failure with hypoxia and hypercapnia (Acute) Elevation of cardiac enzymes (Acute) Subjective: Patient was seen and examined. Remains on oxygen intranasal cannula, using BiPAP at night. Denies any fever or chills or worsening shortness of breath. States she feels much better than before. Reported to be slightly hypotensive and morning Lasix as well as losartan were held. Objective: Physical Exam General: Alert, Oriented x3, Cooperative, dyspneic with conversation, cachectic , pale, no jaundice HEENT: Atraumatic, Normocephalic Oral: Moist Mucosa Neck: Supple, No Nodes, Trachea Midline Lungs: No rhonchi, No wheeze, No rales, Diminished Cardiovascular: Regular rate, Regular Rhythm, Normal S1, Normal S2, No murmurs, No rub noted, No Gallop Abdomen: Bowel Sounds Present, Soft, Non Tender, Non-Distended Extremities: No clubbing, No cyanosis, Edema, there is bilateral 2+1 edema, worse at ankles Neurological: Cranial nerves II-XII grossly intact, Neuro grossly intact Psych/Mental Status: Normal Affect, Appropriate Vitals/I&O's: Vital Signs Temp Pulse Resp BP Pulse Ox 98.6 F 74 16 92/50 L 100 02/11/18 11:28 02/11/18 14:27 02/11/18 14:27 02/11/18 11:28 02/11/18 11:28 Oxygen Flow Rate (L/min) 2 Oxygen Delivery Method Nasal Cannula Weight: 53.2 kg Body Mass Index (BMI) 22.4 Intake and Output for Last 24 Hours 02/09/18 02/10/18 02/11/18 23:59 23:59 23:59 Intake Total 960 / 960 790 / 790 Output Total 200 / 200 750 / 750 Balance 760 / 760 40 / 40 Microbiology Past 72 Hours 02/09/18 23:09 Mucosa - Nasopharyngeal Respiratory Panel (PCR) - Final Current Medications Acetaminophen (Tylenol) 650 mg PO Q6H PRN PRN PRN Reason: Mild Pain (scale 0-3)/T>100.7 Al Hydroxide/Mg Hydroxide (Mylanta Ii) 30 ml PO Q6H PRN PRN PRN Reason: Gastric burning Albuterol Sulfate (Ventolin Aerosols) 2.5 mg INHALATION Q2H PRN PRN PRN Reason: SHORTNESS OF BREATH Albuterol/Ipratropium (Duoneb) 3 ml INHALATION Q4H.RT [facility] Last Admin: 02/11/18 14:27 Dose: 3 ml Aspirin (Aspirin, Baby) 81 mg PO DAILY@0800 [facility] Last Admin: 02/11/18 09:39 Dose: 81 mg Atorvastatin Calcium (Lipitor) 40 mg PO QHS [facility] Last Admin: 02/10/18 21:34 Dose: 40 mg Carvedilol (Coreg) 3.125 mg PO BID [facility] Last Admin: 02/11/18 09:38 Dose: 3.125 mg Enoxaparin Sodium (Lovenox) 40 mg SC DAILY@1000 [facility] Last Admin: 02/11/18 09:39 Dose: 40 mg Erythromycin () 1 applic EACH EYE 4X/DAY [facility] Last Admin: 02/11/18 14:29 Dose: 1 applicatio Famotidine (Pepcid) 20 mg PO BID [facility] Last Admin: 02/11/18 09:38 Dose: 20 mg Furosemide (Lasix) 40 mg PO DAILY [facility] Last Admin: 02/11/18 11:45 Dose: Not Given Hydralazine HCl (Apresoline Iv) 10 mg IV Q4H PRN PRN PRN Reason: SBP > 160 Losartan Potassium (Cozaar) 25 mg PO DAILY [facility] Last Admin: 02/11/18 11:44 Dose: Not Given Magnesium Hydroxide (Milk Of Magnesia) 30 ml PO DAILY PRN PRN Reason: Constipation Nitroglycerin (Nitrostat) 0.4 mg SUBLINGUAL Q5M PRN PRN Reason: CHEST PAIN Nutritional Formula (Lactose Free) (Ensure Clear) 120 ml PO 4X/DAY [facility] Last Admin: 02/11/18 14:29 Dose: 120 ml Ondansetron HCl (Zofran) 4 mg IV Q8H PRN PRN PRN Reason: NAUSEA Oxybutynin Chloride (Ditropan) 5 mg PO TID [facility] Last Admin: 02/11/18 14:29 Dose: 5 mg Psyllium Hydrophilic Mucilloid (Metamucil) 1 packet PO DAILY [facility] Last Admin: 02/11/18 09:39 Dose: 1 packet Sodium Chloride () 5 - 30 ml IV UD PRN PRN Reason: SALINE FLUSH Medical Necessity - Tobacco Use Smoking Status: Never smoker Tobacco Use: Non-smoker Assessment/Plan All Active Problems (Last Updated 01/30/18 @ 11:45 by Kami Tucker) Acute respiratory failure with hypoxia and hypercapnia (Acute) Elevation of cardiac enzymes (Acute) NSTEMI (non-ST elevated myocardial infarction) (Acute) 72-year-old female with past medical history of systolic CHF secondary to ischemic cardiomyopathy positive, with EF of 65%, 87 status post CABG, hypertension, JUAN admitted with worsening shortness of breath abdominal discomfort and managed as acute on chronic hypoxic/hypercapnic respiratory failure, improved on BiPAP. 1. Acute on chronic hypoxic and hypercarbic respiratory failure secondary to noncompliance with home oxygen with increased cor pulmonale, improving slightly , patient is on oxygen and BiPAP, pulmonology and cardiology consulted and following, Lasix 40 mg p.o. daily, continue to follow with strict I's and O's. 2. Elevated troponin secondary to demand ischemia, no acute cardiac issues at the moment, will continue to monitor 3. Suspected JUAN/CAD s/p CABG/Ischemic cardiomyopathy with a 35% ejection fraction/Hyperlipidemia 4. Hypokalemia, resolved, repeat BMP in am 5. DVT PPx - Lovenox SC 6. Disposition: Waiting on precert and discharge top SNF Code Visit Inpatient E&M: 80926 Subs Hosp L2
--- NOTE | 2018-02-11 17:56 | CASEMGMT ---
Social Work PCU Received return call from Glendy at [facility] late in the afternoon. Gave verbal referral. Per Glendy, patient can be accepted. Faxed referral information to confirmed fax. Will need to change precert to [facility], which can be worked on Tuesday. Message left for patient's sister with update that first choice of SNF does have a bed. PLAN: SNF level of care. Anticipate to be able to finalize plan on Tuesday. -FAINA De Souza, ALGOLOGY TEACHER
[2018-02-11] MEDS: Atorvastatin Calcium 40 MG Tablet PO (22:57)
[2018-02-12] VITALS (21 sets, daily range): BP systolic 99–115; BP diastolic 57–72; PULSE 63–94; RESP 12–20; TEMP 36.6–37.1; O2SAT 93–99
[2018-02-12] MEDS: Ipratropium/Albuterol Sulfate 3 ML AMPUL.NEB INHALATION ×6 (03:17→22:37)
[2018-02-12 06:35] LABS: BUN 23 mg/dL (7-18); BUN/Creat Ratio 84.2 RATIO (10-20); Calcium,Total 8.4 mg/dL (8.5-10.1); Carbon Dioxide > 45.0 mmol/L (21.0-32.0); Chloride 96 mmol/L (98-107); Creatinine, Serum 0.27 mg/dL (0.55-1.02); EST Glomerular Filtration Rate 258 mL/min (>60); Est Glom Filt Rate - Afr Amer 312 mL/min (>60); Estimated Creatinine Clearance 35.99 ml/min; Glucose 102 mg/dL (74-106); Potassium 3.7 mmol/L (3.5-5.1); Sodium Level 143 mmol/L (136-145)
[2018-02-12] MEDS: Oxybutynin 5 MG Tablet PO ×3 (06:46→21:20)
--- NOTE | 2018-02-12 08:14 | PCM.PROGNOTE ---
Patient Problems: Active and Suspected Problems (Last Updated 01/30/18 @ 11:45 by Kami Tucker) Acute respiratory failure with hypoxia and hypercapnia (Acute) Elevation of cardiac enzymes (Acute) Subjective: The patient was seen and examined at the bedside this morning. Events from the last 24 hours have been reviewed. The patient is currently afebrile, hemodynamically stable and maintaining appropriate oxygen saturations on 2 L/min via nasal cannula. The patient was again tolerant of BiPAP overnight with a pressure setting of 16/7 cm of water. There are tentative plans for disposition to nursing home facility, potentially tomorrow. Objective: The patient's most recent lab work, culture data and imaging studies have all been personally reviewed. Respiratory viral panel was negative. - Physical Exam General: Alert, Cooperative, No apparent distress HEENT: Atraumatic, PERRLA, Normocephalic Oral: No Gingival or Mucosal Lesions/ Ulcerations Neck: Supple, No Nodes, Trachea Midline Lungs: No rhonchi, No wheeze, No rales, Diminished Cardiovascular: Regular rate, Regular Rhythm, Normal S1, Normal S2, No murmurs Abdomen: Bowel Sounds Present, Soft, Non Tender Extremities: No clubbing, No cyanosis, No edema Skin: No breakdown Musculoskeletal: No Tenderness to Palpation of Joints or Extremities Lymphatic: No Cervical, Supraclavicular, or Inguinal Adenopathy Neurological: Neuro grossly intact Psych/Mental Status: Normal Affect, Appropriate Vital Signs Temp Pulse Resp BP Pulse Ox 97.9 F 79 16 115/69 97 02/12/18 06:45 02/12/18 07:20 02/12/18 07:20 02/12/18 06:45 02/12/18 07:20 Oxygen Flow Rate (L/min) 2 Oxygen Delivery Method Nasal Cannula Weight: 112 lb 14.027 oz Body Mass Index (BMI) 22.4 Intake and Output for Last 24 Hours 02/10/18 02/11/18 02/12/18 23:59 23:59 23:59 Intake Total 960 / 960 1730 / 1730 100 / 100 Output Total 200 / 200 1375 / 1375 Balance 760 / 760 355 / 355 100 / 100 Microbiology Past 72 Hours 02/09/18 23:09 Respiratory Panel (PCR) - Final Mucosa - Nasopharyngeal Laboratory Tests Past 24 Hrs 02/12/18 05:45 Sodium 143 Potassium 3.7 Chloride 96 L Carbon Dioxide > 45.0 H* Anion Gap TNP BUN 23 H Creatinine 0.27 L Estim Creat Clear Calc 35.99 Est GFR (MDRD) Af Amer 312 Est GFR (MDRD) Non-Af 258 BUN/Creatinine Ratio 84.2 H Glucose 102 Calcium 8.4 L Clinical Impression(s) from Imaging Studies Chest X-Ray 02/09/18 17:48 IMPRESSION: Stable opacity at the left lung base which may be due to atelectasis, infiltrate and/or effusion. Electronically Signed: Murali Gonzalez, at 18:54 EDT Tel , Service support , Medical Necessity - Tobacco Use Smoking Status: Never smoker Tobacco Use: Non-smoker Assessment/Plan All Active Problems (Last Updated 01/30/18 @ 11:45 by Kami Tucker) Acute respiratory failure with hypoxia and hypercapnia (Acute) Elevation of cardiac enzymes (Acute) NSTEMI (non-ST elevated myocardial infarction) (Acute) RECOMMENDATIONS: 1. Continue supplemental oxygen at 2 L/min. Obtain walking oximetry study prior to consideration for discharge from the hospital. 2. Continue aerosol treatments and diuretics. 3. Continue empiric bilevel therapy nightly. 4. Outpatient pulmonary function testing, walking oximetry and polysomnogram as previously indicated. 5. Close outpatient follow-up in the pulmonary medicine clinic within 2 weeks of her discharge from the hospital. 6. Maintain oxygen saturations 88-92%, to prevent paradoxical CO2 retention. IMPRESSIONS: 1. Acute on chronic hypoxic and hypercarbic respiratory failure Suspect element of cor pulmonale secondary to noncompliance with home oxygen, patient admits to not always wearing her 2 L with ambulation. She is a chronic CO2 retainer. She did have a mild elevation in her troponins, which is likely demand ischemia secondary to hypoxia. She appears to be back to her baseline respiratory status at this time and is on her current home dose of Lasix therapy. Respiratory panel was negative. She has no cough or sputum production. Recommend obtaining pulmonary function tests, walking oximetry, and polysomnogram as an outpatient as previously planned. Patient is scheduled for follow-up in the pulmonary clinic after testing. Recommend continuing 2 L of oxygen at rest, may require higher flow with exertion. Obtain ambulatory pulse ox prior to discharge. Patient would benefit from placement in a nursing home facility, as she is no longer able to care for herself at home. 2. Suspected obstructive sleep apnea Obtain PSG as previously planned. Patient will require noninvasive positive pressure therapy, whether that be PAP or Trilogy. Await studies as outpatient. If patient is placed in a skilled facility, BiPAP can be initiated there as well. 3. History of ischemic cardiomyopathy/chronic CHF/CABG/hypertension/NSTEMI/weakness Complicates care, management, recovery, and prognosis. There are tentative disposition plans for nursing home placement, potentially tomorrow. This note was generated with [employer] dictation software. It may contain incorrect words, spelling, and punctuation that were not noted in checking the note before signing. Code Visit Inpatient E&M: 57552 Subs Hosp L2
--- NOTE | 2018-02-12 08:18 | PN_ITS ---
Patient Problems: Active and Suspected Problems (Last Updated 01/30/18 @ 11:45 by Kami Tucker ) Acute respiratory failure with hypoxia and hypercapnia (Acute) Elevation of cardiac enzymes (Acute) Subjective: The patient was seen and examined at the bedside this morning. Events from the last 24 hours have been reviewed. The patient is currently afebrile, hemodynamically stable and maintaining appropriate oxygen saturations on 2 L/ min via nasal cannula. The patient was again tolerant of BiPAP overnight with a pressure setting of 16/7 cm of water. There are tentative plans for disposition to [facility] facility, potentially tomorrow. Objective: The patient's most recent lab work, culture data and imaging studies have all been personally reviewed. Respiratory viral panel was negative. - Physical Exam General: Alert, Cooperative, No apparent distress HEENT: Atraumatic, PERRLA, Normocephalic Oral: No Gingival or Mucosal Lesions/ Ulcerations Neck: Supple, No Nodes, Trachea Midline Lungs: No rhonchi, No wheeze, No rales, Diminished Cardiovascular: Regular rate, Regular Rhythm, Normal S1, Normal S2, No murmurs Abdomen: Bowel Sounds Present, Soft, Non Tender Extremities: No clubbing, No cyanosis, No edema Skin: No breakdown Musculoskeletal: No Tenderness to Palpation of Joints or Extremities Lymphatic: No Cervical, Supraclavicular, or Inguinal Adenopathy Neurological: Neuro grossly intact Psych/Mental Status: Normal Affect, Appropriate Vital Signs Temp Pulse Resp BP Pulse Ox 97.9 F 79 16 115/69 97 02/12/18 06:45 02/12/18 07:20 02/12/18 07:20 02/12/18 06:45 02/12/18 07:20 Oxygen Flow Rate (L/min) 2 Oxygen Delivery Method Nasal Cannula Weight: 112 lb 14.027 oz Body Mass Index (BMI) 22.4 Intake and Output for Last 24 Hours 02/10/18 02/11/18 02/12/18 23:59 23:59 23:59 Intake Total 960 / 960 1730 / 1730 100 / 100 Output Total 200 / 200 1375 / 1375 Balance 760 / 760 355 / 355 100 / 100 Microbiology Past 72 Hours 02/09/18 23:09 Respiratory Panel (PCR) - Final Mucosa - Nasopharyngeal Laboratory Tests Past 24 Hrs 02/12/18 05:45 Sodium 143 Potassium 3.7 Chloride 96 L Carbon Dioxide > 45.0 H* Anion Gap TNP BUN 23 H Creatinine 0.27 L Estim Creat Clear Calc 35.99 Est GFR (MDRD) Af Amer 312 Est GFR (MDRD) Non-Af 258 BUN/Creatinine Ratio 84.2 H Glucose 102 Calcium 8.4 L Clinical Impression(s) from Imaging Studies Chest X-Ray 02/09/18 17:48 IMPRESSION: Stable opacity at the left lung base which may be due to atelectasis, infiltrate and/or effusion. Electronically Signed: Murali Gonzalez, at 18:54 EDT Tel , Service support , Medical Necessity - Tobacco Use Smoking Status: Never smoker Tobacco Use: Non-smoker Assessment/Plan All Active Problems (Last Updated 01/30/18 @ 11:45 by Kami Tucker) Acute respiratory failure with hypoxia and hypercapnia (Acute) Elevation of cardiac enzymes (Acute) NSTEMI (non-ST elevated myocardial infarction) (Acute) RECOMMENDATIONS: 1. Continue supplemental oxygen at 2 L/min. Obtain walking oximetry study prior to consideration for discharge from the hospital. 2. Continue aerosol treatments and diuretics. 3. Continue empiric bilevel therapy nightly. 4. Outpatient pulmonary function testing, walking oximetry and polysomnogram as previously indicated. 5. Close outpatient follow-up in the pulmonary medicine clinic within 2 weeks of her discharge from the hospital. 6. Maintain oxygen saturations 88-92%, to prevent paradoxical CO2 retention. IMPRESSIONS: 1. Acute on chronic hypoxic and hypercarbic respiratory failure Suspect element of cor pulmonale secondary to noncompliance with home oxygen, patient admits to not always wearing her 2 L with ambulation. She is a chronic CO2 retainer. She did have a mild elevation in her troponins, which is likely demand ischemia secondary to hypoxia. She appears to be back to her baseline respiratory status at this time and is on her current home dose of Lasix therapy. Respiratory panel was negative. She has no cough or sputum production. Recommend obtaining pulmonary function tests, walking oximetry, and polysomnogram as an outpatient as previously planned. Patient is scheduled for follow-up in the pulmonary clinic after testing. Recommend continuing 2 L of oxygen at rest, may require higher flow with exertion. Obtain ambulatory pulse ox prior to discharge. Patient would benefit from placement in a penitentiary facility, as she is no longer able to care for herself at home. 2. Suspected obstructive sleep apnea Obtain PSG as previously planned. Patient will require noninvasive positive pressure therapy, whether that be PAP or Trilogy. Await studies as outpatient. If patient is placed in a skilled facility, BiPAP can be initiated there as well. 3. History of ischemic cardiomyopathy/chronic CHF/CABG/hypertension/NSTEMI/ weakness Complicates care, management, recovery, and prognosis. There are tentative disposition plans for penitentiary placement, potentially tomorrow. This note was generated with [employer] dictation software. It may contain incorrect words, spelling, and punctuation that were not noted in checking the note before signing. Code Visit Inpatient E&M: 15108 Subs Hosp L2
--- NOTE | 2018-02-12 09:04 | PCM.PN.CARD ---
Subjectve: Patient continues to slowly improve, sitting up in a chair today, no further wheezing. Awaiting placement at assisted living center. Objective: Vital Signs Temp Pulse Resp BP Pulse Ox 97.9 F 79 16 115/69 97 02/12/18 06:45 02/12/18 07:20 02/12/18 07:20 02/12/18 06:45 02/12/18 07:20 Oxygen Flow Rate (L/min) 2 Oxygen Delivery Method Nasal Cannula Weight: 112 lb 14.027 oz Body Mass Index (BMI) 22.4 Intake and Output for Last 24 Hours 02/10/18 02/11/18 02/12/18 23:59 23:59 23:59 Intake Total 960 / 960 1730 / 1730 100 / 100 Output Total 200 / 200 1375 / 1375 Balance 760 / 760 355 / 355 100 / 100 General: Awake, Alert, Oriented x 3 HEENT: PERRL, EOMI, Sclera Non Icteric Neck: Supple, Good ROM, No Lymph Node Enlargement Lungs: Clear to auscultation Cardiovascular: Regular Rhythm, Normal S1, Normal S2, No Murmurs, No Rubs, No Gallops Vascular: No Carotid Bruits, Normal Femoral Pulses, Normal Radial Pulses, Normal Dorsalis Pedal Pulse, Normal Posterior Tibial Pulses Abdomen: Bowel Sounds Present, Soft, Non Tender, No HSM, No Organomegaly Extremities: No Cyanosis, No Clubbing, No edema Neurological: No Focal Motor or Sensory Deficit 02/12/18 05:45: Sodium 143, Potassium 3.7, Chloride 96 L, Carbon Dioxide > 45.0 H*, Anion Gap TNP, BUN 23 H, Creatinine 0.27 L, Est GFR (MDRD) Af Amer 312, Est GFR (MDRD) Non-Af 258, BUN/Creatinine Ratio 84.2 H, Glucose 102, Calcium 8.4 L Rhythm: EKG: ECHO: Stress Test: Cardiac Cath: PCI: CT Surgery: Holter monitor: EPS: PPM: CXR: Chest CT Scan: Medical Necessity - Tobacco Use Smoking Status: Never smoker Tobacco Use: Non-smoker Assessment/Plan 1. Ischemic cardiomyopathy: The patient has a known ischemic cardiomyopathy despite bypass surgery in 2016 with an EF around 35%. Patient's bypass surgery was complicated by respiratory distress requiring tracheostomy. Her most recent echo on January 23, 2018 showed an EF around 35%. Her chest x-ray does not show any significant pulmonary edema at this time. Her troponins are weakly positive, and would not recommend repeat catheterization at this time particularly given the patient's respiratory distress and hypercapnic spells. Patient may require repeat catheterization once her pulmonary status has improved in order to check her bypass grafts. Patient's lower extremity edema has completely resolved. Recommend discontinuation of IV Lasix and switching her to Lasix 40 mg daily going forward. She was on 20 mg a day, but this does not appear to be adequate enough given her LV dysfunction. I have also changed her lisinopril to Cozaar 25 mg daily given her significant pulmonary dysfunction and to avoid the dry hacking cough side effect of lisinopril. Patient is responded well to both of these therapies. Given her baseline cardiomyopathy, she is a poor candidate for dobutamine echocardiogram. I would recommend however a Lexiscan/MPI tomorrow morning to determine if she has any major areas of ischemia. If this is abnormal she may require repeat catheterization and graft angiography prior to transfer to assisted living center. If she requires catheterization this can be done on Tuesday with Dr. Marquez. Would have a low threshold for steroid based therapy at this time. 2. Hyperlipidemia: Her LDL and HDL cholesterol are at goal. Continue Lipitor. 3. Thank you very much for the opportunity to participate in the cardiac care of your patient. Code Visit Inpatient E&M: 83058 Subs Hosp L2
[2018-02-12] MEDS: Furosemide 40 MG Tablet PO (09:13)
[2018-02-12] MEDS: Famotidine 20 MG Tablet PO ×2 (09:13→21:20)
[2018-02-12] MEDS: Losartan Potassium 25 MG Tablet PO (09:13)
[2018-02-12] MEDS: Enoxaparin 40 MG/0.4 ML Syringe SC (09:13)
[2018-02-12] MEDS: Psyllium 1 PACKET PO (09:13)
[2018-02-12] MEDS: Aspirin 81 MG TAB.CHEW PO (09:13)
[2018-02-12] MEDS: Carvedilol 3.125 MG TABLET PO ×2 (09:13→21:20)
[2018-02-12] MEDS: Erythromycin Base 1 OPTH.TUBE 1 APPLIC EACH EYE ×4 (09:14→21:20)
--- NOTE | 2018-02-12 13:18 | PN_ITS ---
Patient Problems: Active and Suspected Problems (Last Updated 01/30/18 @ 11:45 by Kami Tucker ) Acute respiratory failure with hypoxia and hypercapnia (Acute) Elevation of cardiac enzymes (Acute) Subjective: Seen and examined. No new complaints. Having a stress test tomorrow. On 2 L of oxygen. Feels improved. Objective: Physical exam: General: Awake, Alert, Oriented x 3 HEENT: PERRL, EOMI, Sclera Non Icteric Neck: Supple, Good ROM, No Lymph Node Enlargement Lungs: Clear to auscultation Cardiovascular: Regular Rhythm, Normal S1, Normal S2, No Murmurs, No Rubs, No Gallops Vascular: No Carotid Bruits, Normal Femoral Pulses, Normal Radial Pulses, Normal Dorsalis Pedal Pulse, Normal Posterior Tibial Pulses Abdomen: Bowel Sounds Present, Soft, Non Tender, No HSM, No Organomegaly Extremities: No Cyanosis, No Clubbing, No edema Neurological: No Focal Motor or Sensory Deficit Vitals/I&O's: Vital Signs Temp Pulse Resp BP Pulse Ox 98.8 F 88 16 110/60 94 02/12/18 12:26 02/12/18 12:26 02/12/18 12:26 02/12/18 12:26 02/12/18 12:26 Oxygen Flow Rate (L/min) 2 Oxygen Delivery Method Nasal Cannula Weight: 51.2 kg Body Mass Index (BMI) 22.4 Intake and Output for Last 24 Hours 02/10/18 02/11/18 02/12/18 23:59 23:59 23:59 Intake Total 960 / 960 1730 / 1730 775 / 775 Output Total 200 / 200 1375 / 1375 Balance 760 / 760 355 / 355 775 / 775 Microbiology Past 72 Hours 02/09/18 23:09 Mucosa - Nasopharyngeal Respiratory Panel (PCR) - Final Laboratory Results 02/12/18 05:45: Sodium 143, Potassium 3.7, Chloride 96 L, Carbon Dioxide > 45.0 H*, Anion Gap TNP, BUN 23 H, Creatinine 0.27 L, Estim Creat Clear Calc 35.99, Est GFR (MDRD) Af Amer 312, Est GFR (MDRD) Non-Af 258, BUN/Creatinine Ratio 84.2 H, Glucose 102, Calcium 8.4 L Current Medications Acetaminophen (Tylenol) 650 mg PO Q6H PRN PRN PRN Reason: Mild Pain (scale 0-3)/T>100.7 Al Hydroxide/Mg Hydroxide (Mylanta Ii) 30 ml PO Q6H PRN PRN PRN Reason: Gastric burning Albuterol Sulfate (Ventolin Aerosols) 2.5 mg INHALATION Q2H PRN PRN PRN Reason: SHORTNESS OF BREATH Albuterol/Ipratropium (Duoneb) 3 ml INHALATION Q4H.RT [facility] Last Admin: 02/12/18 11:13 Dose: 3 ml Aspirin (Aspirin, Baby) 81 mg PO DAILY@0800 [facility] Last Admin: 02/12/18 09:13 Dose: 81 mg Atorvastatin Calcium (Lipitor) 40 mg PO QHS [facility] Last Admin: 02/11/18 22:57 Dose: 40 mg Carvedilol (Coreg) 3.125 mg PO BID [facility] Last Admin: 02/12/18 09:13 Dose: 3.125 mg Enoxaparin Sodium (Lovenox) 40 mg SC DAILY@1000 [facility] Last Admin: 02/12/18 09:13 Dose: 40 mg Erythromycin () 1 applic EACH EYE 4X/DAY [facility] Last Admin: 02/12/18 09:14 Dose: 1 applicatio Famotidine (Pepcid) 20 mg PO BID [facility] Last Admin: 02/12/18 09:13 Dose: 20 mg Furosemide (Lasix) 40 mg PO DAILY [facility] Last Admin: 02/12/18 09:13 Dose: 40 mg Hydralazine HCl (Apresoline Iv) 10 mg IV Q4H PRN PRN PRN Reason: SBP > 160 Losartan Potassium (Cozaar) 25 mg PO DAILY [facility] Last Admin: 02/12/18 09:13 Dose: 25 mg Magnesium Hydroxide (Milk Of Magnesia) 30 ml PO DAILY PRN PRN Reason: Constipation Nitroglycerin (Nitrostat) 0.4 mg SUBLINGUAL Q5M PRN PRN Reason: CHEST PAIN Nutritional Formula (Lactose Free) (Ensure Clear) 120 ml PO 4X/DAY [facility] Last Admin: 02/12/18 09:13 Dose: 120 ml Ondansetron HCl (Zofran) 4 mg IV Q8H PRN PRN PRN Reason: NAUSEA Oxybutynin Chloride (Ditropan) 5 mg PO TID [facility] Last Admin: 06/03/18 06:46 Dose: 5 mg Psyllium Hydrophilic Mucilloid (Metamucil) 1 packet PO DAILY [facility] Last Admin: 02/12/18 09:13 Dose: 1 packet Sodium Chloride () 5 - 30 ml IV UD PRN PRN Reason: SALINE FLUSH Medical Necessity - Tobacco Use Smoking Status: Never smoker Tobacco Use: Non-smoker Assessment/Plan All Active Problems (Last Updated 01/30/18 @ 11:45 by Kami Tucker) Acute respiratory failure with hypoxia and hypercapnia (Acute) Elevation of cardiac enzymes (Acute) NSTEMI (non-ST elevated myocardial infarction) (Acute) 72-year-old female with past medical history of systolic CHF secondary to ischemic cardiomyopathy positive, with EF of 65%, 87 status post CABG, hypertension, JUAN admitted with worsening shortness of breath abdominal discomfort and managed as acute on chronic hypoxic/hypercapnic respiratory failure, improved on BiPAP. 1. Acute on chronic hypoxic and hypercarbic respiratory failure secondary to noncompliance with home oxygen with increased cor pulmonale, improving patient is on oxygen and BiPAP, pulmonology and cardiology consulted and following, Lasix 40 mg p.o. daily, 2. Elevated troponin secondary to demand ischemia, no acute cardiac issues at the moment, stress test in am by cardiology. 3. Suspected JUAN/CAD s/p CABG/Ischemic cardiomyopathy with a 35% ejection fraction/Hyperlipidemia 4. Hypokalemia, resolved 5. DVT PPx - Lovenox SC 6. Disposition: Waiting on precert and discharge to SNF Code Visit Inpatient E&M: 52007 Subs Hosp L2
[2018-02-12] MEDS: 0.9% NaCl Peripheral Flush Adult/Peds IV (21:20)
[2018-02-12] MEDS: Atorvastatin Calcium 40 MG Tablet PO (21:20)
[2018-02-13 00:59] VITALS: RESP 12; RESP 24
[2018-02-13 03:00] VITALS: PULSE 76
[2018-02-13 03:15] VITALS: BP 112/62; PULSE 76; RESP 14; TEMP 36.8; O2SAT 99
--- NOTE | 2018-02-13 05:55 | EKG12_ITS ---
Test Reason : AM EKG Blood Pressure : / mmHG Vent. Rate : 080 BPM Atrial Rate : 080 BPM P-R Int : 122 ms QRS Dur : 086 ms QT Int : 366 ms P-R-T Axes : 071 064 097 degrees QTc Int : 422 ms Normal sinus rhythm Poor R wave progression Septal infarct , age undetermined Abnormal ECG Confirmed by KAMI DONAHUE, RIGOBERTO ([id number]), editor in chief newspaper RACQUEL MERA ([id number]) on 02/24/2018 2:12:02 PM Referred By: VANE Confirmed By:RIGOBERTO MCCLURE MD
[2018-02-16 17:17] LABS: Hemoglobin 11.8 g/dl (12.0-15.0); Mean Corp Hgb Conc 30.3 g/gl (32-36); Mean Corpuscular Hgb 33.6 pg (27.0-32.0); Mean Corpuscular Volume 11.1 fL (81-99); Red Blood Count 3.51 M/mm3 (4.2-5.4)
[2018-02-16 17:18] LABS: Absolute Lymphocyte Count 1.02 X10^3/ul (0.83-4.51); Absolute Neutrophil Count 5.2 X10^3/uL (2.0-7.7); Basophil% 0.3 % (0-1); Eosinophils% 2.1 % (0-5); Lymphocyte # 1.02 X10^3/ul (4.0); Lymphocyte % 14.6 % (19-41); Monocyte% 9.1 % (0-10); Neutrophil # 5.16 X10^3/uL (2.7-7.7); Neutrophil % 73.8 % (47-70); POSITIVE COUNT NO; POSITIVE DIFFERENTIAL NO; POSITIVE MORPHOLOGY NO
[2018-02-16 17:47] LABS: Partial Thromboplast Time 28.1 Seconds (24.1-36.2)
[2018-02-16 17:53] LABS: International Normalized Ratio 0.9; Prothrombin Time (Protime)PT. 12.3 SECONDS (11.7-14.9)
[2018-02-17 13:52] LABS: Hematocrit 44.6 % (37-47); Hemoglobin 13.2 g/dl (12.0-15.0); Mean Corp Hgb Conc 29.6 g/gl (32-36); Mean Corpuscular Hgb 33.4 pg (27.0-32.0); Mean Corpuscular Volume 112.9 fL (81-99); RBC Distribution Width CV 14.1 % (11.6-14.6); RBC Distribution Width SD 56.6 fl (35.1-43.9); Red Blood Count 3.95 M/mm3 (4.2-5.4); White Blood Count 6.6 K/mm3 (4.4-11.0)
[2018-02-17 13:53] LABS: Mean Platelet Vol. 10.3 fl (6.2-12.0); Platelet Count 118 K/mm3 (150-450); Scan Indicated on CBC? Y/N NO
[2018-02-18 07:35] LABS: BUN 19 mg/dL (7-18); BUN/Creat Ratio 70.4 RATIO (10-20); Calcium,Total 7.4 mg/dL (8.5-10.1); Chloride 94 mmol/L (98-107); Creatinine, Serum 0.27 mg/dL (0.55-1.02); EST Glomerular Filtration Rate 262 mL/min (>60); Est Glom Filt Rate - Afr Amer 318 mL/min (>60); Estimated Creatinine Clearance 35.99 ml/min; Glucose 99 mg/dL (74-106); Potassium 3.8 mmol/L (3.5-5.1); Sodium Level 140 mmol/L (136-145)
[2018-02-18 07:36] LABS: Carbon Dioxide > 45.0 mmol/L (21.0-32.0)
[2018-02-18 11:14] LABS: Magnesium 2.4 mg/dL (1.6-2.6)
[2018-02-22 14:53] LABS: BUN 24 mg/dL (7-18); BUN/Creat Ratio 85.7 RATIO (10-20); Calcium,Total 8.5 mg/dL (8.5-10.1); Chloride 95 mmol/L (98-107); Creatinine, Serum 0.28 mg/dL (0.55-1.02); EST Glomerular Filtration Rate 251 mL/min (>60); Est Glom Filt Rate - Afr Amer 304 mL/min (>60); Estimated Creatinine Clearance 35.99 ml/min; Glucose 97 mg/dL (74-106); Potassium 3.9 mmol/L (3.5-5.1); Sodium Level 144 mmol/L (136-145)
== END 2018-02-14 14:51 | disposition skilled nursing facility (03) | DRG 189 ==
LOC: ED 18:15 → PCU 20:20
PROVIDERS: Internal Medicine; Internal Medicine Cardiovascular Disease; Admitting Provider Family Medicine; Emergency Provider Emergency Medicine; Family Provider Family Medicine; PCP Family Medicine; Visit Provider Internal Medicine
DX: J96.21 Acute and chronic respiratory failure with hypoxia (principal); I50.22 Chronic systolic (congestive) heart failure; E87.2 Acidosis; J96.22 Acute and chronic respiratory failure with hypercapnia; I11.0 Hypertensive heart disease with heart failure; I25.5 Ischemic cardiomyopathy; I25.10 Atherosclerotic heart disease of native coronary artery without angina pectoris; Z95.1 Presence of aortocoronary bypass graft; G47.33 Obstructive sleep apnea (adult) (pediatric); I25.2 Old myocardial infarction; N32.81 Overactive bladder; E78.5 Hyperlipidemia, unspecified; H10.9 Unspecified conjunctivitis; E87.6 Hypokalemia; Z91.19 Patient's noncompliance with other medical treatment and regimen; Z99.81 Dependence on supplemental oxygen; I27.81 Cor pulmonale (chronic)
CPT/HCPCS: 36415; 36600; 71045; 80048; 80061; 82803; 83735; 83880; 84484; 85025; 85027; 85610; 85730; 87633; 93005; 94002; 94003; 94640; 94667; 94668; 97110; 97116; 97162; 97166; 97530; 97535; 97802; 99251; 99284; A4216; G0463; J1940